=== PATIENT | female | born 1945 | race Caucasian/White ===

== ENCOUNTER 2016-08-03 22:44 | Emergency (ER) | payer MEDICARE, MEDICAID ==
[2016-08-04 00:18] LABS: BASO % 0.6 % (0.0-1.0); EOS # 0.4 K/mm3 (0.0-0.50); LARGE UNSTAINED CELL # 0.2 K/mm3 (0.0-0.4); LARGE UNSTAINED CELL % 3.1 % (0.0-4.0); LYMPH # 2.9 K/mm3 (1.5-4.5); LYMPH % 38.7 % (24.0-44.0); MEAN CORPUSCULAR HEMOGLOBIN 30.7 pg (27.0-33.0); MEAN CORPUSCULAR HGB CONC 33.1 g/dl (32.0-36.5); MEAN CORPUSCULAR VOLUME 92.7 fl (80.0-96.0); MONO # 0.4 K/mm3 (0.0-0.8); MONO % 5.7 % (0.0-5.0); NEUTROPHILS # 3.5 K/mm3 (1.8-7.7); NEUTROPHILS % 46.8 % (36.0-66.0); PLATELET COUNT, AUTOMATED 239 k/mm3 (150-450); RED CELL DISTRIBUTION WIDTH 13.2 % (11.5-14.5); WHITE BLOOD COUNT 7.4 K/mm3 (4.0-10.0)
[2016-08-04] MEDS ORDERED: [UNRECOGNIZED DRUG - OTHER] As Ordered ONE (00:21)
[2016-08-04] MEDS ORDERED: HEPATITIS B IMMUNE GLOBULIN 5ML INJ (J1571) As Ordered ONE (00:21)
[2016-08-04] MEDS ORDERED: ADACEL/BOOSTRIX VACCINE (DIPHTH/PERTUSS/ACELL/TETANUS)0.5ML SYR (90715) As Ordered ONE (00:21)
[2016-08-04 00:45] LABS: ALBUMIN 3.8 GM/DL (3.2-5.2); ALBUMIN/GLOBULIN RATIO 0.88 (1.00-1.93); ALKALINE PHOSPHATASE 78 U/L (45-117); ALT/SGPT 25 U/L (12-78); ANION GAP 9 MEQ/L (8-16); AST/SGOT 14 U/L (15-37); BILIRUBIN,TOTAL 0.2 MG/DL (0.2-1.0); BLOOD UREA NITROGEN 22 MG/DL (7-18); CALCIUM LEVEL 9.5 MG/DL (8.8-10.2); CARBON DIOXIDE LEVEL 29 MEQ/L (21-32); CHLORIDE LEVEL 103 MEQ/L (98-107); CREATININE FOR GFR 0.91 MG/DL (0.55-1.02); GLOMERULAR FILTRATION RATE > 60.0 (>39); GLUCOSE, FASTING 141 MG/DL (83-110); POTASSIUM SERUM 4.4 MEQ/L (3.5-5.1); SODIUM LEVEL 141 MEQ/L (136-145); TOTAL PROTEIN 8.1 GM/DL (6.4-8.2)
[2016-08-04] MEDS ORDERED: EXPOSURE KIT-ADULT 7 DAY SUPPLY As Ordered ONE (01:00)
[2016-08-04 01:01] LABS: CONTROL LINE INT CTR LINE PRESENT
--- NOTE | 2016-08-04 01:16 | EDDOCDS ---
Nurse's Notes [facility] Name: Helen Alexandre Age: 70 yrs Sex: Female : 1945 Arrival Date: 08/03/2016 Time: 22:44 Bed I2 / M2 Private MD: NO PRIMARY PHYSICIAN, . Diagnosis: Puncture wound without foreign body of left thumb without damage to nail;Puncture wound without foreign body of right thumb without damage to nail;Contact with hypodermic needle Presentation: 08/03 22:51 Presenting complaint: Patient states: when taking out grandson's laundry, had needle rs3 stick exposure to bilateral thumb. Grandson and girlfriend uses drugs. Adult Sepsis Screening: The patient does not have new or worsening altered mentation. Patient's respiratory rate is less than 22. Systolic blood pressure is greater than 100. Patient has a qSOFA score of 0- Negative Sepsis Screen. Suicide/Homicide risk assessment- the patient denies having any suicidal and/or homicidal ideations and does not present with any other emotional, behavioral or mental health complaints. Status: Patient is not a career services officer or dependent. Transition of care: patient was not received from another setting of care. 22:51 Acuity: DALLIN Level 4 rs3 22:51 Method Of Arrival: Walkin/Carried/Asstd rs3 Triage Assessment: 23:00 General: Appears in no apparent distress. Pain: Denies pain. rs3 Historical: - Allergies: no known allergies; - Home Meds: 1. Zantac 150 mg Oral cap 1 cap once daily 2. Xanax 1 mg Oral tab 3 times per day 3. Wellbutrin SR 150 mg Oral TbER 2 times per day 4. metformin 500 mg Oral TG24 2 times per day 5. Spiriva with HandiHaler 18 mcg Inhl CpDv 1 cap once daily 6. Levoxyl 100 mcg Oral tab 1 tab once daily 7. Vicodin 5-500 mg Oral tab every 4-6 hours 8. aspirin 325 mg Oral TbEC once daily 9. Calcium + Vitamin D 600 mg calcium- 200 unit Oral tab daily 10. lisinopril 5 mg Oral tab 1 tab once daily 11. Prevacid 30 mg Oral cpDR 1 cap once daily - PMHx: Depression; COPD; Diabetes - NIDDM: controlled; Hypothyroidism; - PSHx: none; - Social history: Smoking status: Patient uses tobacco products, heavy tobacco smoker. No barriers to communication noted, The patient speaks fluent Bulgarian. - Family history: Not pertinent. - : The pt / caregiver states he / she is not on anticoagulants. Home medication list is obtained from the patient. - Exposure Risk Screening:: None identified. Screenin/26 00:13 Screening information is obtained from the patient. Fall risk: No risks identified. jmb Assistance ADL's: requires no assistance with activities of daily living. Abuse/DV Screen: The patient / caregiver reports he/she is: not in a situation that causes fear, pain or injury. Nutritional screening: No deficits noted. home support is adequate. 01:08 Advance Directives: Currently, there is no health care proxy. There is no active DNR jmb order. There is no living will. There is no Power of Emt Driver. Assessment: 00:13 General: Appears in no apparent distress, Behavior is crying. Pain: Denies pain. jmb Neurological: Level of Consciousness is awake, alert, obeys commands, Oriented to person, place, time, Speech is normal, Facial symmetry appears normal, Facial symmetry: tongue is midline. Cardiovascular: Capillary refill < 3 seconds Heart tones present Pulses are all present. Rhythm is regular. Respiratory: Airway is patent Respiratory effort is even, unlabored, Respiratory pattern is regular, symmetrical, Breath sounds are clear bilaterally. GI: Abdomen is non- distended Bowel sounds present X 4 quads. Abd is soft and non tender X 4 quads. Derm: Skin is pink, warm & dry. Musculoskeletal: Range of motion intact in all extremities. 01:08 General: Patient instructed on discharge instructions. Patient asked if there were any b questions regarding discharge, patient stated no. Patient signed discharge instructions. Patient discharged in stable condition. . Injury: 01:10 Injury Description: Needlestick Type of exposure: diabetic needle Site: right hand. b Vital Signs: 08/03 22:49 BP 168 / 83; Pulse 102; Resp 20 S; Temp 97.8(O); Pulse Ox 99% on R/A; Weight 67.13 kg gr2 (R); Height 5 ft. 6 in. (167.64 cm) (R); Pain 3/10; 08/04 01:08 BP 141 / 67; Pulse 83; Resp 18; Temp 98.6; Pulse Ox 98% ; Pain 0/10; ajs 08/03 22:49 Body Mass Index 23.89 (67.13 kg, 167.64 cm) gr2 Vitals: 08/03 22:49 Log In Time: August 03, 2016 at 22:49. gr2 ED Course: 22:48 Patient visited by Benoit Gar. gr2 22:48 NO PRIMARY PHYSICIAN, . is Private Physician. gr2 22:48 Patient moved to Waiting gr2 22:50 Patient visited by Benoit Gar. gr2 22:50 Patient moved to Pre RCE gr2 22:56 Triage Initiated rs3 23:25 Patient moved to Triage 2 dsf 23:34 Mendez Gutierrez PA-C is PHCP. ar2 23:34 Rudolph Leon MD is Attending Physician. ar2 23:34 Patient visited by Mendez Gutierrez PA-C. ar2 23:57 Patient moved to I2 / M2 jmb 08/04 00:12 CBC with Diff Sent. jmb 00:12 Complete Comphrensive Metabolic Sent. jmb 00:12 HIV EXPOSED(ONLY WITH PEP SET) Sent. jmb 00:12 Hepatitis B Surface Antibody Sent. jmb 00:12 Hepatitis B Surface Antigen Sent. jmb 00:13 The patient / caregiver is instructed regarding the plan of care and ED course. jmb 00:13 No IV's were initiated during this patient's visit. No procedures done that require jmb assistance. Labs drawn. (by ED staff). Sent per order to lab. 00:14 Patient visited by Atul Hart RN. jmb 00:35 HEPATITIS C ANTIBODY Sent. jmb 00:38 [facility] Payment Agreement was scanned into [employer] and attached to record. hs2 00:40 Patient name changed from Helen\S\\S\Vanzelf\S\ to Helen\S\ \S\Vanzelf. EDMS 00:58 Gautam Mojica MD is Referral Physician. ar2 00:58 Marcia Warren is Referral Physician. ar2 01:10 Patient visited by Vicki Begum. ajs Administered Medications: 00:35 Drug: Hepatitis B Immune Globulin (0.06ml/kg) 4 ml [hepatitis B immune globulin greatr jmb than 312 unit/mL intramuscular soln (4 mL)] {Food And Beverage Intern: [employer]. Exp: 04/2018. Lot #: [id number]. } Route: IM; Site: right gluteus; 00:36 Drug: Hepatitis B Virus Vaccine (PF) (for 20yo and up) 20 mcg [hepatitis B virus jmb vaccine recomb (PF) 10 mcg/0.5 mL intramuscular susp (1 mL)] {Food And Beverage Intern: [employer]. Exp: 03/18/2018. Lot #: [id number]. } Route: IM; Site: left deltoid; 00:36 Drug: Tetanus- Diptheria-Acellular Pertussis 0.5 ml [diphth,pertussis(acel),tetanus 2.5 jmb Lf unit-8 mcg-5 Lf/0.5mL IM syringe (0.5 mL)] {Food And Beverage Intern: [employer]. Exp: 09/29/2018. Lot #: [id number]. } Route: IM; Site: right deltoid; 01:08 Drug: Exposure Kit (<12y and >40kg or >12y and able to swallow pills) - (Raltegravir jmb Potassium 400 mg, Emtricitabine-Tenofovir 1 tabs) Route: PO; Order Results: Lab Order: CBC with Diff; SPEC'M 08/03/16 23:58 Test: WHITE BLOOD COUNT; Value: 7.4; Range: 4.0-10.0; Units: K/mm3; Status: F Test: RED BLOOD COUNT; Value: 4.22; Range: 4.00-5.40; Units: M/mm3; Status: F Test: HEMOGLOBIN; Value: 12.9; Range: 12.0-16.0; Units: g/dl; Status: F Test: HEMATOCRIT; Value: 39.1; Range: 36.0-47.0; Units: %; Status: F Test: MEAN CORPUSCULAR VOLUME; Value: 92.7; Range: 80.0-96.0; Units: fl; Status: F Test: MEAN CORPUSCULAR HEMOGLOBIN; Value: 30.7; Range: 27.0-33.0; Units: pg; Status: F Test: MEAN CORPUSCULAR HGB CONC; Value: 33.1; Range: 32.0-36.5; Units: g/dl; Status: F Test: RED CELL DISTRIBUTION WIDTH; Value: 13.2; Range: 11.5-14.5; Units: %; Status: F Test: PLATELET COUNT, AUTOMATED; Value: 239; Range: 150-450; Units: k/mm3; Status: F Test: NEUTROPHILS %; Value: 46.8; Range: 36.0-66.0; Units: %; Status: F Test: LYMPH %; Value: 38.7; Range: 24.0-44.0; Units: %; Status: F Test: MONO %; Value: 5.7; Range: 0.0-5.0; Abnormal: Above high normal; Units: %; Status: F Test: EOS %; Value: 5.0; Range: 0.0-3.0; Abnormal: Above high normal; Units: %; Status: F Test: BASO %; Value: 0.6; Range: 0.0-1.0; Units: %; Status: F Test: LARGE UNSTAINED CELL %; Value: 3.1; Range: 0.0-4.0; Units: %; Status: F Test: NEUTROPHILS #; Value: 3.5; Range: 1.8-7.7; Units: K/mm3; Status: F Test: LYMPH #; Value: 2.9; Range: 1.5-4.5; Units: K/mm3; Status: F Test: MONO #; Value: 0.4; Range: 0.0-0.8; Units: K/mm3; Status: F Test: EOS #; Value: 0.4; Range: 0.0-0.50; Units: K/mm3; Status: F Test: BASO #; Value: 0.0; Range: 0.0-0.2; Units: K/mm3; Status: F Test: LARGE UNSTAINED CELL #; Value: 0.2; Range: 0.0-0.4; Units: K/mm3; Status: F Lab Order: Complete Comphrensive Metabolic; SPEC'M 08/03/16 23:58 Test: GLUCOSE, FASTING; Value: 141; Range: 83-110; Abnormal: Above high normal; Units: MG/DL; Status: F Test: BLOOD UREA NITROGEN; Value: 22; Range: 7-18; Abnormal: Above high normal; Units: MG/DL; Status: F Test: CREATININE FOR GFR; Value: 0.91; Range: 0.55-1.02; Units: MG/DL; Status: F Test: GLOMERULAR FILTRATION RATE; Value: > 60.0; Range: >39; Status: F Test: SODIUM LEVEL; Value: 141; Range: 136-145; Units: MEQ/L; Status: F Test: POTASSIUM SERUM; Value: 4.4; Range: 3.5-5.1; Units: MEQ/L; Status: F Test: CHLORIDE LEVEL; Value: 103; Range: 98-107; Units: MEQ/L; Status: F Test: CARBON DIOXIDE LEVEL; Value: 29; Range: 21-32; Units: MEQ/L; Status: F Test: ANION GAP; Value: 9; Range: 8-16; Units: MEQ/L; Status: F Test: CALCIUM LEVEL; Value: 9.5; Range: 8.8-10.2; Units: MG/DL; Status: F Test: AST/SGOT; Value: 14; Range: 15-37; Abnormal: Below low normal; Units: U/L; Status: F Test: ALT/SGPT; Value: 25; Range: 12-78; Units: U/L; Status: F Test: ALKALINE PHOSPHATASE; Value: 78; Range: 45-117; Units: U/L; Status: F Test: BILIRUBIN,TOTAL; Value: 0.2; Range: 0.2-1.0; Units: MG/DL; Status: F Test: TOTAL PROTEIN; Value: 8.1; Range: 6.4-8.2; Units: GM/DL; Status: F Test: ALBUMIN; Value: 3.8; Range: 3.2-5.2; Units: GM/DL; Status: F Test: ALBUMIN/GLOBULIN RATIO; Value: 0.88; Range: 1.00-1.93; Abnormal: Below low normal; Status: F Test Note: ; Units are mL/min/1.73 m2 Chronic Kidney Disease Staging per NKF: Stage I & II GFR >=60 Normal to Mildly Decreased Stage III GFR 30-59 Moderately Decreased Stage IV GFR 15-29 Severely Decreased Stage V GFR <15 Very Little GFR Left ESRD GFR <15 on TYPE PHOTOGRAPHY SUPERVISOR Lab Order: HIV EXPOSED(ONLY WITH PEP SET); SPEC'M 08/03/16 23:58 Test: HIVEXPOSED0; Value: NEGATIVE; Range: NEGATIVE; Status: F Test: HIV EXPOSED PT 1; Value: NEGATIVE; Range: NEGATIVE; Status: F Test Note: ; This test was performed utilizing a immunochromatographic sandwich principle technique. Sensitivity of the assay is 100%. Specificity of the assay is 99.7%. Lab Order: Hepatitis B Surface Antibody; SPEC'M 08/03/16 23:58 Test: HEPATITIS B SURFACE ANTIBODY; Range: POSITIVE; Status: I Lab Order: Hepatitis B Surface Antigen; SPEC'M 08/03/16 23:58 Test: HEPATITIS B SURFACE ANTIGEN; Range: NEGATIVE; Status: I Lab Order: HEPATITIS C ANTIBODY; SPEC'M 08/03/16 23:58 Test: HEPATITIS C VIRUS FRANCIE INDEX; Range: <0.8; Units: INDEX; Status: I Outcome: 00:59 Discharge ordered by Provider. ar2 01:08 Discharge Assessment: Patient awake, alert and oriented x 3. No cognitive and/or jmb functional deficits noted. Patient verbalized understanding of disposition instructions. Patient awake and alert. obeys commands, Oriented to person, place and time. Patient verbalized understanding of disposition instructions. Patient has no functional deficits. patient administered narcotics - no. The following High Risk Discharge criteria are identified: None. Discharged to home ambulatory. Condition: stable. Discharge instructions given to patient, Instructed on discharge instructions, follow up and referral plans. medication usage, Demonstrated understanding of instructions, medications, Pt was receptive of discharge instructions/ teaching. Prescriptions given X 1. No special radiology studies were completed. Property sent home with patient. 01:16 Patient left the ED. patrick Signatures: Dispatcher [employer] EDMS Mendez Gutierrez PA-C PA-C ar2 Marie Awad RN RN rs3 Janina Martell RN RN Vicki Alexander Gainslee gr2 Atul Hart RN RN Nati Graham, Reg Reg hs2 Corrections: (The following items were deleted from the chart) 00:30 00:12 HEPATITIS C ANTIBODY+LAB sent. [facility] EDWA MTDD
--- NOTE | 2016-08-04 01:16 | EDDOCDS ---
Physician Documentation [facility] Name: Helen Alexandre Age: 70 yrs Sex: Female : 1945 Arrival Date: 08/03/2016 Time: 22:44 Bed I2 / M2 Private MD: NO PRIMARY PHYSICIAN, . Disposition: 08/04/16 00:59 Discharged to Home/Self Care. Impression: Puncture wound without foreign body of left thumb without damage to nail, Puncture wound without foreign body of right thumb without damage to nail, Contact with hypodermic needle. - Condition is Stable. - Discharge Instructions: Needle Stick Injury, Puncture Wound. - Prescriptions for Keflex 500 mg Oral Capsule - take 1 capsule by ORAL route every 12 hours for 7 days; 14 capsule. - Medication Reconciliation, Local Pharmacy Hours form. - Follow up: Gautam Mojica MD; When: Tomorrow; Reason: Recheck today's complaints. Follow up: Marcia Warren; When: Call to arrange an appointment; Reason: Recheck today's complaints. Follow up: Emergency Department; When: As needed; Reason: signs of infection. - Problem is new. - Symptoms have improved. - Notes: CALL DR. MOJICA TOMORROW FOR A FOLLOW UP APPOINTMENT. EXPLAIN THAT YOU WERE SEEN AND TREATED IN THE ER FOR A NEEDLE STICK EXPOSURE. TAKE ANTI-VIRAL MEDICATIONS DIRECTED PER PACKAGE INSTRUCTIONS. TAKE ANTIBIOTIC PRESCRIBED. KEEP WOUNDS CLEAN, DRY AND COVERED. FOLLOW UP WITH DR. WARREN WITH INFECTIOUS DISEASE ADVISED. Historical: - Allergies: no known allergies; - Home Meds: 1. Zantac 150 mg Oral cap 1 cap once daily 2. Xanax 1 mg Oral tab 3 times per day 3. Wellbutrin SR 150 mg Oral TbER 2 times per day 4. metformin 500 mg Oral TG24 2 times per day 5. Spiriva with HandiHaler 18 mcg Inhl CpDv 1 cap once daily 6. Levoxyl 100 mcg Oral tab 1 tab once daily 7. Vicodin 5-500 mg Oral tab every 4-6 hours 8. aspirin 325 mg Oral TbEC once daily 9. Calcium + Vitamin D 600 mg calcium- 200 unit Oral tab daily 10. lisinopril 5 mg Oral tab 1 tab once daily 11. Prevacid 30 mg Oral cpDR 1 cap once daily - PMHx: Depression; COPD; Diabetes - NIDDM: controlled; Hypothyroidism; - PSHx: none; - Social history: Smoking status: Patient uses tobacco products, heavy tobacco smoker. No barriers to communication noted, The patient speaks fluent Greenlandic. - Family history: Not pertinent. - : The pt / caregiver states he / she is not on anticoagulants. Home medication list is obtained from the patient. - Exposure Risk Screening:: None identified. Vital Signs: 08/03 22:49 BP 168 / 83; Pulse 102; Resp 20 S; Temp 97.8(O); Pulse Ox 99% on R/A; Weight 67.13 kg / gr2 148 lbs (R); Height 5 ft. 6 in. (167.64 cm) (R); Pain 3/10; 08/04 01:08 BP 141 / 67; Pulse 83; Resp 18; Temp 98.6; Pulse Ox 98% ; Pain 0/10; ajs 08/03 22:49 Body Mass Index 23.89 (67.13 kg, 167.64 cm) gr2 MDM: 08/03 23:52 Place PEP packet on chart ordered. ar2 23:53 CBC with Diff Ordered. EDMS 23:53 Complete Comphrensive Metabolic Ordered. EDMS 23:53 HIV EXPOSED(ONLY WITH PEP SET) Ordered. EDMS 23:53 Hepatitis B Surface Antibody Ordered. EDMS 23:53 Hepatitis B Surface Antigen Ordered. EDMS 08/04 00:18 Exposure Kit (<12y and >40kg or >12y and able to swallow pills) - (Raltegravir ar2 Potassium 400 mg, Emtricitabine-Tenofovir 1 tabs) PO Per package directions; Disp 7d pack.Truvada 1 po daily, Isentress 1 po BID.1st dose in ED ordered. 00:18 Hepatitis B Immune Globulin (0.06ml/kg) 4 ml IM once; *known nonresponders or never ar2 vaccinated only*. Max 5mL ordered. 00:18 Hepatitis B Virus Vaccine (PF) (for 20yo and up) (Engerix-B) 20 mcg IM once ordered. ar2 00:18 Tetanus- Diptheria-Acellular Pertussis 0.5 ml IM once; Routine booster 10-64yrs, >64 ar2 with child [facility] ordered. 00:18 Give 1st dose of PEP meds in ED ordered. ar2 00:26 Financial registration complete. hs2 00:33 HEPATITIS C ANTIBODY Ordered. EDMS 00:38 [facility] Payment Agreement was scanned into [employer] and attached to record. hs2 00:54 CBC with Diff Reviewed. ar2 00:54 Complete Comphrensive Metabolic Reviewed. ar2 Administered Medications: 00:35 Drug: Hepatitis B Immune Globulin (0.06ml/kg) 4 ml [hepatitis B immune globulin greatr jmb than 312 unit/mL intramuscular soln (4 mL)] {Transformation Lead: [employer]. Exp: 04/2018. Lot #: [id number]. } Route: IM; Site: right gluteus; 00:36 Drug: Hepatitis B Virus Vaccine (PF) (for 20yo and up) 20 mcg [hepatitis B virus jmb vaccine recomb (PF) 10 mcg/0.5 mL intramuscular susp (1 mL)] {Transformation Lead: [employer]. Exp: 03/18/2018. Lot #: [id number]. } Route: IM; Site: left deltoid; 00:36 Drug: Tetanus- Diptheria-Acellular Pertussis 0.5 ml [diphth,pertussis(acel),tetanus 2.5 jmb Lf unit-8 mcg-5 Lf/0.5mL IM syringe (0.5 mL)] {Transformation Lead: [employer]. Exp: 09/29/2018. Lot #: [id number]. } Route: IM; Site: right deltoid; 01:08 Drug: Exposure Kit (<12y and >40kg or >12y and able to swallow pills) - (Raltegravir jmb Potassium 400 mg, Emtricitabine-Tenofovir 1 tabs) Route: PO; Signatures: Dispatcher [employer] EDMS Mendez Gutierrez PA-C PA-C ar2 Marie Awad RN RN rs3 Atul Hart RN RN jmb Nati Méndez, Reg Reg hs2 The chart was reviewed and I authenticate all verbal orders and agree with the evaluation and treatment provided.Corrections: (The following items were deleted from the chart) 00:18 08/03 23:52 Consult Employee Health (M-F, 7:30a-4p) or Nursing Sound Art Instructor for source ar2 patient testing ordered. ar2 01/26 00:30 08/03 23:53 HEPATITIS C ANTIBODY+LAB ordered. EDMS EDMS Attachments: 08/04 00:38 [facility] Payment Agreement hs2 MTDD
[2016-08-05 11:42] LABS: HEPATITIS B SURFACE ANTIBODY NEGATIVE (POSITIVE)
--- NOTE | 2016-08-06 02:17 | EDDOCDS ---
Nurse's Notes [facility] Name: Helen Alexandre Age: 70 yrs Sex: Female : 1945 Arrival Date: 08/03/2016 Time: 22:44 Bed I2 / M2 Private MD: NO PRIMARY PHYSICIAN, . Diagnosis: Puncture wound without foreign body of left thumb without damage to nail;Puncture wound without foreign body of right thumb without damage to nail;Contact with hypodermic needle Presentation: 08/03 22:51 Presenting complaint: Patient states: when taking out grandson's laundry, had needle rs3 stick exposure to bilateral thumb. Grandson and girlfriend uses drugs. Adult Sepsis Screening: The patient does not have new or worsening altered mentation. Patient's respiratory rate is less than 22. Systolic blood pressure is greater than 100. Patient has a qSOFA score of 0- Negative Sepsis Screen. Suicide/Homicide risk assessment- the patient denies having any suicidal and/or homicidal ideations and does not present with any other emotional, behavioral or mental health complaints. Status: Patient is not a business services tech or dependent. Transition of care: patient was not received from another setting of care. 22:51 Acuity: DALLIN Level 4 rs3 22:51 Method Of Arrival: Walkin/Carried/Asstd rs3 Triage Assessment: 23:00 General: Appears in no apparent distress. Pain: Denies pain. rs3 Historical: - Allergies: no known allergies; - Home Meds: 1. Zantac 150 mg Oral cap 1 cap once daily 2. Xanax 1 mg Oral tab 3 times per day 3. Wellbutrin SR 150 mg Oral TbER 2 times per day 4. metformin 500 mg Oral TG24 2 times per day 5. Spiriva with HandiHaler 18 mcg Inhl CpDv 1 cap once daily 6. Levoxyl 100 mcg Oral tab 1 tab once daily 7. Vicodin 5-500 mg Oral tab every 4-6 hours 8. aspirin 325 mg Oral TbEC once daily 9. Calcium + Vitamin D 600 mg calcium- 200 unit Oral tab daily 10. lisinopril 5 mg Oral tab 1 tab once daily 11. Prevacid 30 mg Oral cpDR 1 cap once daily - PMHx: Depression; COPD; Diabetes - NIDDM: controlled; Hypothyroidism; - PSHx: none; - Social history: Smoking status: Patient uses tobacco products, heavy tobacco smoker. No barriers to communication noted, The patient speaks fluent Cameroonian. - Family history: Not pertinent. - : The pt / caregiver states he / she is not on anticoagulants. Home medication list is obtained from the patient. - Exposure Risk Screening:: None identified. Screenin/26 00:13 Screening information is obtained from the patient. Fall risk: No risks identified. jmb Assistance ADL's: requires no assistance with activities of daily living. Abuse/DV Screen: The patient / caregiver reports he/she is: not in a situation that causes fear, pain or injury. Nutritional screening: No deficits noted. home support is adequate. 01:08 Advance Directives: Currently, there is no health care proxy. There is no active DNR jmb order. There is no living will. There is no Power of Lard Tub Washer. Assessment: 00:13 General: Appears in no apparent distress, Behavior is crying. Pain: Denies pain. jmb Neurological: Level of Consciousness is awake, alert, obeys commands, Oriented to person, place, time, Speech is normal, Facial symmetry appears normal, Facial symmetry: tongue is midline. Cardiovascular: Capillary refill < 3 seconds Heart tones present Pulses are all present. Rhythm is regular. Respiratory: Airway is patent Respiratory effort is even, unlabored, Respiratory pattern is regular, symmetrical, Breath sounds are clear bilaterally. GI: Abdomen is non- distended Bowel sounds present X 4 quads. Abd is soft and non tender X 4 quads. Derm: Skin is pink, warm & dry. Musculoskeletal: Range of motion intact in all extremities. 01:08 General: Patient instructed on discharge instructions. Patient asked if there were any b questions regarding discharge, patient stated no. Patient signed discharge instructions. Patient discharged in stable condition. . Injury: 01:10 Injury Description: Needlestick Type of exposure: diabetic needle Site: right hand. b Vital Signs: 08/03 22:49 BP 168 / 83; Pulse 102; Resp 20 S; Temp 97.8(O); Pulse Ox 99% on R/A; Weight 67.13 kg gr2 (R); Height 5 ft. 6 in. (167.64 cm) (R); Pain 3/10; 08/04 01:08 BP 141 / 67; Pulse 83; Resp 18; Temp 98.6; Pulse Ox 98% ; Pain 0/10; ajs 08/03 22:49 Body Mass Index 23.89 (67.13 kg, 167.64 cm) gr2 Vitals: 08/03 22:49 Log In Time: August 03, 2016 at 22:49. gr2 ED Course: 22:48 Patient visited by Benoit Gar. gr2 22:48 NO PRIMARY PHYSICIAN, . is Private Physician. gr2 22:48 Patient moved to Waiting gr2 22:50 Patient visited by Benoit Gar. gr2 22:50 Patient moved to Pre RCE gr2 22:56 Triage Initiated rs3 23:25 Patient moved to Triage 2 dsf 23:34 Mendez Gutierrez PA-C is PHCP. ar2 23:34 Rudolph Leon MD is Attending Physician. ar2 23:34 Patient visited by Mendez Gutierrez PA-C. ar2 23:57 Patient moved to I2 / M2 jmb 08/04 00:12 CBC with Diff Sent. jmb 00:12 Complete Comphrensive Metabolic Sent. jmb 00:12 HIV EXPOSED(ONLY WITH PEP SET) Sent. jmb 00:12 Hepatitis B Surface Antibody Sent. jmb 00:12 Hepatitis B Surface Antigen Sent. jmb 00:13 The patient / caregiver is instructed regarding the plan of care and ED course. jmb 00:13 No IV's were initiated during this patient's visit. No procedures done that require jmb assistance. Labs drawn. (by ED staff). Sent per order to lab. 00:14 Patient visited by Atul Hart RN. jmb 00:35 HEPATITIS C ANTIBODY Sent. jmb 00:38 [place] [place] was scanned into [employer] and attached to record. hs2 00:40 Patient name changed from Helen\S\\S\Vanzelf\S\ to Helen\S\ \S\Vanzelf. EDMS 00:58 Gautam Mojica MD is Referral Physician. ar2 00:58 Marcia Warren is Referral Physician. ar2 01:10 Patient visited by Vicki Begum. ajs 12:44 T-Sheet-- Draft Copy was scanned into [employer] and attached to record. gb 12:44 Other: PEP was scanned into [employer] and attached to record. gb Administered Medications: 00:35 Drug: Hepatitis B Immune Globulin (0.06ml/kg) 4 ml [hepatitis B immune globulin greatr jmb than 312 unit/mL intramuscular soln (4 mL)] {Cigarette Filter Inspector: [employer]. Exp: 04/2018. Lot #: [id number]. } Route: IM; Site: right gluteus; 00:36 Drug: Hepatitis B Virus Vaccine (PF) (for 20yo and up) 20 mcg [hepatitis B virus jmb vaccine recomb (PF) 10 mcg/0.5 mL intramuscular susp (1 mL)] {Cigarette Filter Inspector: [employer]. Exp: 03/18/2018. Lot #: [id number]. } Route: IM; Site: left deltoid; 00:36 Drug: Tetanus- Diptheria-Acellular Pertussis 0.5 ml [diphth,pertussis(acel),tetanus 2.5 jmb Lf unit-8 mcg-5 Lf/0.5mL IM syringe (0.5 mL)] {Cigarette Filter Inspector: [employer]. Exp: 09/29/2018. Lot #: [id number]. } Route: IM; Site: right deltoid; 01:08 Drug: Exposure Kit (<12y and >40kg or >12y and able to swallow pills) - (Raltegravir jmb Potassium 400 mg, Emtricitabine-Tenofovir 1 tabs) Route: PO; Order Results: Lab Order: CBC with Diff; SPEC'M 08/03/16 23:58 Test: WHITE BLOOD COUNT; Value: 7.4; Range: 4.0-10.0; Units: K/mm3; Status: F Test: RED BLOOD COUNT; Value: 4.22; Range: 4.00-5.40; Units: M/mm3; Status: F Test: HEMOGLOBIN; Value: 12.9; Range: 12.0-16.0; Units: g/dl; Status: F Test: HEMATOCRIT; Value: 39.1; Range: 36.0-47.0; Units: %; Status: F Test: MEAN CORPUSCULAR VOLUME; Value: 92.7; Range: 80.0-96.0; Units: fl; Status: F Test: MEAN CORPUSCULAR HEMOGLOBIN; Value: 30.7; Range: 27.0-33.0; Units: pg; Status: F Test: MEAN CORPUSCULAR HGB CONC; Value: 33.1; Range: 32.0-36.5; Units: g/dl; Status: F Test: RED CELL DISTRIBUTION WIDTH; Value: 13.2; Range: 11.5-14.5; Units: %; Status: F Test: PLATELET COUNT, AUTOMATED; Value: 239; Range: 150-450; Units: k/mm3; Status: F Test: NEUTROPHILS %; Value: 46.8; Range: 36.0-66.0; Units: %; Status: F Test: LYMPH %; Value: 38.7; Range: 24.0-44.0; Units: %; Status: F Test: MONO %; Value: 5.7; Range: 0.0-5.0; Abnormal: Above high normal; Units: %; Status: F Test: EOS %; Value: 5.0; Range: 0.0-3.0; Abnormal: Above high normal; Units: %; Status: F Test: BASO %; Value: 0.6; Range: 0.0-1.0; Units: %; Status: F Test: LARGE UNSTAINED CELL %; Value: 3.1; Range: 0.0-4.0; Units: %; Status: F Test: NEUTROPHILS #; Value: 3.5; Range: 1.8-7.7; Units: K/mm3; Status: F Test: LYMPH #; Value: 2.9; Range: 1.5-4.5; Units: K/mm3; Status: F Test: MONO #; Value: 0.4; Range: 0.0-0.8; Units: K/mm3; Status: F Test: EOS #; Value: 0.4; Range: 0.0-0.50; Units: K/mm3; Status: F Test: BASO #; Value: 0.0; Range: 0.0-0.2; Units: K/mm3; Status: F Test: LARGE UNSTAINED CELL #; Value: 0.2; Range: 0.0-0.4; Units: K/mm3; Status: F Lab Order: Complete Comphrensive Metabolic; SPEC'M 08/03/16 23:58 Test: GLUCOSE, FASTING; Value: 141; Range: 83-110; Abnormal: Above high normal; Units: MG/DL; Status: F Test: BLOOD UREA NITROGEN; Value: 22; Range: 7-18; Abnormal: Above high normal; Units: MG/DL; Status: F Test: CREATININE FOR GFR; Value: 0.91; Range: 0.55-1.02; Units: MG/DL; Status: F Test: GLOMERULAR FILTRATION RATE; Value: > 60.0; Range: >39; Status: F Test: SODIUM LEVEL; Value: 141; Range: 136-145; Units: MEQ/L; Status: F Test: POTASSIUM SERUM; Value: 4.4; Range: 3.5-5.1; Units: MEQ/L; Status: F Test: CHLORIDE LEVEL; Value: 103; Range: 98-107; Units: MEQ/L; Status: F Test: CARBON DIOXIDE LEVEL; Value: 29; Range: 21-32; Units: MEQ/L; Status: F Test: ANION GAP; Value: 9; Range: 8-16; Units: MEQ/L; Status: F Test: CALCIUM LEVEL; Value: 9.5; Range: 8.8-10.2; Units: MG/DL; Status: F Test: AST/SGOT; Value: 14; Range: 15-37; Abnormal: Below low normal; Units: U/L; Status: F Test: ALT/SGPT; Value: 25; Range: 12-78; Units: U/L; Status: F Test: ALKALINE PHOSPHATASE; Value: 78; Range: 45-117; Units: U/L; Status: F Test: BILIRUBIN,TOTAL; Value: 0.2; Range: 0.2-1.0; Units: MG/DL; Status: F Test: TOTAL PROTEIN; Value: 8.1; Range: 6.4-8.2; Units: GM/DL; Status: F Test: ALBUMIN; Value: 3.8; Range: 3.2-5.2; Units: GM/DL; Status: F Test: ALBUMIN/GLOBULIN RATIO; Value: 0.88; Range: 1.00-1.93; Abnormal: Below low normal; Status: F Test Note: ; Units are mL/min/1.73 m2 Chronic Kidney Disease Staging per NKF: Stage I & II GFR >=60 Normal to Mildly Decreased Stage III GFR 30-59 Moderately Decreased Stage IV GFR 15-29 Severely Decreased Stage V GFR <15 Very Little GFR Left ESRD GFR <15 on INSTRUMENT ENGINEER Lab Order: HIV EXPOSED(ONLY WITH PEP SET); SPEC'M 08/03/16 23:58 Test: HIVEXPOSED0; Value: NEGATIVE; Range: NEGATIVE; Status: F Test: HIV EXPOSED PT 1; Value: NEGATIVE; Range: NEGATIVE; Status: F Test Note: ; This test was performed utilizing a immunochromatographic sandwich principle technique. Sensitivity of the assay is 100%. Specificity of the assay is 99.7%. Lab Order: Hepatitis B Surface Antibody; SPEC'M 08/03/16 23:58 Test: HEPATITIS B SURFACE ANTIBODY; Value: NEGATIVE; Range: POSITIVE; Status: F Lab Order: Hepatitis B Surface Antigen; SPEC'M 08/03/16 23:58 Test: HEPATITIS B SURFACE ANTIGEN; Value: NEGATIVE; Range: NEGATIVE; Status: F Lab Order: HEPATITIS C ANTIBODY; SPEC'M 08/03/16 23:58 Test: HEPATITIS C VIRUS FRANCIE INDEX; Value: 0.8; Range: <0.8; Units: INDEX; Status: F Test Note: ; Negative Not infected with HCV, unless recent infection is suspected or other evidence exists to indicate HCV infection. Outcome: 00:59 Discharge ordered by Provider. ar2 01:08 Discharge Assessment: Patient awake, alert and oriented x 3. No cognitive and/or jmb functional deficits noted. Patient verbalized understanding of disposition instructions. Patient awake and alert. obeys commands, Oriented to person, place and time. Patient verbalized understanding of disposition instructions. Patient has no functional deficits. patient administered narcotics - no. The following High Risk Discharge criteria are identified: None. Discharged to home ambulatory. Condition: stable. Discharge instructions given to patient, Instructed on discharge instructions, follow up and referral plans. medication usage, Demonstrated understanding of instructions, medications, Pt was receptive of discharge instructions/ teaching. Prescriptions given X 1. No special radiology studies were completed. Property sent home with patient. 01:16 Patient left the ED. jmb Signatures: Dispatcher [employer] EDMS Polly Zepeda, Adonis Reg Mendez Lopez, PA-C PAJf ar2 Marie Awad RN RN rs3 Janina Martell RN RN dsf Vicki Begum Gainslee gr2 Atul Hart RN RN giorgib Nati Méndez, Reg Reg hs2 Corrections: (The following items were deleted from the chart) 00:30 00:12 HEPATITIS C ANTIBODY+LAB sent. patrick CELIS Chart Complete MTDD
--- NOTE | 2016-08-06 02:17 | EDDOCDS ---
Physician Documentation [facility] Name: Helen Alexandre Age: 70 yrs Sex: Female : 1945 Arrival Date: 08/03/2016 Time: 22:44 Bed I2 / M2 Private MD: NO PRIMARY PHYSICIAN, . Disposition: 08/04/16 00:59 Discharged to Home/Self Care. Impression: Puncture wound without foreign body of left thumb without damage to nail, Puncture wound without foreign body of right thumb without damage to nail, Contact with hypodermic needle. - Condition is Stable. - Discharge Instructions: Needle Stick Injury, Puncture Wound. - Prescriptions for Keflex 500 mg Oral Capsule - take 1 capsule by ORAL route every 12 hours for 7 days; 14 capsule. - Medication Reconciliation, Local Pharmacy Hours form. - Follow up: Gautam Mojica MD; When: Tomorrow; Reason: Recheck today's complaints. Follow up: Marcia Warren; When: Call to arrange an appointment; Reason: Recheck today's complaints. Follow up: Emergency Department; When: As needed; Reason: signs of infection. - Problem is new. - Symptoms have improved. - Notes: CALL DR. MOJICA TOMORROW FOR A FOLLOW UP APPOINTMENT. EXPLAIN THAT YOU WERE SEEN AND TREATED IN THE ER FOR A NEEDLE STICK EXPOSURE. TAKE ANTI-VIRAL MEDICATIONS DIRECTED PER PACKAGE INSTRUCTIONS. TAKE ANTIBIOTIC PRESCRIBED. KEEP WOUNDS CLEAN, DRY AND COVERED. FOLLOW UP WITH DR. WARREN WITH INFECTIOUS DISEASE ADVISED. Historical: - Allergies: no known allergies; - Home Meds: 1. Zantac 150 mg Oral cap 1 cap once daily 2. Xanax 1 mg Oral tab 3 times per day 3. Wellbutrin SR 150 mg Oral TbER 2 times per day 4. metformin 500 mg Oral TG24 2 times per day 5. Spiriva with HandiHaler 18 mcg Inhl CpDv 1 cap once daily 6. Levoxyl 100 mcg Oral tab 1 tab once daily 7. Vicodin 5-500 mg Oral tab every 4-6 hours 8. aspirin 325 mg Oral TbEC once daily 9. Calcium + Vitamin D 600 mg calcium- 200 unit Oral tab daily 10. lisinopril 5 mg Oral tab 1 tab once daily 11. Prevacid 30 mg Oral cpDR 1 cap once daily - PMHx: Depression; COPD; Diabetes - NIDDM: controlled; Hypothyroidism; - PSHx: none; - Social history: Smoking status: Patient uses tobacco products, heavy tobacco smoker. No barriers to communication noted, The patient speaks fluent Dutch. - Family history: Not pertinent. - : The pt / caregiver states he / she is not on anticoagulants. Home medication list is obtained from the patient. - Exposure Risk Screening:: None identified. Vital Signs: 08/03 22:49 BP 168 / 83; Pulse 102; Resp 20 S; Temp 97.8(O); Pulse Ox 99% on R/A; Weight 67.13 kg / gr2 148 lbs (R); Height 5 ft. 6 in. (167.64 cm) (R); Pain 3/10; 08/04 01:08 BP 141 / 67; Pulse 83; Resp 18; Temp 98.6; Pulse Ox 98% ; Pain 0/10; ajs 08/03 22:49 Body Mass Index 23.89 (67.13 kg, 167.64 cm) gr2 MDM: 08/03 23:52 Place PEP packet on chart ordered. ar2 23:53 CBC with Diff Ordered. EDMS 23:53 Complete Comphrensive Metabolic Ordered. EDMS 23:53 HIV EXPOSED(ONLY WITH PEP SET) Ordered. EDMS 23:53 Hepatitis B Surface Antibody Ordered. EDMS 23:53 Hepatitis B Surface Antigen Ordered. EDMS 08/04 00:18 Exposure Kit (<12y and >40kg or >12y and able to swallow pills) - (Raltegravir ar2 Potassium 400 mg, Emtricitabine-Tenofovir 1 tabs) PO Per package directions; Disp 7d pack.Truvada 1 po daily, Isentress 1 po BID.1st dose in ED ordered. 00:18 Hepatitis B Immune Globulin (0.06ml/kg) 4 ml IM once; *known nonresponders or never ar2 vaccinated only*. Max 5mL ordered. 00:18 Hepatitis B Virus Vaccine (PF) (for 20yo and up) (Engerix-B) 20 mcg IM once ordered. ar2 00:18 Tetanus- Diptheria-Acellular Pertussis 0.5 ml IM once; Routine booster 10-64yrs, >64 ar2 with child contact [facility] ordered. 00:18 Give 1st dose of PEP meds in ED ordered. ar2 00:26 Financial registration complete. hs2 00:33 HEPATITIS C ANTIBODY Ordered. EDMS 00:38 [facility] Payment Agreement was scanned into [employer] and attached to record. hs2 00:54 CBC with Diff Reviewed. ar2 00:54 Complete Comphrensive Metabolic Reviewed. ar2 12:44 T-Sheet-- Draft Copy was scanned into [employer] and attached to record. gb 12:44 Other: PEP was scanned into [employer] and attached to record. gb Administered Medications: 00:35 Drug: Hepatitis B Immune Globulin (0.06ml/kg) 4 ml [hepatitis B immune globulin greatr jmb than 312 unit/mL intramuscular soln (4 mL)] {Clutch Operator: [employer]. Exp: 04/2018. Lot #: [id number]. } Route: IM; Site: right gluteus; 00:36 Drug: Hepatitis B Virus Vaccine (PF) (for 20yo and up) 20 mcg [hepatitis B virus jmb vaccine recomb (PF) 10 mcg/0.5 mL intramuscular susp (1 mL)] {Clutch Operator: [email or web address]. Exp: 03/18/2018. Lot #: [id number]. } Route: IM; Site: left deltoid; 00:36 Drug: Tetanus- Diptheria-Acellular Pertussis 0.5 ml [diphth,pertussis(acel),tetanus 2.5 jmb Lf unit-8 mcg-5 Lf/0.5mL IM syringe (0.5 mL)] {Clutch Operator: [email or web address]. Exp: 09/29/2018. Lot #: [id number]. } Route: IM; Site: right deltoid; 01:08 Drug: Exposure Kit (<12y and >40kg or >12y and able to swallow pills) - (Raltegravir jmb Potassium 400 mg, Emtricitabine-Tenofovir 1 tabs) Route: PO; Signatures: Dispatcher [employer] EDMS Polly Zepeda, Reg Reg gb Mendez Gutierrez, ALIX PAJf ar2 Marie Awad RN RN rs3 Atul Hart RN RN jmb Nati Méndez, Reg Reg hs2 The chart was reviewed and I authenticate all verbal orders and agree with the evaluation and treatment provided.Corrections: (The following items were deleted from the chart) 00:18 08/03 23:52 Consult Employee Health (M-F, 7:30a-4p) or Nursing Heel Nailing Machine Operator for source ar2 patient testing ordered. ar2 08/04 00:30 08/03 23:53 HEPATITIS C ANTIBODY+LAB ordered. EDMS EDMS Attachments: 08/04 00:38 [place] [place] Payment Agreement hs2 12:44 T-Sheet-- Draft Copy gb Chart Complete MTDD
--- NOTE | 2016-08-06 02:17 | EDDOCDS ---
Physician Documentation [facility] Name: Helen Alexandre Age: 70 yrs Sex: Female : 1945 Arrival Date: 08/03/2016 Time: 22:44 Bed I2 / M2 Private MD: NO PRIMARY PHYSICIAN, . Disposition: 08/04/16 00:59 Discharged to Home/Self Care. Impression: Puncture wound without foreign body of left thumb without damage to nail, Puncture wound without foreign body of right thumb without damage to nail, Contact with hypodermic needle. - Condition is Stable. - Discharge Instructions: Needle Stick Injury, Puncture Wound. - Prescriptions for Keflex 500 mg Oral Capsule - take 1 capsule by ORAL route every 12 hours for 7 days; 14 capsule. - Medication Reconciliation, Local Pharmacy Hours form. - Follow up: Gautam Mojica MD; When: Tomorrow; Reason: Recheck today's complaints. Follow up: Marcia Warren; When: Call to arrange an appointment; Reason: Recheck today's complaints. Follow up: Emergency Department; When: As needed; Reason: signs of infection. - Problem is new. - Symptoms have improved. - Notes: CALL DR. MOJICA TOMORROW FOR A FOLLOW UP APPOINTMENT. EXPLAIN THAT YOU WERE SEEN AND TREATED IN THE ER FOR A NEEDLE STICK EXPOSURE. TAKE ANTI-VIRAL MEDICATIONS DIRECTED PER PACKAGE INSTRUCTIONS. TAKE ANTIBIOTIC PRESCRIBED. KEEP WOUNDS CLEAN, DRY AND COVERED. FOLLOW UP WITH DR. WARREN WITH INFECTIOUS DISEASE ADVISED. Historical: - Allergies: no known allergies; - Home Meds: 1. Zantac 150 mg Oral cap 1 cap once daily 2. Xanax 1 mg Oral tab 3 times per day 3. Wellbutrin SR 150 mg Oral TbER 2 times per day 4. metformin 500 mg Oral TG24 2 times per day 5. Spiriva with HandiHaler 18 mcg Inhl CpDv 1 cap once daily 6. Levoxyl 100 mcg Oral tab 1 tab once daily 7. Vicodin 5-500 mg Oral tab every 4-6 hours 8. aspirin 325 mg Oral TbEC once daily 9. Calcium + Vitamin D 600 mg calcium- 200 unit Oral tab daily 10. lisinopril 5 mg Oral tab 1 tab once daily 11. Prevacid 30 mg Oral cpDR 1 cap once daily - PMHx: Depression; COPD; Diabetes - NIDDM: controlled; Hypothyroidism; - PSHx: none; - Social history: Smoking status: Patient uses tobacco products, heavy tobacco smoker. No barriers to communication noted, The patient speaks fluent Dominican. - Family history: Not pertinent. - : The pt / caregiver states he / she is not on anticoagulants. Home medication list is obtained from the patient. - Exposure Risk Screening:: None identified. Vital Signs: 08/03 22:49 BP 168 / 83; Pulse 102; Resp 20 S; Temp 97.8(O); Pulse Ox 99% on R/A; Weight 67.13 kg / gr2 148 lbs (R); Height 5 ft. 6 in. (167.64 cm) (R); Pain 3/10; 08/04 01:08 BP 141 / 67; Pulse 83; Resp 18; Temp 98.6; Pulse Ox 98% ; Pain 0/10; ajs 08/03 22:49 Body Mass Index 23.89 (67.13 kg, 167.64 cm) gr2 MDM: 08/03 23:52 Place PEP packet on chart ordered. ar2 23:53 CBC with Diff Ordered. EDMS 23:53 Complete Comphrensive Metabolic Ordered. EDMS 23:53 HIV EXPOSED(ONLY WITH PEP SET) Ordered. EDMS 23:53 Hepatitis B Surface Antibody Ordered. EDMS 23:53 Hepatitis B Surface Antigen Ordered. EDMS 08/04 00:18 Exposure Kit (<12y and >40kg or >12y and able to swallow pills) - (Raltegravir ar2 Potassium 400 mg, Emtricitabine-Tenofovir 1 tabs) PO Per package directions; Disp 7d pack.Truvada 1 po daily, Isentress 1 po BID.1st dose in ED ordered. 00:18 Hepatitis B Immune Globulin (0.06ml/kg) 4 ml IM once; *known nonresponders or never ar2 vaccinated only*. Max 5mL ordered. 00:18 Hepatitis B Virus Vaccine (PF) (for 20yo and up) (Engerix-B) 20 mcg IM once ordered. ar2 00:18 Tetanus- Diptheria-Acellular Pertussis 0.5 ml IM once; Routine booster 10-64yrs, >64 ar2 with child contact [facility] ordered. 00:18 Give 1st dose of PEP meds in ED ordered. ar2 00:26 Financial registration complete. hs2 00:33 HEPATITIS C ANTIBODY Ordered. EDMS 00:38 [facility] Payment Agreement was scanned into [email or web address] and attached to record. hs2 00:54 CBC with Diff Reviewed. ar2 00:54 Complete Comphrensive Metabolic Reviewed. ar2 12:44 T-Sheet-- Draft Copy was scanned into [email or web address] and attached to record. gb 12:44 Other: PEP was scanned into [email or web address] and attached to record. gb Administered Medications: 00:35 Drug: Hepatitis B Immune Globulin (0.06ml/kg) 4 ml [hepatitis B immune globulin greatr jmb than 312 unit/mL intramuscular soln (4 mL)] {Head Transfer Clerk: [employer]. Exp: 04/2018. Lot #: [id number]. } Route: IM; Site: right gluteus; 00:36 Drug: Hepatitis B Virus Vaccine (PF) (for 20yo and up) 20 mcg [hepatitis B virus jmb vaccine recomb (PF) 10 mcg/0.5 mL intramuscular susp (1 mL)] {Head Transfer Clerk: [employer]. Exp: 03/18/2018. Lot #: [id number]. } Route: IM; Site: left deltoid; 00:36 Drug: Tetanus- Diptheria-Acellular Pertussis 0.5 ml [diphth,pertussis(acel),tetanus 2.5 jmb Lf unit-8 mcg-5 Lf/0.5mL IM syringe (0.5 mL)] {Head Transfer Clerk: [employer]. Exp: 09/29/2018. Lot #: [id number]. } Route: IM; Site: right deltoid; 01:08 Drug: Exposure Kit (<12y and >40kg or >12y and able to swallow pills) - (Raltegravir jmb Potassium 400 mg, Emtricitabine-Tenofovir 1 tabs) Route: PO; Signatures: Dispatcher [employer] EDMS Polly Zepeda, Reg Reg gb Mendez Gutierrez, ALIX PAJf ar2 Marie Awad RN RN rs3 Atul Hart RN RN jmb Nati Méndez, Reg Reg hs2 The chart was reviewed and I authenticate all verbal orders and agree with the evaluation and treatment provided.Corrections: (The following items were deleted from the chart) 00:18 08/03 23:52 Consult Employee Health (M-F, 7:30a-4p) or Nursing Rn Nursery for source ar2 patient testing ordered. ar2 08/04 00:30 08/03 23:53 HEPATITIS C ANTIBODY+LAB ordered. EDMS EDMS Attachments: 08/04 00:38 [place] [place] Payment Agreement hs2 12:44 T-Sheet-- Draft Copy gb Chart Complete MTDD
== END 2016-08-04 01:16 | disposition home or self-care (01) ==
LOC: M ED 22:44
DX: S61.032A Puncture wound without foreign body of left thumb without damage to nail, initial encounter (principal); S61.031A Puncture wound without foreign body of right thumb without damage to nail, initial encounter; W46.0XXA Contact with hypodermic needle, initial encounter; Y92.018 Other place in single-family (private) house as the place of occurrence of the external cause; Y93.E2 Activity, laundry; Y99.8 Other external cause status; E11.9 Type 2 diabetes mellitus without complications; J44.9 Chronic obstructive pulmonary disease, unspecified; E03.9 Hypothyroidism, unspecified; F32.9 Major depressive disorder, single episode, unspecified; Z79.899 Other long term (current) drug therapy; Z79.84 Long term (current) use of oral hypoglycemic drugs; Z79.82 Long term (current) use of aspirin; F17.210 Nicotine dependence, cigarettes, uncomplicated
CPT/HCPCS: 36415; 80053; 85025; 86706; 86803; 87340; 87806; 90471; 90472; 90715; 90744; 96372; 99283; J1571

== ENCOUNTER → 2016-08-17 | Outpatient (REF) | payer MEDICARE, MEDICAID | LOC: M SMT 12:58 | PROVIDERS: ATTEND Internal Medicine Infectious Disease | DX: Z13.9 Encounter for screening, unspecified (principal); W27.3XXA Contact with needle (sewing), initial encounter; Y92.89 Other specified places as the place of occurrence of the external cause; Y93.89 Activity, other specified; Y99.8 Other external cause status; Z20.5 Contact with and (suspected) exposure to viral hepatitis; R30.0 Dysuria ==

== ENCOUNTER → 2016-09-19 | Outpatient (REF) | payer MEDICARE, MEDICAID ==
[2016-09-19 19:10] LABS: FREE T4 1.32 NG/DL (0.76-1.46)
[2016-09-19 19:32] LABS: ALBUMIN 3.5 GM/DL (3.2-5.2); ALBUMIN/GLOBULIN RATIO 0.92 (1.00-1.93); ALKALINE PHOSPHATASE 73 U/L (45-117); ALT/SGPT 22 U/L (12-78); ANION GAP 10 MEQ/L (8-16); AST/SGOT 13 U/L (15-37); BILIRUBIN,TOTAL 0.2 MG/DL (0.2-1.0); BLOOD UREA NITROGEN 20 MG/DL (7-18); CALCIUM LEVEL 9.2 MG/DL (8.8-10.2); CARBON DIOXIDE LEVEL 27 MEQ/L (21-32); CHLORIDE LEVEL 104 MEQ/L (98-107); CREATININE FOR GFR 0.83 MG/DL (0.55-1.02); GLOMERULAR FILTRATION RATE > 60.0 (>39); GLUCOSE, FASTING 104 MG/DL (83-110); POTASSIUM SERUM 4.9 MEQ/L (3.5-5.1); SODIUM LEVEL 141 MEQ/L (136-145); TOTAL PROTEIN 7.3 GM/DL (6.4-8.2)
[2016-09-20 14:13] LABS: HIV SCRN NEGATIVE (NEGATIVE); HIV SCRN1 NEGATIVE (NEGATIVE)
[2016-09-20 14:14] LABS: CONTROL LINE INT CTR LINE PRESENT
[2016-09-23 00:10] LABS: HEPATITIS C QUANTITATION HCV Not Detected IU/mL (.)
== END ==
LOC: M SFHCCLAY 11:38
PROVIDERS: ATTEND Family Medicine
DX: E03.9 Hypothyroidism, unspecified (principal); E11.9 Type 2 diabetes mellitus without complications; Z20.5 Contact with and (suspected) exposure to viral hepatitis; W27.3XXA Contact with needle (sewing), initial encounter; Y92.89 Other specified places as the place of occurrence of the external cause; Y93.89 Activity, other specified; Y99.8 Other external cause status; Z79.899 Other long term (current) drug therapy

== ENCOUNTER → 2018-01-15 | Outpatient (REF) | payer MEDICARE, MEDICAID ==
[2018-01-15 17:24] LABS: ALBUMIN 3.6 GM/DL (3.2-5.2); ALBUMIN/GLOBULIN RATIO 0.97 (1.00-1.93); ALKALINE PHOSPHATASE 80 U/L (45-117); ALT/SGPT 27 U/L (12-78); ANION GAP 5 MEQ/L (8-16); AST/SGOT 17 U/L (7-37); BILIRUBIN,TOTAL 0.2 MG/DL (0.2-1.0); BLOOD UREA NITROGEN 17 MG/DL (7-18); CALCIUM LEVEL 9.4 MG/DL (8.8-10.2); CARBON DIOXIDE LEVEL 30 MEQ/L (21-32); CHLORIDE LEVEL 109 MEQ/L (98-107); CREATININE FOR GFR 0.92 MG/DL (0.55-1.30); FREE T4 1.26 NG/DL (0.76-1.46); GLOMERULAR FILTRATION RATE > 60.0 (>39); GLUCOSE, FASTING 123 MG/DL (70-100); POTASSIUM SERUM 5.1 MEQ/L (3.5-5.1); SODIUM LEVEL 144 MEQ/L (136-145); TOTAL PROTEIN 7.3 GM/DL (6.4-8.2)
[2018-01-15 17:27] LABS: ESTIMATED AVERAGE GLUCOSE 151 MG/DL (60-110); HEMOGLOBIN A1c 6.9 %
== END ==
LOC: M SFHCCLAY 11:57
DX: E11.9 Type 2 diabetes mellitus without complications (principal); E03.9 Hypothyroidism, unspecified
CPT/HCPCS: 84443

== ENCOUNTER → 2018-06-25 | Outpatient (REF) | payer MEDICARE, MEDICAID ==
[2018-06-26 12:01] LABS: ALBUMIN 3.4 GM/DL (3.2-5.2); ALT/SGPT 24 U/L (12-78); BILIRUBIN,TOTAL 0.3 MG/DL (0.2-1.0); BLOOD UREA NITROGEN 15 MG/DL (7-18); CARBON DIOXIDE LEVEL 26 MEQ/L (21-32); CHLORIDE LEVEL 106 MEQ/L (98-107); CHOLESTEROL LEVEL 162 MG/DL (<200); CHOLESTEROL RISK RATIO 2.842 (<5); CREATININE FOR GFR 0.93 MG/DL (0.55-1.30); FREE T4 1.58 NG/DL (0.76-1.46); GLOMERULAR FILTRATION RATE > 60.0 (>39); GLUCOSE, FASTING 137 MG/DL (70-100); HDL CHOLESTEROL 57 MG/DL (>40); LDL CHOLESTEROL 91 MG/DL (<100); NON-HDL-C 105 MG/DL; POTASSIUM SERUM 4.8 MEQ/L (3.5-5.1); SODIUM LEVEL 141 MEQ/L (136-145); TOTAL PROTEIN 7.9 GM/DL (6.4-8.2); TRIGLYCERIDES LEVEL 71 MG/DL (<150)
[2018-06-26 12:33] LABS: BASO # 0.1 10^3/uL (0.0-0.2); BASO % 0.7 % (0.0-1.0); EOS # 0.1 10^3/uL (0.0-0.50); EOS % 1.3 % (0.0-3.0); HEMATOCRIT 37.8 % (36.0-47.0); HEMOGLOBIN 12.1 g/dl (12.0-15.5); LYMPH # 2.4 10^3/uL (1.5-4.5); LYMPH % 33.2 % (24.0-44.0); MEAN CORPUSCULAR HEMOGLOBIN 29.2 pg (27.0-33.0); MEAN CORPUSCULAR VOLUME 91.1 fl (80.0-96.0); MONO # 0.6 10^3/uL (0.0-0.8); MONO % 8.8 % (0.0-5.0); NEUTROPHILS # 3.9 10^3/uL (1.8-7.7); NEUTROPHILS % 54.3 % (36.0-66.0); PLATELET COUNT, AUTOMATED 253 10^3/uL (150-450); RED BLOOD COUNT 4.15 10^6/uL (4.00-5.40); WHITE BLOOD COUNT 7.2 10^3/uL (4.0-10.0)
== END ==
LOC: M SFHCCLAY 13:47
PROVIDERS: ATTEND Family Medicine
DX: R42 Dizziness and giddiness (principal); E03.9 Hypothyroidism, unspecified; E11.9 Type 2 diabetes mellitus without complications
CPT/HCPCS: 36415; 80053; 80061; 82948; 84439; 84443; 85025; G0463

== ENCOUNTER 2018-08-18 21:51 | Inpatient (IN) | payer MEDICARE, MEDICAID ==
[~2018-08-18] VITALS: Ht 165.1 cm; Wt 89.0 kg
[2018-08-18] MEDS ORDERED: NS 1,000 ML IV ONE (22:45)
[2018-08-18] MEDS ORDERED: ACETAMINOPHEN 325 MG TAB PO ONE (22:45)
[2018-08-18] MEDS ORDERED: FISH7.5C PO (22:46)
[2018-08-18] MEDS ORDERED: CALC600T57 PO (22:47)
[2018-08-18] MEDS ORDERED: PREV1CAP PO (22:47)
[2018-08-18] MEDS ORDERED: ASPIRIN (22:48)
[2018-08-18] MEDS ORDERED: METF500T13 PO (22:49)
[2018-08-18] MEDS ORDERED: RANI150C PO (22:50)
[2018-08-18] MEDS ORDERED: DAILTAB51 PO (22:50)
[2018-08-18] MEDS ORDERED: LEVO100T5 PO (22:50)
[2018-08-18] MEDS ORDERED: ALPR2TAB3 PO (22:51)
[2018-08-18] MEDS ORDERED: BUPR150T5 PO (22:51)
[2018-08-18] MEDS ORDERED: GARL400T5 PO (22:51)
[2018-08-18] MEDS ORDERED: LISI-542 PO (22:51)
[2018-08-18 22:55] LABS: BASO % 0.3 % (0.0-1.0); EOS % 0.1 % (0.0-3.0); HEMOGLOBIN 14.2 g/dl (12.0-15.5); LYMPH # 1.6 10^3/uL (1.5-4.5); LYMPH % 10.8 % (24.0-44.0); MEAN CORPUSCULAR HEMOGLOBIN 29.8 pg (27.0-33.0); MEAN CORPUSCULAR HGB CONC 32.3 g/dl (32.0-36.5); MEAN CORPUSCULAR VOLUME 92.4 fl (80.0-96.0); MONO # 1.3 10^3/uL (0.0-0.8); MONO % 8.8 % (0.0-5.0); NEUTROPHILS # 11.6 10^3/uL (1.8-7.7); NEUTROPHILS % 79.6 % (36.0-66.0); PLATELET COUNT, AUTOMATED 212 10^3/uL (150-450); RED BLOOD COUNT 4.76 10^6/uL (4.00-5.40); WHITE BLOOD COUNT 14.6 10^3/uL (4.0-10.0)
[2018-08-18 23:00] LABS: APPEARANCE, URINE HAZY (CLEAR); BACTERIA, URINE AUTO 1+ (NEGATIVE); BILIRUBIN, URINE AUTO NEGATIVE (NEGATIVE); BLOOD, URINE BLOOD 1+ (NEGATIVE); COLOR, URINE YELLOW (YELLOW); GLUCOSE, URINE (UA) AUTO NEGATIVE (NEGATIVE); KETONE, URINE AUTO NEGATIVE (NEGATIVE); LEUKOCYTE ESTERASE, URINE AUTO 1+ (NEGATIVE); NITRITE, URINE AUTO POSITIVE (NEGATIVE); PROTEIN, URINE AUTO 2+ mg/dL (NEGATIVE); RBC, URINE AUTO 16 /HPF (0-3); SPECIFIC GRAVITY URINE AUTO 1.012 (1.002-1.035); SQUAMOUS EPITHELIAL CELL UR AU 0 /HPF (0-6); UROBILINOGEN, URINE AUTO 0.2 mg/dL (0.0-2.0); WBC, URINE AUTO 62 /HPF (0-3)
[2018-08-18] MEDS ORDERED: LIDOCAINE 2% 5ML JELLY UROJET TOP ONE (23:00)
[2018-08-18 23:51] LABS: INFLUENZA A AMPLIFICATION NEGATIVE (NEGATIVE); INFLUENZA B AMPLIFICATION NEGATIVE (NEGATIVE)
[2018-08-19 00:05] LABS: ALBUMIN 3.6 GM/DL (3.2-5.2); ALT/SGPT 24 U/L (12-78); BILIRUBIN,DIRECT 0.2 MG/DL (0.0-0.2); BILIRUBIN,TOTAL 0.6 MG/DL (0.2-1.0); BLOOD UREA NITROGEN 20 MG/DL (7-18); CALCIUM LEVEL 8.6 MG/DL (8.8-10.2); CARBON DIOXIDE LEVEL 24 MEQ/L (21-32); CHLORIDE LEVEL 103 MEQ/L (98-107); CREATININE FOR GFR 0.96 MG/DL (0.55-1.30); FREE THYROXINE INDEX 4.2 % (1.3-4.8); GLOMERULAR FILTRATION RATE > 60.0 (>39); GLUCOSE, FASTING 140 MG/DL (70-100); POTASSIUM SERUM 4.4 MEQ/L (3.5-5.1); SODIUM LEVEL 136 MEQ/L (136-145); T UPTAKE 32 % (30-39); THYROID STIMULATING HORMONE 0.522 uIU/ML (0.358-3.740); THYROXINE (T4) 13.1 UG/DL (4.5-12.0)
[2018-08-19] MEDS ORDERED: cefTRIAXone SOD 2 GM in D5W MINI-BAG PLUS 50 ML IV ONE (00:15)
--- NOTE | 2018-08-19 00:17 | REPVR ---
EXAM: CT Head Without Contrast EXAM DATE/TIME: 08/18/2018 11:27 PM CLINICAL HISTORY: 72 years old, female; Signs and symptoms; Altered mental status/memory loss and fever; Confusion or disorientation; Additional info: Confusion/fever TECHNIQUE: Axial computed tomography images of the head/brain without contrast. All CT scans at this facility use at least one of these dose optimization techniques: automated exposure control; mA and/or kV adjustment per patient size (includes targeted exams where dose is matched to clinical indication); or iterative reconstruction. COMPARISON: No relevant prior studies available. FINDINGS: Brain: There is no evidence of intracranial bleed. The albert-white differentiation and appears preserved. Ventricles: Normal appearing ventricles. Bones/joints: No evidence of fracture. Sinuses: Mild mucosal thickening in the ethmoid sinuses possibly related to changes of sinusitis. There is prominence of the nasal turbinates at the left nasal airway. The midline nasal septum is deviated towards the right. Mastoid air cells: Clear mastoid air cells. Soft tissues: Unremarkable. IMPRESSION: 1. No evidence of bleed. 2. No evidence of mass effect. 3. Mild mucosal thickening of the ethmoid sinuses possibly related to sinusitis. Electronically signed by: Beni Mark On 08/19/2018 00:17:24 AM
--- NOTE | 2018-08-19 01:36 | REPVR ---
EXAM: CT Abdomen and Pelvis Without Contrast EXAM DATE/TIME: 08/19/2018 12:19 AM CLINICAL HISTORY: 72 years old, female; Signs and symptoms; Fever; Additional info: Colic TECHNIQUE: Axial computed tomography images of the abdomen and pelvis without contrast. All CT scans at this facility use at least one of these dose optimization techniques: automated exposure control; mA and/or kV adjustment per patient size (includes targeted exams where dose is matched to clinical indication); or iterative reconstruction. Coronal and sagittal reformatted images were created and reviewed. COMPARISON: No relevant prior studies available. FINDINGS: Lower thorax: Interstitial lung disease at the bilateral lung bases. Fat containing right Bochdalek hernia. Linear atelectasis or scarring in the right middle lobe. ABDOMEN: Liver: Mild hepatomegaly. Gallbladder and bile ducts: Status post cholecystectomy. Pancreas: Normal. No ductal dilation. Spleen: Normal. No splenomegaly. Adrenals: Left adrenal hyperplasia. Kidneys and ureters: Nonspecific bilateral perinephric fat stranding. No hydronephrosis. Stomach and bowel: Extensive diverticulosis of the colon. Focal stranding of the retroperitoneal fat is demonstrated along the proximal descending colon extending into the left perinephric fat. This may represent acute diverticulitis although no obvious inflamed diverticulum is present. Appendix: No evidence of appendicitis. PELVIS: Bladder: Urinary bladder is contracted around Ramirez balloon catheter. Reproductive: Unremarkable as visualized. ABDOMEN and PELVIS: Intraperitoneal space: Status post mesh repair of ventral abdominal wall hernia. 2 discrete hernias along the right lateral margin of the mesh contain omental fat and a segment of greater curvature of the stomach. Bones/joints: Osteopenia. Facet hypertrophy lumbar spine. Severe degenerative disease L5 S1. Vasculature: Atherosclerotic disease. Lymph nodes: Normal. No enlarged lymph nodes. IMPRESSION: Extensive diverticulosis of the colon. Focal stranding of the retroperitoneal fat is demonstrated along the proximal descending colon extending into the left perinephric fat. This may represent acute diverticulitis although no obvious inflamed diverticulum is present. Electronically signed by: Ebenezer Roca On 08/19/2018 01:35:47 AM
[2018-08-19] MEDS ORDERED: BUPR1TAB53 PO ×2 (02:40)
[2018-08-19] MEDS ORDERED: ASPI325T PO (02:40)
[2018-08-19] MEDS ORDERED: SPIR1CAP INH (02:41)
[2018-08-19] MEDS ORDERED: HYDR-3716 PO (02:41)
[2018-08-19] MEDS ORDERED: MECL12.575 PO (02:43)
[2018-08-19] MEDS ORDERED: LORazepam 2 MG/ML VIAL (J2060) IV STA (02:45)
[2018-08-19] MEDS ORDERED: GLUCAGON FOR INJ 1 MG VIAL (J1610) SC PRN (02:45)
[2018-08-19] MEDS ORDERED: DEXTROSE 50% 50 ML SYRINGE IV PRN (02:45)
[2018-08-19] MEDS ORDERED: GLUCOSE 4 GM CHEW TABLET PO PRN (02:45)
[2018-08-19] MEDS: NS 1,000 ML IV SCH ×2 (03:10→16:33)
--- NOTE | 2018-08-19 03:23 | HPEPDOC ---
[facility] Medical History & Physical Date of Admission Aug 19, 2018 Other Provider Dictating/admitting: Yazan Woo M.D. Attending Physician: JUANJOSE HERNÁNDEZ MD History and Physical CHIEF COMPLAINT: Altered mental status HISTORY OF PRESENT ILLNESS: Patient is a 72-year-old woman with diabetes, chronic low back pain, neck pain, GERD, chronic depression, anxiety, history of diverticulitis and diverticulosis, Zenker's diverticulum, hypothyroidism, remote history of numerous tick exposure, tobacco use. The patient was last seen in her usual state of health on Monday morning before her daughter left for work. By evening daughter noticed that her mom was not in her usual state of health. She reports that she was more confused. I reviewed patient's chart and found out she did visit Dr. Pickens on August 15 2018 and she was supposed to have started Macrobid 100 mg twice a day for 7 days. Patient refers dysuria, urinary frequency, subjective fever and chills. No nausea no vomiting. No chest pain, no palpitations, not short of breath. No cough. No recent sick contact. No change in her bowel habits. She was evaluated with labs UA consistent with UTI and a CT abdominopelvic done reveals perinephric fat stranding, which is in keeping with pyelonephritis. Labs also reveals elevated white count. PAST MEDICAL HISTORY: Per HPI PAST SURGICAL HISTORY: 1. Hysterectomy. 2. Appendectomy. 3. . 4. Bladder surgery. 5. Vocal cord surgery. 6. Needlestick injury. 2017. SOCIAL HISTORY: Current smoker, 6-10 sticks of cigarettes per day for the past 14 years. Denies alcohol, denies illicit drug use. FAMILY HISTORY: Father: Father from complications of stomach cancer Mother: diagnosed with [place], CVA Siblings: Alive with cerebral aneurysm, CVA, [place], CAD Children: 3 daughters alive and well. ALLERGIES: Please see below. REVIEW OF SYSTEMS: Patient refers dysuria, urinary frequency, subjective fever and chills. No nausea no vomiting. No chest pain, no palpitations, not short of breath. No cough. No recent sick contact. No change in her bowel habits. Other systems reviewed, negative. 12 point review of system done. HOME MEDICATIONS: Please see below. PHYSICAL EXAMINATION: VITAL SIGNS: Temperature 100.2, pulse 88, respiratory rate 20, blood pressure 109/54, pulse oximetry 94% on room air. GENERAL APPEARANCE: Elderly woman, lying calmly in bed, appears mildly deh ydrated, not in any apparent distress. She is not pale, anicteric and afebrile HEENT: Atraumatic. Neck: Supple. LUNGS: Clear to auscultation bilaterally. CARDIOVASCULAR: S1 and 2 heard, no murmurs, rubs or gallops. ABDOMEN: Obese, soft, CVA tenderness not elicited, not distended. Bowel sounds normoactive. MUSCULOSKELETAL: Apparently within normal limits. EXTREMITIES: No pedal edema, 2+ bilateral pedal pulses noted. NEUROLOGICAL: Now asleep but readily arousable. PSYCHIATRIC: Normal affect LABORATORY DATA: See below. IMAGING: Chest x-ray: No acute process observed. CT brain without contrast: No evidence of bleed, no evidence of mass effect, mild mucosal thickening of the ethmoid sinuses possibly related to sinusitis. CT abdomen and pelvis: Extensive diverticulosis of the colon focal stranding of the retroperitoneal fat is demonstrated along the proximal descending colon extending into the left perinephric fat this very present acute diverticulitis, although no obvious inflamed diverticulum is present. MICROBIOLOGY: Please see below. ASSESSMENT: 72F with altered mental status and fever. UA and Abd-Pelvic imaging consistent with UTI/pyelonephritis. According to review of records, patient should be on Macrobid 100 mg twice a day for recent UTI treatment after recent visit to her primary care provider on 08/15/2018. It is of note that she also uses alprazolam whenever she feels anxious. Altered mental state could have resulted from the use of alprazolam and nitrofurantoin (Confusion is recognized as a side effect, especially in elderly patients) as well as the urinary tract infection itself. I will hold alprazolam and discontinue use of nitrofurantoin. Patient will be treated with IV Rocephin for now. DIAGNOSES: 1. Altered mental status likely drug related, as well as ongoing urinary tract infection. 2. Mild dehydration. 3. Pyelonephritis, after failed outpatient treatment for UTI. . PLAN: 1. I will admit patient to medical floors under care of Dr. Merritt. 2. Would discontinue use of Macrobid and continue with Rocephin 1 g every 24 hours. Follow blood cultures. Follow urine culture. 3. Will continue with IV normal saline to run at 75 mils per hour. Reevaluate volume status and need in the morning. 4. Follow CBC. Follow chemistry 5. Diabetes. Fingerstick blood glucose monitoring with insulin sliding scale and consistent carbohydrate diet. 6. Resume outpatient medications. 7. DVT prophylaxis, TEDs/sequentials. 8. Further management to be per patient's clinical course. Vital Signs Vital Signs Date Time Temp Pulse Resp B/P (MAP) Pulse Ox O2 Delivery O2 Flow Rate FiO2 08/19/18 01:36 100.2 08/19/18 00:46 88 20 94 08/19/18 00:45 109/54 (72) 08/19/18 00:31 Room Air Laboratory Data Labs 24H Laboratory Tests 2 08/18/18 22:24: Immature Granulocyte % (Auto) 0.4, White Blood Count 14.6H, Red Blood Count 4.7 6, Hemoglobin 14.2, Hematocrit 44.0, Mean Corpuscular Volume 92.4, Mean Corpuscular Hemoglobin 29.8, Mean Corpuscular Hemoglobin Concent 32.3, Red Cell Distribution Width 14.3, Platelet Count 212, Neutrophils (%) (Auto) 79.6H, Lymphocytes (%) (Auto) 10.8L, Monocytes (%) (Auto) 8.8H, Eosinophils (%) (Auto) 0.1, Basophils (%) (Auto) 0.3, Neutrophils # (Auto) 11.6H, Lymphocytes # (Auto) 1.6, Monocytes # (Auto) 1.3H, Eosinophils # (Auto) 0.0, Basophils # (Auto) 0.0, Nucleated Red Blood Cells % (auto) 0.0, Urine Appearance HAZY, Urine Color YELLOW, Urine pH 6.0, Urine Specific [place] 1.012, Urine Protein 2+H, Urine Glucose (UA) NEGATIVE, Urine Ketones NEGATIVE, Urine Urobilinogen 0.2, Urine Bilirubin NEGATIVE, Urine Leukocyte Esterase 1+H, Urine Blood 1+H, Urine Nitrite POSITIVE, Urine WBC (Auto) 62H, Urine RBC (Auto) 16H, Urine Hyaline Casts (Auto) 0, Urine Bacteria (Auto) 1+H, Urine Squamous Epithelial Cells 0, Urine Sperm (Auto) , Lactic Acid Level 2.0 08/18/18 23:16: Anion Gap 9, Glomerular Filtration Rate > 60.0, Calcium Level 8.6L, Aspartate Amino Transf (AST/SGOT) 24, Alanine Aminotransferase (ALT/SGPT) 24, Alkaline Phosphatase 76, Total Bilirubin 0.6, Direct Bilirubin 0.2, Total Protein 8.0, Albumin 3.6, Albumin/Globulin Ratio 0.82L, Thyroid Stimulating Hormone (TSH) 0.522, Free Thyroxine Index 4.2, Thyroxine (T4) 13.1H, Triiodothyronine (T3) Uptake 32, Influenza Type A (RT-PCR) NEGATIVE, Influenza Type B (RT-PCR) NEGATIVE CBC/BMP Laboratory Tests 08/18/18 22:24 Red Blood Count 4.76, Mean Corpuscular Volume 92.4, Mean Corpuscular Hemoglobin 29.8, Mean Corpuscular Hemoglobin Concent 32.3, Red Cell Distribution Width 14.3, Neutrophils (%) (Auto) 79.6 H, Lymphocytes (%) (Auto) 10.8 L, Monocytes (%) (Auto) 8.8 H, Eosinophils (%) (Auto) 0.1, Basophils (%) (Auto) 0.3, Neutrophils # (Auto) 11.6 H, Lymphocytes # (Auto) 1.6, Monocytes # (Auto) 1.3 H, Eosinophils # (Auto) 0.0, Basophils # (Auto) 0.0 08/18/18 23:16 Microbiology Microbiology 08/18/18 Blood Culture, Received Pending 08/18/18 Urine Culture, Received Pending Home Medications Scheduled (Calcium + D3 600-200 mg-Unit) 1 Tab Tab, 1 TAB PO BID Aspirin (Aspirin) 325 Mg Tab, 325 MG PO DAILY Bupropion HCl (Bupropion HCl ER) 150 Mg Tab, 150 MG PO QPM Bupropion HCl (Bupropion HCl ER) 150 Mg Tab, 300 MG PO QAM Garlic (Garlique) 400 Mg Tab, 400 MG PO DAILY Lansoprazole (Prevacid) 30 Mg Cap, 30 MG PO DAILY Levothyroxine Sodium (Synthroid) 100 Mcg Tab, 100 MCG PO DAILY Lisinopril (Lisinopril) 5 Mg Tab, 5 MG PO DAILY Metformin Hydrochloride (Metformin HCl) 500 Mg Tab, 500 MG PO BID [place] 3 Polyunsat Fatty Acids (Fish Oil 1000 mg) 1 Cap Cap, 1,000 MG PO BID Ranitidine HCl (Ranitidine HCl) 150 Mg Cap, 1 CAP PO BID Tiotropium [place] Monohydrate (Spiriva Handihaler) 18 Mcg Cap, 1 INHALATION INH DAILY Scheduled PRN Acetaminophen/Hydrocodone (Hydrocodone/Acetaminophen 7.5-325 mg) 1 Tab Tab, 2 TAB PO QID PRN for PAIN Alprazolam (Alprazolam) 2 Mg Tab, 2 MG PO TID PRN for anxiety Meclizine HCl (Meclizine HCl) 12.5 Mg Tab, 12.5 MG PO BID PRN for DIZZINESS Miscellaneous Medications (Daily Chap[place]) 1 Tab Tab, 1 TAB PO Allergies Coded Allergies: Scallop (Unverified Allergy, Unknown, UNKNOWN, 04/07/09) Citalopram (Unverified Adverse Reaction, Unknown, RACING HEART, 10/15/12) YAZAN WOO MD Aug 19, 2018 02:26
[2018-08-19 04:05] VITALS: BP 111/98
[2018-08-19] MEDS: ACETAMINOPHEN TAB 650MG DOSE (2X325MG) PO PRN ×3 (04:31→15:12)
[2018-08-19] MEDS: LEVOTHYROXINE 100MCG TABLET (0.1MG) PO SCH (05:59)
[2018-08-19 07:01] LABS: HEMATOCRIT 35.3 % (36.0-47.0); MEAN CORPUSCULAR HEMOGLOBIN 29.6 pg (27.0-33.0); MEAN CORPUSCULAR HGB CONC 32.3 g/dl (32.0-36.5); MEAN CORPUSCULAR VOLUME 91.7 fl (80.0-96.0); PLATELET COUNT, AUTOMATED 168 10^3/uL (150-450); RED BLOOD COUNT 3.85 10^6/uL (4.00-5.40); WHITE BLOOD COUNT 14.5 10^3/uL (4.0-10.0)
[2018-08-19 07:13] LABS: HEMOGLOBIN 11.4 g/dl (12.0-15.5)
[2018-08-19 07:23] LABS: BLOOD UREA NITROGEN 22 MG/DL (7-18); CALCIUM LEVEL 7.7 MG/DL (8.8-10.2); CARBON DIOXIDE LEVEL 22 MEQ/L (21-32); CHLORIDE LEVEL 107 MEQ/L (98-107); CREATININE FOR GFR 0.85 MG/DL (0.55-1.30); GLOMERULAR FILTRATION RATE > 60.0 (>39); GLUCOSE, FASTING 131 MG/DL (70-100); POTASSIUM SERUM 3.9 MEQ/L (3.5-5.1); SODIUM LEVEL 137 MEQ/L (136-145)
[2018-08-19] MEDS: HumaLOG INSULIN (NovoLOG) PER UNIT SC SCH ×4 (07:30→21:00)
[2018-08-19] MEDS: NICOTINE 21MG/24HR 1 EA TRANSDERMAL TD SCH (09:00)
[2018-08-19] MEDS: buPROPion **XL** TABLET 150MG (WELLBUTRIN XL) PO SCH ×2 (09:01→21:00)
[2018-08-19] MEDS: PANTOPRAZOLE 40MG TAB (PROTONIX) PO SCH (09:01)
[2018-08-19] MEDS: ASPIRIN 325 MG TAB PO SCH (09:01)
[2018-08-19] MEDS: LISINOPRIL 5 MG TAB PO SCH (09:01)
[2018-08-19 14:00] VITALS: BP 144/69
--- NOTE | 2018-08-19 18:57 | IPNPDOC ---
Subjective Date Seen The patient was seen on 08/19/18. Subjective Chief Complaint/HPI remains confused, but not lethargic Constitutional: Reports: Fever Eyes: Denies: Pain Skin: Denies: Rash Pulmonary: Denies: Dyspnea, Cough Cardiovascular: Denies: Chest Pain Gastrointestinal: Denies: Nausea, Vomiting Objective Physical Examination General Exam: Positive: Alert ENT Exam: Positive: Atraumatic Neck Exam: Negative: JVD Chest Exam: Positive: Clear to auscultation Heart Exam: Positive: Tachycardic Abdomen Exam: Positive: Normal bowel sounds Extremity Exam: Negative: Edema Skin Exam: Negative: Rash Assessment /Plan Problems (1) Pyelonephritis Status: Acute Problem Text: D1 ceftriaxone/levo ho recurrent UTI 09/2016 last + UCX: SPEC #: [id number] TAVIA: 09/19/16 STATUS: COMP REQ #: [id number] RECD: 09/19/16 [facility] DR: Marcia Warren MD SOURCE: URINE CC ENTR: [id number]/19/[id number] [facility] DR: Gautam Mojica M.D. SPDESC: COMP: 09/21/16 ORDERED: URINE CULT ----- Procedure Result Site DEPARTMENT OF MICROBIOLOGY ROUTINE CULTURE RESULTS URINE CULTURE Final Organism 1 ESCHERICHIA COLI COLONY COUNT >100,000 CFU/ml FULL REPORT IN LAB NOTES (eCW and Medent). 1. ESCHERICHIA COLI RX Route Dose Cost ----- ----- ------ EXTD BRD SPCTRM BETA LACTAMASE - TRIMETHOPRIM/SULFAMETHOXAZOLE S PO Bactrim DS Bid $0.26 S IV 160mg TMP & 800mg SMXq6h $2.40 AMPICILLIN R PO 500mg q6h fasting $0.60 R IV 500mg q6h $1.40 GENTAMICIN S IV 80mg q8h $0.72 NITROFURANTOIN S PO 100mg BID $2.12 CEFAZOLIN I IV 1gm q8h $2.67 LEVOFLOXACIN S PO 250mg qd $5.75 S PO 500mg qd $6.70 S IV 500mg qd $32.74 TOBRAMYCIN S IV 80mg q8h $6.33 CEFTRIAXONE S IV 1gm q24h $21.28 CEFTAZIDIME S IV 1gm q8h $22.95 AMPICILLIN/SULBACTAM R IV 1.5g q6h $26.96 PIPERACILLIN/TAZOBACTAM S IV 2.25 gm q6h $32.92 AZTREONAM S IV 1gm q8h $38.85 ERTAPENEM S IV 1gm qd MEROPENEM S IV 1 gm q8h $189.6 S IV 500 mg q8h $94.79 TIGECYCLINE S IV 50mg q12h $125.6 * CEFEPIME S IV 1 gm q12h $71.80 S IV 2 gm q12h $124.8 08/19 Tm 08/19 103.1 at 10, WBC 14.5 (14.6), stable BPs 08/18/ BCX P 08/18 UCX P 08/19/18 CT AP: IMPRESSION: Extensive diverticulosis of the colon. Focal stranding of the retroperitoneal fat is demonstrated along the proximal descending colon extending into the left perinephric fat. This may represent acute diverticulitis although no obvious inflamed diverticulum is present. (2) Altered mental state Status: Acute Problem Text: 2 TME, baseline dementia (3) MDD (major depressive disorder) Status: Chronic Response to Treatment: Stable Problem Text: stable on HD buprop (4) Hypertension Status: Chronic Response to Treatment: Stable Problem Text: stable on HD lisin 5 QD (5) Hypothyroid Status: Chronic Response to Treatment: Stable Problem Text: stable on HD LT4 100 (6) DM2 (diabetes mellitus, type 2) Status: Chronic Response to Treatment: Stable Problem Text: baseline good control on met 500 BID, A1C 6.9 stable BG on SSLI (7) COPD (chronic obstructive pulmonary disease) Status: Chronic Problem Text: Stable on HD anitha QD (8) Nicotine use disorder Status: Chronic Problem Text: baseline 2-3 PPD 08/19 + 21 patch to HD bup Plan/VTE VTE Prophylaxis Ordered?: Yes VS, I&O, 24H, Fishbone Vital Signs/I&O Vital Signs Date Time Temp Pulse Resp B/P (MAP) Pulse Ox O2 Delivery O2 Flow Rate FiO2 08/19/18 17:00 99.9 08/19/18 14:00 97 19 144/69 (94) 97 08/19/18 03:16 Room Air I&O- Last 24 Hours up to 6 AM 08/19/18 06:00 Intake Total 1000 ml Output Total 500 ml Balance 500 ml Laboratory Data 24H LABS Laboratory Tests 2 08/18/18 22:24: Immature Granulocyte % (Auto) 0.4, White Blood Count 14.6H, Red Blood Count 4.76, Hemoglobin 14.2, Hematocrit 44.0, Mean Corpuscular Volume 92.4, Mean Corpuscular Hemoglobin 29.8, Mean Corpuscular Hemoglobin Concent 32.3, Red Cell Distribution Width 14.3, Platelet Count 212, Neutrophils (%) (Auto) 79.6H, Lymphocytes (%) (Auto) 10.8L, Monocytes (%) (Auto) 8.8H, Eosinophils (%) (Auto) 0.1, Basophils (%) (Auto) 0.3, Neutrophils # (Auto) 11.6H, Lymphocytes # (Auto) 1.6, Monocytes # (Auto) 1.3H, Eosinophils # (Auto) 0.0, Basophils # (Auto) 0.0, Nucleated Red Blood Cells % (auto) 0.0, Urine Appearance HAZY, Urine Color YELLOW, Urine pH 6.0, Urine Specific [place] 1.012, Urine Protein 2+H, Urine Glucose (UA) NEGATIVE, Urine Ketones NEGATIVE, Urine Urobilinogen 0.2, Urine Bilirubin NEGATIVE, Urine Leukocyte Esterase 1+H, Urine Blood 1+H, Urine Nitrite POSITIVE, Urine WBC (Auto) 62H, Urine RBC (Auto) 16H, Urine Hyaline Casts (Auto) 0, Urine Bacteria (Auto) 1+H, Urine Squamous Epithelial Cells 0, Urine Sperm (Auto) , Lactic Acid Level 2.0 08/18/18 23:16: Anion Gap 9, Glomerular Filtration Rate > 60.0, Calcium Level 8.6L, Aspartate Amino Transf (AST/SGOT) 24, Alanine Aminotransferase (ALT/SGPT) 24, Alkaline Phosphatase 76, Total Bilirubin 0.6, Direct Bilirubin 0.2, Total Protein 8.0, Albumin 3.6, Albumin/Globulin Ratio 0.82L, Thyroid Stimulating Hormone (TSH) 0.522, Free Thyroxine Index 4.2, Thyroxine (T4) 13.1H, Triiodothyronine (T3) Uptake 32, Influenza Type A (RT-PCR) NEGATIVE, Influenza Type B (RT-PCR) NEGATIVE 08/19/18 06:52: Nucleated Red Blood Cells % (auto) 0.0, Anion Gap 8, Glomerular Filtration Rate > 60.0, Calcium Level 7.7L, Blood Urea Nitrogen 22H, Creatinine 0.85, Sodium Level 137, Potassium Level 3.9, Chloride Level 107, Carbon Dioxide Level 22 08/19/18 11:39: Bedside Glucose (Misc Panel) 129H 08/19/18 16:34: Bedside Glucose (Misc Panel) 192H CBC/BMP Laboratory Tests 08/18/18 22:24 Red Blood Count 4.76, Mean Corpuscular Volume 92.4, Mean Corpuscular Hemoglobin 29.8, Mean Corpuscular Hemoglobin Concent 32.3, Red Cell Distribution Width 14.3, Neutrophils (%) (Auto) 79.6 H, Lymphocytes (%) (Auto) 10.8 L, Monocytes (%) (Auto) 8.8 H, Eosinophils (%) (Auto) 0.1, Basophils (%) (Auto) 0.3, Neutrophils # (Auto) 11.6 H, Lymphocytes # (Auto) 1.6, Monocytes # (Auto) 1.3 H, Eosinophils # (Auto) 0.0, Basophils # (Auto) 0.0 08/18/18 23:16 08/19/18 06:52 Red Blood Count 3.85 L, Mean Corpuscular Volume 91.7, Mean Corpuscular Hemoglobin 29.6, Mean Corpuscular Hemoglobin Concent 32.3, Red Cell Distribution Width 14.6 H, Calcium Level 7.7 L Microbiology Microbiology 08/18/18 Blood Culture, Received Pending 08/18/18 Urine Culture, Received Pending Clarence Lal M.D. Aug 19, 2018 18:57
[2018-08-19 20:00] VITALS: BP 194/84
[2018-08-19] MEDS: ACETAMINOPHEN 500 MG TAB PO PRN (20:00)
[2018-08-19] MEDS: LevoFLOXacin IV 750 MG in APPROPRIATE DILUENT 1 EA IV SCH (20:08)
[2018-08-19] MEDS ORDERED: KETOROLAC 30 MG/ML VIAL (J1885) IV PRN (20:30)
[2018-08-19] MEDS: ONDANSETRON 4MG/2ML VIAL (J2405) IV PRN (20:59)
[2018-08-19 21:30] VITALS: BP 172/84
[2018-08-19] MEDS: cefTRIAXone SOD 1 GM in D5W MINI-BAG PLUS 50 ML IV SCH (22:22)
[2018-08-20] MEDS: NS 1,000 ML IV SCH ×2 (01:49→09:49)
[2018-08-20 03:00] VITALS: BP 131/62
[2018-08-20] MEDS: LEVOTHYROXINE 100MCG TABLET (0.1MG) PO SCH (06:27)
[2018-08-20 06:28] VITALS: BP 134/64
[2018-08-20 06:34] LABS: BASO % 0.2 % (0.0-1.0); EOS % 0.1 % (0.0-3.0); HEMATOCRIT 33.2 % (36.0-47.0); HEMOGLOBIN 10.6 g/dl (12.0-15.5); LYMPH # 1.8 10^3/uL (1.5-4.5); LYMPH % 15.5 % (24.0-44.0); MEAN CORPUSCULAR HEMOGLOBIN 30.2 pg (27.0-33.0); MEAN CORPUSCULAR HGB CONC 31.9 g/dl (32.0-36.5); MEAN CORPUSCULAR VOLUME 94.6 fl (80.0-96.0); MONO # 1.3 10^3/uL (0.0-0.8); MONO % 10.6 % (0.0-5.0); NEUTROPHILS # 8.6 10^3/uL (1.8-7.7); PLATELET COUNT, AUTOMATED 130 10^3/uL (150-450); RED BLOOD COUNT 3.51 10^6/uL (4.00-5.40); WHITE BLOOD COUNT 11.8 10^3/uL (4.0-10.0)
[2018-08-20 07:06] LABS: ALBUMIN 2.4 GM/DL (3.2-5.2); ALT/SGPT 26 U/L (12-78); BILIRUBIN,TOTAL 0.3 MG/DL (0.2-1.0); BLOOD UREA NITROGEN 18 MG/DL (7-18); CALCIUM LEVEL 7.3 MG/DL (8.8-10.2); CARBON DIOXIDE LEVEL 24 MEQ/L (21-32); CHLORIDE LEVEL 108 MEQ/L (98-107); CREATININE FOR GFR 0.93 MG/DL (0.55-1.30); GLOMERULAR FILTRATION RATE > 60.0 (>39); GLUCOSE, FASTING 88 MG/DL (70-100); POTASSIUM SERUM 3.7 MEQ/L (3.5-5.1); SODIUM LEVEL 138 MEQ/L (136-145); TOTAL PROTEIN 6.2 GM/DL (6.4-8.2)
[2018-08-20] MEDS: HumaLOG INSULIN (NovoLOG) PER UNIT SC SCH ×4 (07:30→20:28)
[2018-08-20] MEDS: TIOTROPIUM INHALER/CAPSULE (SPIRIVA) INH SCH (08:00)
[2018-08-20 08:35] VITALS: BP 180/78
[2018-08-20] MEDS: NICOTINE 21MG/24HR 1 EA TRANSDERMAL TD SCH (08:45)
[2018-08-20] MEDS: PANTOPRAZOLE 40MG TAB (PROTONIX) PO SCH (08:45)
[2018-08-20] MEDS: buPROPion **XL** TABLET 150MG (WELLBUTRIN XL) PO SCH ×2 (08:45→21:06)
[2018-08-20] MEDS: ASPIRIN 325 MG TAB PO SCH (08:45)
[2018-08-20] MEDS: LISINOPRIL 5 MG TAB PO SCH (08:45)
[2018-08-20] MEDS: ACETAMINOPHEN 500 MG TAB PO PRN ×2 (08:45→17:57)
--- NOTE | 2018-08-20 09:07 | IPNPDOC ---
Subjective Date Seen The patient was seen on 08/20/18. Subjective Chief Complaint/HPI Pt this morning reports that she wasn't able to sleep much overnight. She is coughing, without much sputum production. She reports some SOB since her O2 was discontinued, states that she felt better with the oxygen on. General: Reports: Fatigue Constitutional: Reports: Chills, Fever ENT: Denies: Head Aches Pulmonary: Reports: Dyspnea, Cough Cardiovascular: Denies: Chest Pain, Palpitations Gastrointestinal: Denies: Nausea, Vomiting, Diarrhea Musculoskeletal: Denies: Neck Pain Neurological: Reports: Weakness Psych: Reports: Mood Normal Objective Physical Examination General Exam: Positive: Alert, Mild Distress (shaking chills, not rigors) ENT Exam: Positive: Atraumatic Neck Exam: Negative: JVD Chest Exam: Positive: Clear to auscultation, Diminished; Negative: Rales, Rhonchi, Wheezing Heart Exam: Positive: Tachycardic Abdomen Exam: Positive: Normal bowel sounds, Soft; Negative: Tenderness Extremity Exam: Negative: Edema Skin Exam: Negative: Rash Psych Exam: Positive: Mental status NL, Mood NL Assessment /Plan Problems (1) Pyelonephritis Status: Acute Response to Treatment: Stable, Improving Discussed With: Nurse, Patient Problem Specific Plan: Monitor Clinically Problem Text: 08/20 D1 ceftriaxone/levo, pt remains febrile, Tmax 104.7 overnight, WBC is down today, CRP elevated, will follow trend. Urine culture pending, blood cx x 1 Neg. 08/19 D1 ceftriaxone/levo ho recurrent UTI 09/2016 last + UCX: SPEC #: [id number] TAVIA: 09/19/16 STATUS: COMP REQ #: [id number] RECD: 09/19/16 [facility] DR: Marcia Warren MD SOURCE: URINE CC ENTR: 09/19/16-[address] [facility] [address]: Gautam Mojica M.D. SPDC: COMP: 09/21/1603 ORDERED: URINE CULT Procedure Result Site ------- * DEPARTMENT OF MICROBIOLOGY ROUTINE CULTURE RESULTS URINE CULTURE Final Organism 1 ESCHERICHIA COLI COLONY COUNT >100,000 CFU/ml FULL REPORT IN LAB NOTES (eCW and Medent). 1. ESCHERICHIA COLI RX Route Dose Cost ----- ----- ------ EXTD BRD SPCTRM BETA LACTAMASE - TRIMETHOPRIM/SULFAMETHOXAZOLE S PO Bactrim DS Bid $0.26 S IV 160mg TMP & 800mg SMXq6h $2.40 AMPICILLIN R PO 500mg q6h fasting $0.60 R IV 500mg q6h $1.40 GENTAMICIN S IV 80mg q8h $0.72 NITROFURANTOIN S PO 100mg BID $2.12 CEFAZOLIN I IV 1gm q8h $2.67 LEVOFLOXACIN S PO 250mg qd $5.75 S PO 500mg qd $6.70 S IV 500mg qd $32.74 TOBRAMYCIN S IV 80mg q8h $6.33 CEFTRIAXONE S IV 1gm q24h $21.28 CEFTAZIDIME S IV 1gm q8h $22.95 AMPICILLIN/SULBACTAM R IV 1.5g q6h $26.96 PIPERACILLIN/TAZOBACTAM S IV 2.25 gm q6h $32.92 AZTREONAM S IV 1gm q8h $38.85 ERTAPENEM S IV 1gm qd MEROPENEM S IV 1 gm q8h $189.6 S IV 500 mg q8h $94.79 TIGECYCLINE S IV 50mg q12h $125.6 * CEFEPIME S IV 1 gm q12h $71.80 S IV 2 gm q12h $124.8 ------- 08/19 Tm 08/19 103.1 at 10, WBC 14.5 (14.6), stable BPs 08/18/ BCX P 08/18 UCX P 08/19/18 CT AP: IMPRESSION: Extensive diverticulosis of the colon. Focal stranding of the retroperitoneal fat is demonstrated along the proximal descending colon extending into the left perinephric fat. This may represent acute diverticulitis although no obvious inflamed diverticulum is present. (2) Altered mental state Status: Resolved Response to Treatment: Improving Discussed With: Nurse, Patient Problem Specific Plan: Monitor Clinically Problem Text: 2 TME, baseline dementia (3) MDD (major depressive disorder) Status: Chronic Response to Treatment: Stable Problem Specific Plan: Monitor Clinically Problem Text: stable on HD buprop (4) Hypertension Status: Chronic Response to Treatment: Stable Problem Text: stable on HD lisin 5 QD (5) Hypothyroid Status: Chronic Response to Treatment: Stable Problem Text: stable on HD LT4 100 (6) DM2 (diabetes mellitus, type 2) Status: Chronic Response to Treatment: Stable Problem Text: baseline good control on met 500 BID, A1C 6.9 stable BG on SSLI (7) COPD (chronic obstructive pulmonary disease) Status: Chronic Problem Text: Stable on HD Spiriva QD (8) Nicotine use disorder Status: Chronic Problem Text: baseline 2-3 PPD 08/19 + 21 patch to HD bup Plan/VTE VTE Prophylaxis Ordered?: Yes Plan Family Medicine Attending Note: I saw and examined Ms. Alexandre, discussed with SUDARSHAN Rios. Agree with her note as documented. When I saw the patient later in the day she was communicating fairly well. Her urine has also cleared up and was quite light. Nursing confirmed she was taking oral fluids well, so I stopped her IV fluids. Regarding her anxiety medications I found that her home regimen includes 1 mg of Xanax 4 times a day. I did not want to put her on medication that sedates her, but I'm also cautious of allowing her to withdraw. I started her on 0.5 mg of Xanax every 6 hours when necessary. I anticipate that her urine culture may be back sometime tomorrow at which point we would start her on oral medications. Anticipated discharge in roughly 2 days. (integrated specialist) VS, I&O, 24H, Fishbone Vital Signs/I&O Vital Signs Date Time Temp Pulse Resp B/P (MAP) Pulse Ox O2 Delivery O2 Flow Rate FiO2 08/20/18 08:45 180/78 08/20/18 08:35 102.5 128 22 94 1.0 08/19/18 03:16 Room Air I&O- Last 24 Hours up to 6 AM 08/20/18 06:00 Intake Total 1160 ml Output Total 550 ml Balance 610 ml Laboratory Data 24H LABS Laboratory Tests 2 08/19/18 11:39: Bedside Glucose (Misc Panel) 129H 08/19/18 16:34: Bedside Glucose (Misc Panel) 192H 08/19/18 19:54: Bedside Glucose (Misc Panel) 95 08/20/18 06:14: Immature Granulocyte % (Auto) 0.6, White Blood Count 11.8H, Red Blood Count 3.51L, Hemoglobin 10.6L, Hematocrit 33.2L, Mean Corpuscular Volume 94.6, Mean Corpuscular Hemoglobin 30.2, Mean Corpuscular Hemoglobin Concent 31.9L, Red Cell Distribution Width 14.5, Platelet Count 130L, Neutrophils (%) (Auto) 73.0H, Lymp hocytes (%) (Auto) 15.5L, Monocytes (%) (Auto) 10.6H, Eosinophils (%) (Auto) 0.1, Basophils (%) (Auto) 0.2, Neutrophils # (Auto) 8.6H, Lymphocytes # (Auto) 1.8, Monocytes # (Auto) 1.3H, Eosinophils # (Auto) 0.0, Basophils # (Auto) 0.0, Nucleated Red Blood Cells % (auto) 0.0, Anion Gap 6L, Glomerular Filtration Rate > 60.0, Blood Urea Nitrogen 18, Creatinine 0.93, Sodium Level 138, Potassium Level 3.7, Chloride Level 108H, Carbon Dioxide Level 24, Calcium Level 7.3L, Aspartate Amino Transf (AST/SGOT) 33, Alanine Aminotransferase (ALT/SGPT) 26, Alkaline Phosphatase 60, Total Bilirubin 0.3, Total Protein 6.2#L, Albumin 2.4#L, C-Reactive Protein, Quantitative 23.40H, Albumin/Globulin Ratio 0.63L CBC/BMP Laboratory Tests 08/20/18 06:14 Red Blood Count 3.51 L, Mean Corpuscular Volume 94.6, Mean Corpuscular Hemoglobin 30.2, Mean Corpuscular Hemoglobin Concent 31.9 L, Red Cell Distribution Width 14.5, Neutrophils (%) (Auto) 73.0 H, Lymphocytes (%) (Auto) 15.5 L, Monocytes (%) (Auto) 10.6 H, Eosinophils (%) (Auto) 0.1, Basophils (%) (Auto) 0.2, Neutrophils # (Auto) 8.6 H, Lymphocytes # (Auto) 1.8, Monocytes # (Auto) 1.3 H, Eosinophils # (Auto) 0.0, Basophils # (Auto) 0.0, Calcium Level 7.3 L, Aspartate Amino Transf (AST/SGOT) 33, Alanine Aminotransferase (ALT/SGPT) 26, Alkaline Phosphatase 60, Total Bilirubin 0.3, Total Protein 6.2 #L, Albumin 2.4 #L Microbiology Microbiology 08/18/18 Blood Culture - Preliminary, Resulted No growth after 24 hours . All specim... 08/18/18 Urine Culture, Received Pending ERNIE HOU PA-C Aug 20, 2018 09:07 Gwyn Merritt MD Aug 20, 2018 20:02
--- NOTE | 2018-08-20 11:35 | REP ---
CHEST, SINGLE VIEW: Single view of the chest is performed and compared with prior study of 12/19/2013. There is fibrotic scarring again seen in the apices. No acute infiltrate is seen. Heart is normal in size. There is calcification of the thoracic aorta. Mediastinal silhouette is unchanged. IMPRESSION: No acute infiltrate. Electronically Signed by Andrew Mccall MD 08/20/2018 10:56 P
[2018-08-20 14:00] VITALS: BP 165/74
--- NOTE | 2018-08-20 14:29 | REP ---
CHEST, TWO VIEWS: Two views of the chest are performed and compared to prior studies, most recently, 08/18/2017. There is no evidence of acute infiltrate. There is biapical scarring again noted. The heart is normal in size. There is calcification of the thoracic aorta. The mediastinal silhouette is unchanged. There are degenerative changes of the spine. IMPRESSION: No acute pulmonary disease. Electronically Signed by Andrew Mccall MD 08/20/2018 11:45 P
[2018-08-20] MEDS: LevoFLOXacin IV 750 MG in APPROPRIATE DILUENT 1 EA IV SCH (18:01)
[2018-08-20] MEDS: cefTRIAXone SOD 1 GM in D5W MINI-BAG PLUS 50 ML IV SCH (21:06)
[2018-08-20 22:00] VITALS: BP 161/70
[2018-08-21] MEDS: ONDANSETRON 4MG/2ML VIAL (J2405) IV PRN (01:58)
[2018-08-21 04:05] VITALS: BP 220/96
[2018-08-21] MEDS: ACETAMINOPHEN 500 MG TAB PO PRN ×2 (04:34→21:17)
[2018-08-21] MEDS: ALPRAZolam 0.5 MG TAB PO PRN ×2 (04:34→21:18)
[2018-08-21] MEDS: raNITIdine SYRUP 150 MG/10 ML UDC PO PRN ×2 (05:23→18:50)
[2018-08-21 06:00] VITALS: BP 154/68
[2018-08-21] MEDS: LEVOTHYROXINE 100MCG TABLET (0.1MG) PO SCH (06:04)
[2018-08-21 07:03] LABS: BASO % 0.2 % (0.0-1.0); EOS % 0.2 % (0.0-3.0); HEMATOCRIT 33.7 % (36.0-47.0); HEMOGLOBIN 10.8 g/dl (12.0-15.5); LYMPH # 1.8 10^3/uL (1.5-4.5); LYMPH % 18.9 % (24.0-44.0); MEAN CORPUSCULAR HEMOGLOBIN 29.8 pg (27.0-33.0); MEAN CORPUSCULAR VOLUME 92.8 fl (80.0-96.0); MONO # 1.1 10^3/uL (0.0-0.8); MONO % 11.7 % (0.0-5.0); NEUTROPHILS # 6.5 10^3/uL (1.8-7.7); NEUTROPHILS % 68.5 % (36.0-66.0); PLATELET COUNT, AUTOMATED 160 10^3/uL (150-450); RED BLOOD COUNT 3.63 10^6/uL (4.00-5.40); WHITE BLOOD COUNT 9.5 10^3/uL (4.0-10.0)
[2018-08-21 07:43] LABS: ALBUMIN 2.7 GM/DL (3.2-5.2); ALT/SGPT 35 U/L (12-78); BILIRUBIN,TOTAL 0.3 MG/DL (0.2-1.0); BLOOD UREA NITROGEN 12 MG/DL (7-18); CALCIUM LEVEL 8.3 MG/DL (8.8-10.2); CARBON DIOXIDE LEVEL 23 MEQ/L (21-32); CHLORIDE LEVEL 108 MEQ/L (98-107); CREATININE FOR GFR 0.75 MG/DL (0.55-1.30); GLOMERULAR FILTRATION RATE > 60.0 (>39); GLUCOSE, FASTING 140 MG/DL (70-100); POTASSIUM SERUM 3.6 MEQ/L (3.5-5.1); SODIUM LEVEL 139 MEQ/L (136-145); TOTAL PROTEIN 6.8 GM/DL (6.4-8.2)
[2018-08-21] MEDS: ASPIRIN 325 MG TAB PO SCH (08:22)
[2018-08-21] MEDS: buPROPion **XL** TABLET 150MG (WELLBUTRIN XL) PO SCH ×2 (08:22→21:17)
[2018-08-21] MEDS: PANTOPRAZOLE 40MG TAB (PROTONIX) PO SCH (08:22)
[2018-08-21] MEDS: NICOTINE 21MG/24HR 1 EA TRANSDERMAL TD SCH (08:23)
[2018-08-21] MEDS: LISINOPRIL 5 MG TAB PO SCH (08:23)
[2018-08-21] MEDS: HumaLOG INSULIN (NovoLOG) PER UNIT SC SCH ×4 (08:26→21:00)
--- NOTE | 2018-08-21 11:35 | IPNPDOC ---
Subjective Date Seen The patient was seen on 08/21/18. Subjective Chief Complaint/HPI Pt this morning without new concerns. Denies SOB, still has slight cough. Temp overnight. Nursing at bedside without new concerns. General: Denies: Fatigue Constitutional: Denies: Chills, Fever Pulmonary: Reports: Cough; Denies: Dyspnea Cardiovascular: Denies: Chest Pain, Palpitations Gastrointestinal: Denies: Nausea, Vomiting, Diarrhea Psych: Reports: Mood Normal Objective Physical Examination General Exam: Positive: Alert, No Acute Distress ENT Exam: Positive: Atraumatic Neck Exam: Negative: JVD Chest Exam: Positive: Clear to auscultation, Diminished; Negative: Rales, Rhonchi, Wheezing Heart Exam: Positive: Rate Normal Abdomen Exam: Positive: Normal bowel sounds, Soft; Negative: Tenderness Extremity Exam: Negative: Edema Skin Exam: Negative: Rash Psych Exam: Positive: Mental status NL, Mood NL Assessment /Plan Problems (1) Pyelonephritis Status: Acute Response to Treatment: Stable, Improving Discussed With: Nurse, Patient Problem Specific Plan: Monitor Clinically Problem Text: 08/21 D3 ceftriaxone/levo, Tmax 102.7, WBC cont to trend down, monitor. Cx + E coli, sensitive to both, will d/c Rocephin. 08/20 D2 ceftriaxone/levo, pt remains febrile, Tmax 104.7 overnight, WBC is down today, CRP elevated, will follow trend. Urine culture pending, blood cx x 1 Neg. 08/19 D1 ceftriaxone/levo ho recurrent UTI 09/2016 last + UCX: SPEC #: [id number] TAVIA: 09/19/16120 STATUS: COMP REQ #: [id number] RECD: 09/19/[address] [facility] [address]: Marcia Warren MD SOURCE: URINE CC ENTR: 09/19/16-[address] [facility] [address]: Gautam Mojica M.D. SPDESC: COMP: 09/21/160703 ORDERED: URINE CULT ------ Procedure Result Site DEPARTMENT OF MICROBIOLOGY ROUTINE CULTURE RESULTS URINE CULTURE Final Organism 1 ESCHERICHIA COLI COLONY COUNT >100,000 CFU/ml FULL REPORT IN LAB NOTES (eCW and Medent). 1. ESCHERICHIA COLI RX Route Dose Cost ----- ----- ------ EXTD BRD SPCTRM BETA LACTAMASE - TRIMETHOPRIM/SULFAMETHOXAZOLE S PO Bactrim DS Bid $0.26 S IV 160mg TMP & 800mg SMXq6h $2.40 AMPICILLIN R PO 500mg q6h fasting $0.60 R IV 500mg q6h $1.40 GENTAMICIN S IV 80mg q8h $0.72 NITROFURANTOIN S PO 100mg BID $2.12 CEFAZOLIN I IV 1gm q8h $2.67 LEVOFLOXACIN S PO 250mg qd $5.75 S PO 500mg qd $6.70 S IV 500mg qd $32.74 TOBRAMYCIN S IV 80mg q8h $6.33 CEFTRIAXONE S IV 1gm q24h $21.28 CEFTAZIDIME S IV 1gm q8h $22.95 AMPICILLIN/SULBACTAM R IV 1.5g q6h $26.96 PIPERACILLIN/TAZOBACTAM S IV 2.25 gm q6h $32.92 AZTREONAM S IV 1gm q8h $38.85 ERTAPENEM S IV 1gm qd MEROPENEM S IV 1 gm q8h $189.6 S IV 500 mg q8h $94.79 TIGECYCLINE S IV 50mg q12h $125.6 * CEFEPIME S IV 1 gm q12h $71.80 S IV 2 gm q12h $124.8 08/19 Tm 08/19 103.1 at 10, WBC 14.5 (14.6), stable BPs 08/18/ BCX P 08/18 UCX P 08/19/18 CT AP: IMPRESSION: Extensive diverticulosis of the colon. Focal stranding of the retroperitoneal fat is demonstrated along the proximal descending colon extending into the left perinephric fat. This may represent acute diverticulitis although no obvious inflamed diverticulum is present. (2) Physical debility Discussed With: Nurse, Patient, Family with Pt Consent Problem Text: Per physical therapy the patient will probably require 2 weeks of therapy in order to recover to her previous level of function. (3) Altered mental state Status: Resolved Response to Treatment: Improving Discussed With: Nurse, Patient Problem Specific Plan: Monitor Clinically Problem Text: 2 TME, baseline dementia (4) MDD (major depressive disorder) Status: Chronic Response to Treatment: Stable Problem Specific Plan: Monitor Clinically Problem Text: stable on HD buprop (5) Hypertension Status: Chronic Response to Treatment: Stable Problem Text: stable on HD lisin 5 QD (6) Hypothyroid Status: Chronic Response to Treatment: Stable Problem Text: stable on HD LT4 100 (7) DM2 (diabetes mellitus, type 2) Status: Chronic Response to Treatment: Stable Problem Text: baseline good control on met 500 BID, A1C 6.9 stable BG on SSLI (8) COPD (chronic obstructive pulmonary disease) Status: Chronic Problem Text: Stable on HD Spiriva QD (9) Nicotine use disorder Status: Chronic Problem Text: baseline 2-3 PPD 08/19 + 21 patch to HD bup (10) Metabolic encephalopathy Status: Resolved Response to Treatment: Stable Problem Specific Plan: Monitor Clinically Problem Text: due to acute pyelo Plan/VTE VTE Prophylaxis Ordered?: Yes Plan Family Medicine Attending Note: I saw and examined Ms. Alexandre, discussed with SUDARSHAN Rios. Agree with her note as documented. The patient seems to doing well on her current regimen. She does continue to spike fevers, but I ex plained to her and the family fevers are not dangerous unless they're extremely high, they only to keep that there something we need to look for. In this case we know she has an infection and we also know the antibiotics were giving her treating it. I anticipate change her to oral levofloxacin starting tomorrow. At that point time I think we will be through with medical management. Per therapies note she will likely need to be changed to SNF status so she can regain her previous level of function. 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) VS, I&O, 24H, Fishbone Vital Signs/I&O Vital Signs Date Time Temp Pulse Resp B/P (MAP) Pulse Ox O2 Delivery O2 Flow Rate FiO2 08/21/18 09:00 1.0 08/21/18 08:23 154/68 08/21/18 06:00 98.3 95 20 97 08/19/18 03:16 Room Air I&O- Last 24 Hours up to 6 AM 08/21/18 06:00 Intake Total 3710 ml Output Total 4175 ml Balance -465 ml Laboratory Data 24H LABS Laboratory Tests 2 08/20/18 16:36: Bedside Glucose (Misc Panel) 143H 08/20/18 20:24: Bedside Glucose (Misc Panel) 142H 08/21/18 06:35: Immature Granulocyte % (Auto) 0.5, White Blood Count 9.5, Red Blood Count 3.63L, Hemoglobin 10.8L, Hematocrit 33.7L, Mean Corpuscular Volume 92.8, Mean Corpuscular Hemoglobin 29.8, Mean Corpuscular Hemoglobin Concent 32.0, Red Cell Distribution Width 14.4, Platelet Count 160, Neutrophils (%) (Auto) 68.5H, Lymphocytes (%) (Auto) 18.9L, Monocytes (%) (Auto) 11.7H, Eosinophils (%) (Auto) 0.2, Basophils (%) (Auto) 0.2, Neutrophils # (Auto) 6.5, Lymphocytes # (Auto) 1.8, Monocytes # (Auto) 1.1H, Eosinophils # (Auto) 0.0, Basophils # (Auto) 0.0, Nucleated Red Blood Cells % (auto) 0.0, Anion Gap 8, Glomerular Filtration Rate > 60.0, Blood Urea Nitrogen 12, Creatinine 0.75, Sodium Level 139, Potassium Level 3.6, Chloride Level 108H, Carbon Dioxide Level 23, Calcium Level 8.3L, As partate Amino Transf (AST/SGOT) 36, Alanine Aminotransferase (ALT/SGPT) 35, Alkaline Phosphatase 79, Total Bilirubin 0.3, Total Protein 6.8, Albumin 2.7L, C-Reactive Protein, Quantitative 19.40H, Albumin/Globulin Ratio 0.66L CBC/BMP Laboratory Tests 08/21/18 06:35 Red Blood Count 3.63 L, Mean Corpuscular Volume 92.8, Mean Corpuscular Hemoglobin 29.8, Mean Corpuscular Hemoglobin Concent 32.0, Red Cell Distribution Width 14.4, Neutrophils (%) (Auto) 68.5 H, Lymphocytes (%) (Auto) 18.9 L, Monocytes (%) (Auto) 11.7 H, Eosinophils (%) (Auto) 0.2, Basophils (%) (Auto) 0.2, Neutrophils # (Auto) 6.5, Lymphocytes # (Auto) 1.8, Monocytes # (Auto) 1.1 H, Eosinophils # (Auto) 0.0, Basophils # (Auto) 0.0, Calcium Level 8.3 L, Aspartate Amino Transf (AST/SGOT) 36, Alanine Aminotransferase (ALT/SGPT) 35, Alkaline Phosphatase 79, Total Bilirubin 0.3, Total Protein 6.8, Albumin 2.7 L Microbiology Microbiology 08/18/18 Blood Culture - Preliminary, Resulted No Growth after 48 hours. All Specime... 08/18/18 Urine Culture - Final, Complete Escherichia Coli ERNIE HOU PA-C Aug 21, 2018 11:35 am Gwyn Merritt MD Aug 21, 2018 8:03 pm
[2018-08-21 15:00] VITALS: BP 138/70
[2018-08-21 18:00] VITALS: BP 170/80
[2018-08-21] MEDS: LevoFLOXacin IV 750 MG in APPROPRIATE DILUENT 1 EA IV SCH (18:10)
[2018-08-21 20:00] VITALS: BP_SYST 125; BP_SYST 148; BP_DIAS 52; BP_DIAS 60
[2018-08-21] MEDS: LISINOPRIL 10 MG TAB PO SCH (21:18)
[2018-08-22] MEDS: LEVOTHYROXINE 100MCG TABLET (0.1MG) PO SCH (05:28)
[2018-08-22 06:10] VITALS: BP 168/80
[2018-08-22] MEDS: HumaLOG INSULIN (NovoLOG) PER UNIT SC SCH ×4 (07:30→21:19)
[2018-08-22 07:34] LABS: BASO % 0.4 % (0.0-1.0); EOS # 0.1 10^3/uL (0.0-0.50); EOS % 1.4 % (0.0-3.0); HEMATOCRIT 34.9 % (36.0-47.0); HEMOGLOBIN 11.5 g/dl (12.0-15.5); LYMPH % 26.4 % (24.0-44.0); MEAN CORPUSCULAR HEMOGLOBIN 29.9 pg (27.0-33.0); MEAN CORPUSCULAR VOLUME 90.9 fl (80.0-96.0); MONO # 1.1 10^3/uL (0.0-0.8); NEUTROPHILS # 4.4 10^3/uL (1.8-7.7); NEUTROPHILS % 57.4 % (36.0-66.0); PLATELET COUNT, AUTOMATED 193 10^3/uL (150-450); RED BLOOD COUNT 3.84 10^6/uL (4.00-5.40); WHITE BLOOD COUNT 7.7 10^3/uL (4.0-10.0)
[2018-08-22 07:59] LABS: ALBUMIN 2.8 GM/DL (3.2-5.2); ALT/SGPT 34 U/L (12-78); BILIRUBIN,TOTAL 0.3 MG/DL (0.2-1.0); BLOOD UREA NITROGEN 17 MG/DL (7-18); CALCIUM LEVEL 8.2 MG/DL (8.8-10.2); CARBON DIOXIDE LEVEL 26 MEQ/L (21-32); CHLORIDE LEVEL 108 MEQ/L (98-107); CREATININE FOR GFR 0.73 MG/DL (0.55-1.30); GLOMERULAR FILTRATION RATE > 60.0 (>39); GLUCOSE, FASTING 100 MG/DL (70-100); POTASSIUM SERUM 3.7 MEQ/L (3.5-5.1); SODIUM LEVEL 142 MEQ/L (136-145); TOTAL PROTEIN 6.5 GM/DL (6.4-8.2)
--- NOTE | 2018-08-22 08:00 | IPNPDOC ---
Subjective Date Seen The patient was seen on 08/22/18. Subjective Chief Complaint/HPI Patient was pleasant and lying comfortably in bed as I entered the room Constitutional: Denies: Chills, Fever Pulmonary: Reports: Cough; Denies: Dyspnea, Pleuritic Chest Pain Cardiovascular: Denies: Chest Pain, Palpitations, Orthopnea Gastrointestinal: Denies: Nausea, Vomiting, Abdominal Pain Psych: Reports: Mood Normal Objective Physical Examination General Exam: Positive: Alert, No Acute Distress ENT Exam: Positive: Atraumatic Neck Exam: Negative: JVD Chest Exam: Positive: Clear to auscultation, Diminished; Negative: Rales, Rhonchi, Wheezing Heart Exam: Positive: Rate Normal Abdomen Exam: Positive: Normal bowel sounds, Soft; Negative: Tenderness Extremity Exam: Negative: Edema Skin Exam: Negative: Rash Psych Exam: Positive: Mental status NL, Mood NL Assessment /Plan Problems (1) Pyelonephritis Status: Acute Response to Treatment: Stable, Improving Discussed With: Nurse, Patient Problem Specific Plan: Monitor Clinically Problem Text: 08/22/18: Patient on Levaquin 750 mg po. WBC 7.7. CRP 11.4. 08/21 D3 ceftriaxone/levo, Tmax 102.7, WBC cont to trend down, monitor. Cx + E coli, sensitive to both, will d/c Rocephin. 08/20 D2 ceftriaxone/levo, pt remains febrile, Tmax 104.7 overnight, WBC is down today, CRP elevated, will follow trend. Urine culture pending, blood cx x 1 Neg. 08/19 D1 ceftriaxone/levo ho recurrent UTI 09/2016 last + UCX: SPEC #: [id number] TAVIA: 09/19/16 STATUS: COMP REQ #: [id number] RECD: 09/19/16-1621 [facility] DR: Marcia Warren MD SOURCE: URINE CC ENTR: 09/19/16-1154 [facility] DR: Gautam Mojica M.D. [facility]: COMP: 09/21/160703 ORDERED: URINE CULT Procedure Result Site DEPARTMENT OF MICROBIOLOGY ROUTINE CULTURE RESULTS URINE CULTURE Final Organism 1 ESCHERICHIA COLI COLONY COUNT >100,000 CFU/ml FULL REPORT IN LAB NOTES (eCW and Medent). 1. ESCHERICHIA COLI RX Route Dose Cost ----- ----- ------ EXTD BRD SPCTRM BETA LACTAMASE - TRIMETHOPRIM/SULFAMETHOXAZOLE S PO Bactrim DS Bid $0 .26 S IV 160mg TMP & 800mg SMXq6h $2.40 AMPICILLIN R PO 500mg q6h fasting $0.60 R IV 500mg q6h $1.40 GENTAMICIN S IV 80mg q8h $0.72 NITROFURANTOIN S PO 100mg BID $2.12 CEFAZOLIN I IV 1gm q8h $2.6 7 LEVOFLOXACIN S PO 250mg qd $5.75 S PO 500mg qd $6.70 S IV 500mg qd $32.74 TOBRAMYCIN S IV 80mg q8h $6.33 CEFTRIAXONE S IV 1gm q24h $21.28 CEFTAZIDIME S IV 1gm q8h $22.95 AMPICILLIN/SULBACTAM R IV 1.5g q6h $26.96 PIPERACILLIN/TAZOBACTAM S IV 2.25 gm q6h $32.92 AZTREONAM S IV 1gm q8h $38.85 ERTAPENEM S IV 1gm qd MEROPENEM S IV 1 gm q8h $189.6 S IV 500 mg q8h $94.79 TIGECYCLINE S IV 50mg q12h $125.6 * CEFEPIME S IV 1 gm q12h $71.80 S IV 2 gm q12h $124.8 08/19 Tm 08/19 103.1 at 10, WBC 14.5 (14.6), stable BPs 08/18/ BCX P 08/18 UCX P 08/19/18 CT AP: IMPRESSION: Extensive diverticulosis of the colon. Focal stranding of the retroperitoneal fat is demonstrated along the proximal descending colon extending into the left perinephric fat. This may represent acute diverticulitis although no obvious inflamed diverticulum is present. (2) Physical debility Discussed With: Nurse, Patient, Family with Pt Consent Problem Text: 08/22/18: PT isabella yesterday. They will work with her today Per physical therapy the patient will probably require 2 weeks of therapy in order to recover to her previous level of function. (3) Altered mental state Status: Resolved Response to Treatment: Improving Discussed With: Nurse, Patient Problem Specific Plan: Monitor Clinically Problem Text: 08/22/18: Alert to time and place this morning 2 TME, baseline dementia (4) MDD (major depressive disorder) Status: Chronic Response to Treatment: Stable Problem Specific Plan: Monitor Clinically Problem Text: stable on HD buprop (5) Hypertension Status: Chronic Response to Treatment: Stable Problem Text: stable on HD lisin 5 QD (6) Hypothyroid Status: Chronic Response to Treatment: Stable Problem Text: stable on HD LT4 100 (7) DM2 (diabetes mellitus, type 2) Status: Chronic Response to Treatment: Stable Problem Text: baseline good control on met 500 BID, A1C 6.9 stable BG on SSLI (8) COPD (chronic obstructive pulmonary disease) Status: Chronic Problem Text: 08/22/18: Chest x-ray on 08/20/18: No acute pulmonary disease. Stable on HD Spiriva QD (9) Nicotine use disorder Status: Chronic Problem Text: baseline 2-3 PPD 08/19 + 21 patch to HD bup (10) Metabolic encephalopathy Status: Resolved Response to Treatment: Stable Problem Specific Plan: Monitor Clinically Problem Text: due to acute pyelo Plan/VTE VTE Prophylaxis Ordered?: Yes Plan Family Medicine Attending Note: I saw and examined Ms. Alexandre, discussed with Isabel Teixeira, DNP agree with her note as documented. Ms. Alexandre is doing well clinically and no longer needs acute medical supervision. Unfortunately, she is not strong enough to return home at this time. I will make her ALC for sub-acute rehab today. Per therapy's note yesterday, about 10 days of P/T are needed to get her back to her PLOF. 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) VS, I&O, 24H, Fishbone Vital Signs/I&O Vital Signs Date Time Temp Pulse Resp B/P (MAP) Pulse Ox O2 Delivery O2 Flow Rate FiO2 08/22/18 06:10 97.8 168/80 (109) 08/21/18 20:00 89 18 98 08/21/18 09:00 1.0 08/19/18 03:16 Room Air I&O- Last 24 Hours up to 6 AM 08/22/18 06:00 Intake Total 960 ml Output Total 1300 ml Balance -340 ml Laboratory Data 24H LABS Laboratory Tests 2 08/21/18 12:06: Bedside Glucose (Misc Panel) 98 08/21/18 17:51: Bedside Glucose (Misc Panel) 126H 08/22/18 07:14: Immature Granulocyte % (Auto) 0.4, White Blood Count 7.7, Red Blood Count 3.84L, Hemoglobin 11.5L, Hematocrit 34.9L, Mean Corpuscular Volume 90.9, Mean Corpuscular Hemoglobin 29.9, Mean Corpuscular Hemoglobin Concent 33.0, Red Cell Distribution Width 14.6H, Platelet Count 193, Neutrophils (%) (Auto) 57.4, Lymphocytes (%) (Auto) 26.4, Monocytes (%) (Auto) 14.0H, Eosinophils (%) (Auto) 1.4, Basophils (%) (Auto) 0.4, Neutrophils # (Auto) 4.4, Lymphocytes # (Auto) 2.0, Monocytes # (Auto) 1.1H, Eosinophils # (Auto) 0.1, Basophils # (Auto) 0.0, Nucleated Red Blood Cells % (auto) 0.0 CBC/BMP Laboratory Tests 08/22/18 07:14 Red Blood Count 3.84 L, Mean Corpuscular Volume 90.9, Mean Corpuscular Hemoglobin 29.9, Mean Corpuscular Hemoglobin Concent 33.0, Red Cell Distribution Width 14.6 H, Neutrophils (%) (Auto) 57.4, Lymphocytes (%) (Auto) 26.4, Monocytes (%) (Auto) 14.0 H, Eosinophils (%) (Auto) 1.4, Basophils (%) (Auto) 0.4, Neutrophils # (Auto) 4.4, Lymphocytes # (Auto) 2.0, Monocytes # (Auto) 1.1 H, Eosinophils # (Auto) 0.1, Basophils # (Auto) 0.0 Microbiology Microbiology 08/18/18 Blood Culture - Preliminary, Resulted No Growth after 72 hours. All specime... 08/18/18 Urine Culture - Final, Complete Escherichia Coli ISABEL TEIXEIRA Aug 22, 2018 8:00 am Gwyn Merritt MD Aug 22, 2018 7:44 pm
[2018-08-22] MEDS: buPROPion **XL** TABLET 150MG (WELLBUTRIN XL) PO SCH ×2 (09:13→21:18)
[2018-08-22] MEDS: ASPIRIN 325 MG TAB PO SCH (09:13)
[2018-08-22] MEDS: NICOTINE 21MG/24HR 1 EA TRANSDERMAL TD SCH (09:14)
[2018-08-22] MEDS: PANTOPRAZOLE 40MG TAB (PROTONIX) PO SCH (09:14)
[2018-08-22] MEDS: ACETAMINOPHEN 500 MG TAB PO PRN (09:15)
[2018-08-22] MEDS: LISINOPRIL 10 MG TAB PO SCH ×2 (09:15→21:19)
[2018-08-22] MEDS: TIOTROPIUM INHALER/CAPSULE (SPIRIVA) INH SCH ×2 (10:05→10:07)
[2018-08-22] MEDS: MECLIZINE 12.5 MG TAB PO PRN (17:43)
[2018-08-22] MEDS: metFORMIN (GLUCOPHAGE) 500 MG TAB PO SCH (17:43)
[2018-08-22] MEDS ORDERED: LevoFLOXacin 750 MG TABLET PO SCH (18:00)
[2018-08-22 20:00] VITALS: BP 167/113
[2018-08-22] MEDS: ALPRAZolam 0.5 MG TAB PO PRN (21:18)
[2018-08-22] MEDS: NORCO, ANEXSIA 5/325MG TABLET (HYDROcodone/ACETAMINOPHEN) PO PRN (21:52)
[2018-08-22 22:00] VITALS: BP_SYST 114; BP_SYST 6; BP_DIAS 66
[2018-08-23] MEDS: ALPRAZolam 0.5 MG TAB PO PRN ×2 (05:29→12:42)
[2018-08-23] MEDS: LEVOTHYROXINE 100MCG TABLET (0.1MG) PO SCH (05:29)
[2018-08-23] MEDS: MECLIZINE 12.5 MG TAB PO PRN (05:29)
[2018-08-23 06:00] VITALS: BP 174/74
[2018-08-23 06:56] LABS: BASO % 0.4 % (0.0-1.0); EOS # 0.1 10^3/uL (0.0-0.50); EOS % 1.9 % (0.0-3.0); HEMATOCRIT 33.7 % (36.0-47.0); HEMOGLOBIN 11.1 g/dl (12.0-15.5); LYMPH # 2.1 10^3/uL (1.5-4.5); LYMPH % 28.9 % (24.0-44.0); MEAN CORPUSCULAR HEMOGLOBIN 29.4 pg (27.0-33.0); MEAN CORPUSCULAR HGB CONC 32.9 g/dl (32.0-36.5); MEAN CORPUSCULAR VOLUME 89.4 fl (80.0-96.0); MONO # 0.9 10^3/uL (0.0-0.8); MONO % 11.9 % (0.0-5.0); NEUTROPHILS # 4.1 10^3/uL (1.8-7.7); NEUTROPHILS % 56.5 % (36.0-66.0); PLATELET COUNT, AUTOMATED 201 10^3/uL (150-450); RED BLOOD COUNT 3.77 10^6/uL (4.00-5.40); WHITE BLOOD COUNT 7.3 10^3/uL (4.0-10.0)
[2018-08-23] MEDS: HumaLOG INSULIN (NovoLOG) PER UNIT SC SCH ×2 (07:30→12:00)
[2018-08-23] MEDS: TIOTROPIUM INHALER/CAPSULE (SPIRIVA) INH SCH (07:44)
[2018-08-23] MEDS: NICOTINE 21MG/24HR 1 EA TRANSDERMAL TD SCH (09:07)
[2018-08-23] MEDS: ASPIRIN 325 MG TAB PO SCH (09:07)
[2018-08-23] MEDS: metFORMIN (GLUCOPHAGE) 500 MG TAB PO SCH (09:07)
[2018-08-23] MEDS: buPROPion **XL** TABLET 150MG (WELLBUTRIN XL) PO SCH (09:07)
[2018-08-23 09:08] VITALS: BP 156/87
[2018-08-23] MEDS: LISINOPRIL 10 MG TAB PO SCH (09:08)
[2018-08-23] MEDS: PANTOPRAZOLE 40MG TAB (PROTONIX) PO SCH (09:08)
[2018-08-23] MEDS: NORCO, ANEXSIA 5/325MG TABLET (HYDROcodone/ACETAMINOPHEN) PO PRN (09:09)
[2018-08-23] MEDS ORDERED: LEVA750T7 PO (09:47)
[2018-08-23] MEDS ORDERED: LISI10TA4 PO (09:47)
[2018-08-23] MEDS ORDERED: MAGNESIUM CITRATE 300 ML BTL PO ONE (12:30)
--- NOTE | 2018-08-25 00:55 | DSES ---
DATE OF ADMISSION: 08/19/2018 DATE OF DISCHARGE: 08/23/2018 PRIMARY CARE PHYSICIAN: Gautam Ayala MD HISTORY: This is a 72-year-old female patient who resides in the community with care from her family, who has a history of diabetes, chronic low back pain, neck pain, anxiety, who had a change in her mental status and therefore was brought to the emergency room by her daughter. She was evaluated with a urinalysis consistent with urinary tract infection (UTI). CT abdomen and pelvis with perinephric stranding suggesting pyelonephritis. She was admitted to the hospital and started on IV Rocephin. Blood cultures and urine cultures were obtained. She was started on IV antibiotics. Physical therapy (PT), occupational therapy (OT) were ordered during hospitalization. She has remained medically stable. Her leukocytosis has resolved. She has now been afebrile for more than 24 hours. Her blood culture was negative. Her urine culture grew Escherichia coli ko sensitive. She was on IV Levaquin and changed to oral. She seems to be tolerating this well. She has not been safe to return home with physical therapy; although upon evaluation today, physical therapy feels as though if she has 24 hour care, she will be safe to return home. Her family is eager to coordinate this and are in fact prepared to take her home. They agree to in-home home health referral for continued physical therapy. Her discharge diagnosis include: 1. Acute pyelonephritis secondary to Escherichia coli 2. Physical debility 3. Altered mental status. 4. Major depressive disorder 5. Hypertension 6. hypothyroidism 7. Diabetes mellitus type 2. 8. Metabolic encephalopathy due to acute pyelonephritis. HER DISCHARGE MEDICATIONS INCLUDE: - levofloxacin 750 mg by mouth daily times 6 additional days - lisinopril 10 mg by mouth twice a day - hydrocodone/acetaminophen 7.25/325 mg four times daily as needed for pain - aspirin 325 mg daily - bupropion 150 mg tablets, two in the morning, one in the evening - calcium with D 600/200 one tablet twice daily - daily multivitamins - Garlique 400 mg daily - Prevacid 30 mg daily - Synthroid 100 mcg daily - meclizine 12.5 mg by mouth twice a day for dizziness - metformin 500 mg by mouth twice a day - fish oil 1000 mg by mouth twice a day - ranitidine 150 mg by mouth twice a day - Spiriva 18 mcg one inhalation daily - xanax 1 mg as needed for anxiety. DISCHARGE PLAN: Will be to followup with Dr. Mojica in 5 to 7 days. Home health referral. She is being discharged with a rolling walker and a shower chair. Scripts have been sent to [facility] for this. Her activity should be as tolerated. Her diet should be consistent carbohydrate.
[2019-08-20] MEDS ORDERED: raNITIdine SYRUP 150 MG/10 ML UDC PO PRN (21:00)
[2019-08-20] MEDS ORDERED: raNITIdine SYRUP 150 MG/10 ML UDC PO SCH (21:00)
== END 2018-08-23 17:57 | disposition home health service (06) | DRG 689 ==
LOC: M ED 21:51 → M ED INP 08-19 02:41 → M MS4PR 08-19 04:05
PROVIDERS: ADMIT Hospitalist; ATTEND Family Medicine
DX: N10 Acute pyelonephritis (principal); G93.41 Metabolic encephalopathy; I10 Essential (primary) hypertension; B96.29 Other Escherichia coli [E. coli] as the cause of diseases classified elsewhere; E11.9 Type 2 diabetes mellitus without complications; E03.9 Hypothyroidism, unspecified; F32.9 Major depressive disorder, single episode, unspecified; Z79.899 Other long term (current) drug therapy; Z79.82 Long term (current) use of aspirin; M54.5 Low back pain; K21.9 Gastro-esophageal reflux disease without esophagitis; F41.9 Anxiety disorder, unspecified; K57.90 Diverticulosis of intestine, part unspecified, without perforation or abscess without bleeding; F17.210 Nicotine dependence, cigarettes, uncomplicated; Z91.013 Allergy to seafood; Z88.8 Allergy status to other drugs, medicaments and biological substances; E86.0 Dehydration

== ENCOUNTER → 2018-09-12 | Outpatient (REF) | payer MEDICARE, MEDICAID ==
[~2018-09-12] MED LIST: ALPR2TAB3 PO; ASPI325T PO; ASPIRIN; BUPR150T5 PO; BUPR1TAB53 PO; CALC600T57 PO; DAILTAB51 PO; FISH7.5C PO; GARL400T5 PO; HYDR-3716 PO; LEVA750T7 PO; LEVO100T5 PO; LISI-542 PO; LISI10TA4 PO; MECL12.575 PO; METF500T13 PO; PREV1CAP PO; RANI150C PO; SPIR1CAP INH
[2018-09-12 18:33] LABS: ALBUMIN 3.1 GM/DL (3.2-5.2); BILIRUBIN,TOTAL 0.3 MG/DL (0.2-1.0); CALCIUM LEVEL 8.5 MG/DL (8.8-10.2); CREATININE FOR GFR 1.26 MG/DL (0.55-1.30); FREE T4 1.31 NG/DL (0.76-1.46); GLOMERULAR FILTRATION RATE 44.4 (>39); POTASSIUM SERUM 5.1 MEQ/L (3.5-5.1); THYROID STIMULATING HORMONE 4.38 uIU/ML (0.358-3.740); TOTAL PROTEIN 7.3 GM/DL (6.4-8.2)
[2018-09-12 18:46] LABS: HEMATOCRIT 34.9 % (36.0-47.0); HEMOGLOBIN 10.9 g/dl (12.0-15.5); MEAN CORPUSCULAR HEMOGLOBIN 29.4 pg (27.0-33.0); MEAN CORPUSCULAR HGB CONC 31.2 g/dl (32.0-36.5); MEAN CORPUSCULAR VOLUME 94.1 fl (80.0-96.0); PLATELET COUNT, AUTOMATED 264 10^3/uL (150-450); RED BLOOD COUNT 3.71 10^6/uL (4.00-5.40); WHITE BLOOD COUNT 7.6 10^3/uL (4.0-10.0)
== END ==
LOC: M SFHCCLAY 12:38
PROVIDERS: ATTEND Family Medicine
DX: E11.9 Type 2 diabetes mellitus without complications (principal); N10 Acute pyelonephritis
CPT/HCPCS: 80053; 82948; 84439; 84443; 85027; G0463

== ENCOUNTER → 2018-10-15 | Outpatient (REF) | payer MEDICARE, MEDICAID ==
[~2018-10-15] MED LIST changes: +ASPI-1 PO; -ASPI325T PO
[2018-10-15 13:33] LABS: APPEARANCE, URINE CLOUDY (CLEAR); BACTERIA, URINE AUTO 1+ (NEGATIVE); BILIRUBIN, URINE AUTO NEGATIVE (NEGATIVE); BLOOD, URINE BLOOD NEGATIVE (NEGATIVE); COLOR, URINE YELLOW (YELLOW); GLUCOSE, URINE (UA) AUTO NEGATIVE (NEGATIVE); KETONE, URINE AUTO NEGATIVE (NEGATIVE); LEUKOCYTE ESTERASE, URINE AUTO 3+ (NEGATIVE); MUCUS, URINE SMALL (NEGATIVE); NITRITE, URINE AUTO NEGATIVE (NEGATIVE); PROTEIN, URINE AUTO NEGATIVE (NEGATIVE); RBC, URINE AUTO 3 /HPF (0-3); SQUAMOUS EPITHELIAL CELL UR AU 1 /HPF (0-6); UROBILINOGEN, URINE AUTO 0.2 mg/dL (0.0-2.0); WBC, URINE AUTO TNTC /HPF (0-3)
== END ==
LOC: M LAB REF 13:04
PROVIDERS: ATTEND Family Medicine
DX: N39.0 Urinary tract infection, site not specified (principal)

== ENCOUNTER 2019-01-06 21:55 | Inpatient (IN) | payer MEDICARE, MEDICAID ==
[~2019-01-06] VITALS: Ht 165.1 cm; Wt 65.5 kg
[2019-01-06] MEDS ORDERED: NS 1,000 ML IV ONE (22:30)
[2019-01-06] MEDS ORDERED: ACETAMINOPHEN 500 MG TAB PO ONE (22:30)
[2019-01-06 22:56] LABS: BASO % 0.3 % (0.0-1.0); EOS % 0.2 % (0.0-3.0); HEMATOCRIT 40.3 % (36.0-47.0); HEMOGLOBIN 13.1 g/dl (12.0-15.5); LYMPH # 1.2 10^3/uL (1.5-4.5); LYMPH % 9.1 % (24.0-44.0); MEAN CORPUSCULAR HEMOGLOBIN 30.3 pg (27.0-33.0); MEAN CORPUSCULAR HGB CONC 32.5 g/dl (32.0-36.5); MEAN CORPUSCULAR VOLUME 93.1 fl (80.0-96.0); MONO # 0.7 10^3/uL (0.0-0.8); MONO % 5.8 % (0.0-5.0); NEUTROPHILS # 10.8 10^3/uL (1.8-7.7); NEUTROPHILS % 84.2 % (36.0-66.0); PLATELET COUNT, AUTOMATED 272 10^3/uL (150-450); RED BLOOD COUNT 4.33 10^6/uL (4.00-5.40); WHITE BLOOD COUNT 12.8 10^3/uL (4.0-10.0)
[2019-01-06] MEDS ORDERED: FLON1SPR NARES (23:08)
[2019-01-06] MEDS ORDERED: LISI-542 PO (23:08)
[2019-01-06] MEDS ORDERED: GNP400TA10 PO (23:08)
[2019-01-06] MEDS ORDERED: BUPR150T5 PO ×2 (23:08)
[2019-01-06] MEDS ORDERED: HYDR-4517 PO (23:08)
[2019-01-06] MEDS ORDERED: ALPR1TAB3 PO (23:15)
[2019-01-06] MEDS ORDERED: PATIENT COMMENTS (23:19)
[2019-01-06 23:24] LABS: APPEARANCE, URINE HAZY (CLEAR); BACTERIA, URINE AUTO 2+ (NEGATIVE); BILIRUBIN, URINE AUTO NEGATIVE (NEGATIVE); BLOOD, URINE BLOOD 1+ (NEGATIVE); COLOR, URINE YELLOW (YELLOW); GLUCOSE, URINE (UA) AUTO NEGATIVE (NEGATIVE); KETONE, URINE AUTO NEGATIVE (NEGATIVE); LEUKOCYTE ESTERASE, URINE AUTO TRACE (NEGATIVE); NITRITE, URINE AUTO NEGATIVE (NEGATIVE); PROTEIN, URINE AUTO 1+ mg/dL (NEGATIVE); RBC, URINE AUTO 10 /HPF (0-3); SPECIFIC GRAVITY URINE AUTO 1.008 (1.002-1.035); SQUAMOUS EPITHELIAL CELL UR AU 0 /HPF (0-6); UROBILINOGEN, URINE AUTO 0.2 mg/dL (0.0-2.0); WBC, URINE AUTO 10 /HPF (0-3)
[2019-01-06 23:24] LABS: ALBUMIN 3.8 GM/DL (3.2-5.2); BILIRUBIN,DIRECT 0.1 MG/DL (0.0-0.2); BILIRUBIN,TOTAL 0.3 MG/DL (0.2-1.0); CALCIUM LEVEL 9.1 MG/DL (8.8-10.2); CREATININE FOR GFR 1.09 MG/DL (0.55-1.30); FREE THYROXINE INDEX 3.9 % (1.3-4.8); GLOMERULAR FILTRATION RATE 52.4 (>39); POTASSIUM SERUM 4.8 MEQ/L (3.5-5.1); THYROID STIMULATING HORMONE 1.25 uIU/ML (0.358-3.740); THYROXINE (T4) 11.7 UG/DL (4.5-12.0); TOTAL PROTEIN 8.2 GM/DL (6.4-8.2)
[2019-01-07] MEDS ORDERED: ISOVUE-370 76% 100ML VIAL (Q9967) As Ordered ONE (00:05)
--- NOTE | 2019-01-07 00:36 | REPVR ---
EXAM: CT Head Without Contrast EXAM DATE/TIME: 01/06/2019 12:15 AM CLINICAL HISTORY: 73 years old, female; Altered mental status/memory loss; Confusion or disorientation; Additional info: Ams/fever TECHNIQUE: Imaging protocol: Axial computed tomography images of the head without contrast. Radiation optimization: All CT scans at this facility use at least one of these dose optimization techniques: automated exposure control; mA and/or kV adjustment per patient size (includes targeted exams where dose is matched to clinical indication); or iterative reconstruction. COMPARISON: CT Head without contrast 08/18/2018 11:16 PM FINDINGS: Brain: There is minimal patchy low attenuation of deep white matter. Ventricles: Upper normal ventricular system. Bones/joints: Unremarkable. No acute fracture. Sinuses: Visualized sinuses are unremarkable. No fluid levels. Mastoid air cells: Visualized mastoid air cells are well aerated. No mastoid effusion. Soft tissues: Unremarkable. IMPRESSION: 1. There has been little change from 08/18/2018. No acute interval intracranial process is identified. 2. Minimal chronic ischemic white matter change. 3. Decreased ethmoid sinus disease. Electronically signed by: Harry Carr On 01/07/2019 00:35:59 AM
[2019-01-07] MEDS ORDERED: NS 500 ML IV ONE (00:45)
[2019-01-07] MEDS ORDERED: IBUPROFEN 100 MG/5 ML SUSP UDC DYE FREE PO ONE (00:45)
--- NOTE | 2019-01-07 00:48 | REPVR ---
EXAM: CT Abdomen and Pelvis With Contrast EXAM DATE/TIME: 01/06/2019 12:15 AM CLINICAL HISTORY: 73 years old, female; Fever; Additional info: Ams/fever TECHNIQUE: Imaging protocol: Axial computed tomography images of the abdomen and pelvis with intravenous contrast. Coronal and sagittal reformatted images were created and reviewed. Radiation optimization: All CT scans at this facility use at least one of these dose optimization techniques: automated exposure control; mA and/or kV adjustment per patient size (includes targeted exams where dose is matched to clinical indication); or iterative reconstruction. Contrast material: ISOVUE 370; Contrast volume: 100 ml; Contrast route: IV; COMPARISON: CT ABD PELVIS W/O CONTRAST 08/19/2018 12:11 AM FINDINGS: Lungs: Slight bibasilar subpleural interstitial prominence. Liver: Calcific density anterior to the hepatic tip of uncertain etiology and may reflect old fat infarct. Gallbladder and bile ducts: Status post cholecystectomy. Pancreas: Normal. No ductal dilation. Spleen: Normal. No splenomegaly. Adrenals: Normal. No mass. Kidneys and ureters: Lobular configuration of the kidneys bilaterally some probable areas of parenchymal loss. There is a patchy decreased enhancement of the right kidney posteriorly with slight right perinephric induration posteriorly. Stomach and bowel: There is colonic diverticulosis without evidence of diverticulitis. The stomach protrudes into a small ventral wall defect to the right of the mesh superiorly. Appendix: There are no changes of appendicitis. A normal appendix is not seen. Intraperitoneal space: Normal. No free air. No significant fluid collection. Vasculature: There is mild calcification of the abdominal aorta with extension into the iliac arteries. Lymph nodes: Normal. No enlarged lymph nodes. Bladder: There is a Ramirez catheter in the bladder. Reproductive: Unremarkable as visualized. Bones/joints: The calcified disc L5-S1 with erosive changes of the endplates that is similar to the prior study. Soft tissues: Residua of previous ventral wall hernia repair with mesh. There is a small recurrent fat filled ventral wall hernia to the right of the mesh. IMPRESSION: 1. Lobular kidneys bilaterally with areas of parenchymal loss and evidence of right pyelonephritis. 2. There is a Ramirez catheter in the bladder. 3. Colonic diverticulosis without diverticulitis. 4. Status post cholecystectomy. 5. Status post ventral wall hernia repair with mesh with small recurrent fat filled ventral wall hernia along the right margin of the mesh. Electronically signed by: Harry Carr On 01/07/2019 00:47:25 AM
[2019-01-07] MEDS ORDERED: cefTRIAXone SOD 1 GM in D5W MINI-BAG PLUS 50 ML IV ONE (01:00)
[2019-01-07] MEDS ORDERED: MECLIZINE 12.5 MG TAB PO PRN (02:15)
--- NOTE | 2019-01-07 02:26 | HPEPDOC ---
[facility] Medical History & Physical Date of Admission Jan 07, 2019 Date of Service: Jan 07, 2019 History and Physical PCP: Gautam Mojica CHIEF COMPLAINT: Confusion HISTORY OF PRESENT ILLNESS: Patient is a 73-year-old female whom herself cannot recall why she was brought to the emergency room, exam she tells me that she feels completely fine and would like to go home she is awake alert and oriented 3 presently. Her grandniece is bedside and provides much of the history as does reviewing the chart and discussions with the ED provider. The patient herself is minimally able to fill in blanks. Over the last 24 hours she reportedly became more confused and speaking to people who were not in the room and speaks less comprehensible, she reportedly had the same presentation in August of this year and was admitted to the hospital for 6 days. For pyelonephritis at that time. Patient herself denies fevers or chills changes in her bladder habits. Otherwise patient denies weight loss, hair loss, headache, visual changes, chest pain, shortness of breath, cough, nausea, vomiting, diarrhea, abdominal pain, muscle aches, worsening arthritis, change in mood PAST MEDICAL HISTORY: 1. Diabetes mellitus. 2. Gastroesophageal reflux disease. 3. Depression 4. Active tobacco use 5. Hypothyroidism 6. Chronic pain 7. Anxiety 8. Obstructive lung disease. HOME MEDICATIONS: Please see below. ALLERGIES: Please see below PAST SURGICAL HISTORY: 1. Hysterectomy. 2. . 3. Appendectomy 4. Vocal cord surgery 5. Bladder surgery. SOCIAL HISTORY: Lives with: Daughter, Employment: Retired. She worked in a [employer], Tobacco use: Active smoker 54 pack years. ETOH: Denies, Illicit drug use: Tinnitus, Tattoos done unprofessionally: Denies, CODE STATUS: Full code FAMILY HISTORY:Reviewed and noncontributory REVIEW OF SYSTEMS: 10 systems reviewed and negative other than HPI PHYSICAL EXAMINATION: VITAL SIGNS: Temperature 101.8, pulse 92, respiratory rate 20, blood pressure 142/63, pulse oximetry 93 % on room air. GENERAL: Pleasant elderly female speaking with an [place] accent lying in a stretcher at a 30 angle sitting up in bed awake alert oriented speaking in complete sentences no acute distress. She is accompanied by her grandniece HEENT: Very dry mucous membranes no elevation and CVP CARDIOVASCULAR: S1 S2 regular no additional heart sounds appreciated. Mildly tachycardic at the time of my exam RESPIRATORY: Clear to auscultation bilaterally. ABDOMINAL: Bowel sounds present abdomen soft and nontender, positive CVA tenderness on the right. No suprapubic tenderness, she has a Ramirez catheter in place draining clear yellow urine placed in a EXTREMITIES: No clubbing cyanosis or edema NEUROLOGICAL: Spontaneously moves all 4 extremities cranial 2 through 12 grossly intact no gross focal deficits appreciated PSYCHOLOGICAL: Appropriate LABORATORY DATA: See below. MICROBIOLOGY: Please see below. IMAGING: Chest x-ray: Report pending Head CT:1. There has been little change from 08/18/2018. No acute interval intracranial process is identified. 2. Minimal chronic ischemic white matter change. 3. Decreased ethmoid sinus disease. CT abdomen pelvis:1. Lobular kidneys bilaterally with areas of parenchymal loss and evidence of right pyelonephritis. 2. There is a Ramirez catheter in the bladder. 3. Colonic diverticulosis without diverticulitis. 4. Status post cholecystectomy. 5. Status post ventral wall hernia repair with mesh with small recurrent fat filled ventral wall hernia along the right margin of the mesh. ASSESSMENT & PLAN: This is a 73-year-old female with acute metabolic encephalopa thy secondary to pyelonephritis. PROBLEMS: 1. Acute metabolic encephalopathy secondary to urinary tract infection and pyelonephritis: She is afebrile her UA suggestive of this as his imaging. Since this is very similar to her presentation back in August. Previously she has grown out pansensitive Escherichia coli and assess for the time being I will treat her empirically with ceftriaxone and Tylenol gentle IV fluids. Her mental status already appears to be improving with defervescence of her fever. Patient has a why she keeps getting recurrent urinary tract infections could consider an outpatient urology referral after her acute illness has resolved. Given her fragility and the degree of metabolic encephalopathy associated with her urinary tract infection I suspect she may have some underlying dementia on her work with physical therapy occupational therapy in place. This consultation see if additional services may be needed at home. She should likely complete a 14 day course of antibiotics and antibiotics adjusted based on culture data 2. Diabetes: Insulin sliding scale hold her home metformin 3.Gastroesophageal reflux disease: We'll replace lansoprazole with omeprazole, continue with ranitidine 4. Obstructive lung disease: Likely an element of COPD given her extensive tobacco history she is at her baseline respiratory status 5. Allergic rhinitis: Continue with Flonase 6. Hypothyroidism: Continue with levothyroxine 7. Hypertension: Continue with lisinopril 8. Vertigo: Continue with meclizine when necessary no episodes time of this presentation 9. Anxiety: Continue with alprazolam and bupropion 10. Chronic pain: We'll place hydrocodone with Percocets while hospitalized 11. Active tobacco abuse: Cessation counseling provided DVT PROPHYLAXIS: Lovenox DISPOSITION: Admitted to [facility] Vital Signs Vital Signs Date Time Temp Pulse Resp B/P (MAP) Pulse Ox O2 Delivery O2 Flow Rate FiO2 01/07/19 00:00 100.8 92 20 142/65 (90) 93 Laboratory Data Labs 24H Laboratory Tests 2 01/06/19 22:33: Immature Granulocyte % (Auto) 0.4, White Blood Count 12.8H, Red Blood Count 4.33, Hemoglobin 13.1, Hematocrit 40.3, Mean Corpuscular Volume 93.1, Mean Corpuscular Hemoglobin 30.3, Mean Corpuscular Hemoglobin Concent 32.5, Red Cell Distribution Width 14.5, Platelet Count 272, Neutrophils (%) (Auto) 84.2H, Lymphocytes (%) (Auto) 9.1L, Monocytes (%) (Auto) 5.8H, Eosinophils (%) (Auto) 0.2, Basophils (%) (Auto) 0.3, Neutrophils # (Auto) 10.8H, Lymphocytes # (Auto) 1.2L, Monocytes # (Auto) 0.7, Eosinophils # (Auto) 0.0, Basophils # (Auto) 0.0, Nucleated Red Blood Cells % (auto) 0.0, Anion Gap 10, Glomerular Filtration Rate 52.4, Lactic Acid Level 1.0, Calcium Level 9.1, Aspartate Amino Transf (AST/SGOT) 21, Alanine Aminotransferase (ALT/SGPT) 23, Alkaline Phosphatase 76, Total Bilirubin 0.3, Direct Bilirubin 0.1, Total Creatine Kinase 188, Total Protein 8.2, Albumin 3.8, Albumin/Globulin Ratio 0.86L, Thyroid Stimulating Hormone (TSH) 1.250, Free Thyroxine Index 3.9, Thyroxine (T4) 11.7, Triiodothyronine (T3) Uptake 33 01/06/19 23:04: Urine Appearance HAZY, Urine Color YELLOW, Urine pH 7.0, Urine Specific [place] 1.008, Urine Protein 1+H, Urine Glucose (UA) NEGATIVE, Urine Ketones NEGATIVE, Urine Urobilinogen 0.2, Urine Bilirubin NEGATIVE, Urine Leukocyte Esterase TRACEH, Urine Blood 1+H, Urine Nitrite NEGATIVE, Urine WBC (Auto) 10H, Urine RBC (Auto) 10H, Urine Hyaline Casts (Auto) 0, Urine Bacteria (Auto) 2+H, Urine Squamous Epithelial Cells 0, Urine Sperm (Auto) CBC/BMP Laboratory Tests 01/06/19 22:33 Red Blood Count 4.33, Mean Corpuscular Volume 93.1, Mean Corpuscular Hemoglobin 30.3, Mean Corpuscular Hemoglobin Concent 32.5, Red Cell Distribution Width 14.5, Neutrophils (%) (Auto) 84.2 H, Lymphocytes (%) (Auto) 9.1 L, Monocytes (%) (Auto) 5.8 H, Eosinophils (%) (Auto) 0.2, Basophils (%) (Auto) 0.3, Neutrophils # (Auto) 10.8 H, Lymphocytes # (Auto) 1.2 L, Monocytes # (Auto) 0.7, Eosinophils # (Auto) 0.0, Basophils # (Auto) 0.0 Microbiology Microbiology 01/06/19 Blood Culture, Received Pending 01/06/19 Urine Culture, Received Pending Home Medications Scheduled Aspirin (Aspirin) 325 Mg Tab, 325 MG PO DAILY Bupropion Hcl (Bupropion HCl Sr) 150 Mg Tab.sr.12h, 300 MG PO QAM Bupropion Hcl (Bupropion HCl Sr) 150 Mg Tab.sr.12h, 150 MG PO QPM Calcium Carbonate/Vitamin D3 (Calcium 600-Vit D3 200 Tablet) 1 Tab Tab, 1 TAB PO BID Fluticasone Propionate (Flonase Allergy Relief) 9.9 Ml Odonnell.susp, 2 SPRAY NARES DAILY Garlic (Garlic) 400 Mg Tablet, 400 MG PO DAILY Lansoprazole (Prevacid) 30 Mg Cap, 30 MG PO DAILY Levothyroxine Sodium (Levothyroxine Sodium) 100 Mcg Tab, 100 MCG PO DAILY Lisinopril (Lisinopril) 5 Mg Tablet, 5 MG PO DAILY Metformin HCl (Metformin HCl) 500 Mg Tab, 500 MG PO BID [place]ue-3/Dha/Epa/Fish Oil (Fish Oil EC 1,000 mg Softgel) 1 Cap Cap, 1,000 MG PO BID Ranitidine HCl (Ranitidine HCl) 150 Mg Cap, 1 CAP PO BID Tiotropium [place] (Spiriva) 18 Mcg Cap, 1 INHALATION INH DAILY Scheduled PRN Alprazolam (Alprazolam) 1 Mg Tablet, 1 MG PO QID PRN for ANXIETY Hydrocodone/Acetaminophen (Hydrocodone-Acetamin 10-325 mg) 1 Each Tablet, 1 TAB PO Q6H PRN for PAIN Meclizine HCl (Meclizine HCl) 12.5 Mg Tab, 12.5 MG PO BID PRN for DIZZINESS Miscellaneous Medications Multivitamin (Daily Chapo) 1 Tab Tab, 1 TAB PO [Patient Comments] 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 SHE DOES NOT KNOW HER MEDICATIONS AND THERE IS NO ONE WITH HER AT THIS TIME WHO CAN VERIFY ANY MEDICATIONS. WILL TRY TO TALK TO A KNOWLEDGEABLE FAMILY MEMBER LATER OR WILL CALL THE PHARMACY IN THE MORNING TO VERIFY THE MEDICAIONS. Allergies Coded Allergies: Scallop (Unverified Allergy, Unknown, UNKNOWN, 04/07/09) citalopram (Verified Adverse Reaction, Intermediate, racing heart, 01/06/19) A-FIB/CHADSVASC A-FIB History Current/History of A-Fib/PAF?: No MACKENZIE CALVILLO MD Jan 07, 2019 02:26
[2019-01-07] MEDS ORDERED: GLUCOSE 4 GM CHEW TABLET PO PRN (02:30)
[2019-01-07] MEDS ORDERED: DEXTROSE 50% 50 ML SYRINGE IV PRN (02:30)
[2019-01-07] MEDS ORDERED: GLUCAGON FOR INJ 1 MG VIAL (J1610) SC PRN (02:30)
[2019-01-07 03:05] VITALS: BP 131/60
[2019-01-07] MEDS: NS 1,000 ML IV SCH ×2 (03:46→17:34)
[2019-01-07] MEDS: LEVOTHYROXINE 100MCG TABLET (0.1MG) PO SCH (05:54)
[2019-01-07 06:00] VITALS: BP 139/65
[2019-01-07 06:21] LABS: HEMATOCRIT 36.3 % (36.0-47.0); HEMOGLOBIN 11.6 g/dl (12.0-15.5); MEAN CORPUSCULAR HEMOGLOBIN 29.7 pg (27.0-33.0); MEAN CORPUSCULAR VOLUME 92.8 fl (80.0-96.0); PLATELET COUNT, AUTOMATED 232 10^3/uL (150-450); RED BLOOD COUNT 3.91 10^6/uL (4.00-5.40)
[2019-01-07 06:39] LABS: CALCIUM LEVEL 8.9 MG/DL (8.8-10.2); CREATININE FOR GFR 1.15 MG/DL (0.55-1.30); GLOMERULAR FILTRATION RATE 49.2 (>39)
--- NOTE | 2019-01-07 07:21 | REP ---
Clinical: Fever . Comparison: 08/20/2018 . Findings: The mediastinum and cardiac silhouette are stable and within normal limits for portable technique. The lung busby are clear without acute consolidation, effusion, or pneumothorax. Skeletal structures are intact. Impression: No acute cardiopulmonary process appreciated. Electronically Signed by Eric Ko MD 01/07/2019 07:13 A
[2019-01-07] MEDS: HumaLOG INSULIN (NovoLOG) PER UNIT SC SCH ×4 (07:30→21:00)
[2019-01-07] MEDS: TIOTROPIUM INHALER/CAPSULE (SPIRIVA) INH SCH (08:30)
[2019-01-07] MEDS ORDERED: buPROPion **SR TABLET** (ZYBAN) 150MG PO SCH ×2 (09:00→21:00)
--- NOTE | 2019-01-07 09:07 | IPNPDOC ---
Subjective Date Seen The patient was seen on 01/07/19. Subjective Chief Complaint/HPI RIGHT pyelonephritis Events since last encounter c/o cold chills and poor appetite this am. General: Denies: Normal Appetite Constitutional: Reports: Chills, Fever (Tmax 101.2), Lethargy Pulmonary: Denies: Dyspnea, Cough Cardiovascular: Denies: Chest Pain, Palpitations, Orthopnea, Paroxysmal Noc. Dyspnea, Lt Headedness Gastrointestinal: Denies: Nausea, Vomiting, Abdominal Pain, Diarrhea, Constipation Psych: Reports: Mood Normal; Denies: Depression, Memory Issues Objective Physical Examination General Exam: Positive: Alert, Mild Distress (bundled in blankets, c/o cold chills, shivering) Neck Exam: Positive: Supple; Negative: JVD, thyromegaly Chest Exam: Positive: Clear to auscultation, Normal air movement Heart Exam: Positive: Rate Normal, Regular Rhythm, Normal S1, Normal S2; Negative: Murmurs, Rubs Extremity Exam: Positive: Normal pulses; Negative: Clubbing, Cyanosis, Edema Skin Exam: Positive: Nl turgor and temperature; Negative: Rash, Breakdown Psych Exam: Positive: Mental status NL, Mood NL, Oriented x 3 Assessment /Plan Assessment Patient seen, agree with note below. Patient appeared a bit confused when I saw her this afternoon. Persuaded to work with PT. Continue current abx, cultures pending. -- CDT Problems (1) Pyelonephritis Status: Acute Problem Text: DAy #2 Ceftriaxone. Urine cx pending. Blood cultures pending. (2) Fever Status: Acute Problem Text: Anti-pyretics ordered prn. (3) Metabolic encephalopathy Status: Acute Response to Treatment: Improving Problem Text: granddaughter states behavior near baseline. (4) Hypertension Status: Chronic (5) Hypothyroid Status: Chronic (6) MDD (major depressive disorder) Status: Chronic (7) DM2 (diabetes mellitus, type 2) Status: Chronic (8) COPD (chronic obstructive pulmonary disease) Status: Chronic (9) Nicotine use disorder Status: Chronic Problem Text: declines patch Plan/VTE VTE Prophylaxis Ordered?: Yes (Lovenox) VS, I&O, 24H, Fishbone Vital Signs/I&O Vital Signs Date Time Temp Pulse Resp B/P (MAP) Pulse Ox O2 Delivery O2 Flow Rate FiO2 01/07/19 06:00 97.3 72 18 139/65 (65) 93 I&O- Last 24 Hours up to 6 AM 01/07/19 06:00 Intake Total 1550 ml Output Total 800 ml Balance 750 ml Laboratory Data 24H LABS Laboratory Tests 2 01/06/19 22:33: Immature Granulocyte % (Auto) 0.4, White Blood Count 12.8H, Red Blood Count 4.33, Hemoglobin 13.1, Hematocrit 40.3, Mean Corpuscular Volume 93.1, Mean Corpuscular Hemoglobin 30.3, Mean Corpuscular Hemoglobin Concent 32.5, Red Cell Distribution Width 14.5, Platelet Count 272, Neutrophils (%) (Auto) 84.2H, Lymphocytes (%) (Auto) 9.1L, Monocytes (%) (Auto) 5.8H, Eosinophils (%) (Auto) 0.2, Basophils (%) (Auto) 0.3, Neutrophils # (Auto) 10.8H, Lymphocytes # (Auto) 1.2L, Monocytes # (Auto) 0.7, Eosinophils # (Auto) 0.0, Basophils # (Auto) 0.0, Nucleated Red Blood Cells % (auto) 0.0, Anion Gap 10, Glomerular Filtration Rate 52.4, Lactic Acid Level 1.0, Calcium Level 9.1, Aspartate Amino Transf (AST/SGOT) 21, Alanine Aminotransferase (ALT/SGPT) 23, Alkaline Phosphatase 76, Total Bilirubin 0.3, Direct Bilirubin 0.1, Total Creatine Kinase 188, Total Protein 8.2, Albumin 3.8, Albumin/Globulin Ratio 0.86L, Thyroid Stimulating Hormone (TSH) 1.250, Free Thyroxine Index 3.9, Thyroxine (T4) 11.7, Triiodothyronine (T3) Uptake 33 01/06/19 23:04: Urine Appearance HAZY, Urine Color YELLOW, Urine pH 7.0, Urine Specific [place] 1.008, Urine Protein 1+H, Urine Glucose (UA) NEGATIVE, Urine Ketones NEGATIVE, Urine Urobilinogen 0.2, Urine Bilirubin NEGATIVE, Urine Leukocyte Esterase TRACEH, Urine Blood 1+H, Urine Nitrite NEGATIVE, Urine WBC (Auto) 10H, Urine RBC (Auto) 10H, Urine Hyaline Casts (Auto) 0, Urine Bacteria (Auto) 2+H, Urine Squamous Epithelial Cells 0, Urine Sperm (Auto) 01/07/19 06:04: Nucleated Red Blood Cells % (auto) 0.0, Anion Gap 6L, Glomerular Filtration Rate 49.2, Calcium Level 8.9, Blood Urea Nitrogen 26H, Creatinine 1.15, Sodium Level 139, Potassium Level 4.0, Chloride Level 109H, Carbon Dioxide Level 24 CBC/BMP Laboratory Tests 01/06/19 22:33 Red Blood Count 4.33, Mean Corpuscular Volume 93.1, Mean Corpuscular Hemoglobin 30.3, Mean Corpuscular Hemoglobin Concent 32.5, Red Cell Distribution Width 14.5, Neutrophils (%) (Auto) 84.2 H, Lymphocytes (%) (Auto) 9.1 L, Monocytes (%) (Auto) 5.8 H, Eosinophils (%) (Auto) 0.2, Basophils (%) (Auto) 0.3, Neutrophils # (Auto) 10.8 H, Lymphocytes # (Auto) 1.2 L, Monocytes # (Auto) 0.7, Eosinophils # (Auto) 0.0, Basophils # (Auto) 0.0 01/07/19 06:04 Red Blood Count 3.91 L, Mean Corpuscular Volume 92.8, Mean Corpuscular Hemoglobin 29.7, Mean Corpuscular Hemoglobin Concent 32.0, Red Cell Distribution Width 14.6 H, Calcium Level 8.9 Microbiology Microbiology 01/07/19 Blood Culture, Received Pending 01/06/19 Blood Culture, Received Pending 01/06/19 Urine Culture, Received Pending Marianne ChuP Jan 07, 2019 09:07 PEGGY ALDANA DO Jan 08, 2019 23:09
[2019-01-07] MEDS: ENOXAPARIN 40 MG/0.4 ML SYRINGE (J1650) SC SCH (09:10)
[2019-01-07] MEDS: OMEPRAZOLE 20 MG CAP PO SCH (09:10)
[2019-01-07] MEDS: FLUTICASONE PROP 0.05% NASAL SPRAY 16 GM (FLONASE) NARES SCH (09:10)
[2019-01-07] MEDS: FAMOTIDINE 20 MG TAB PO SCH ×2 (09:11→20:55)
[2019-01-07] MEDS: ACETAMINOPHEN TAB 650MG DOSE (2X325MG) PO PRN ×2 (09:11→19:42)
[2019-01-07] MEDS: ASPIRIN 325 MG TAB PO SCH (09:11)
[2019-01-07] MEDS: LISINOPRIL 5 MG TAB PO SCH (09:18)
[2019-01-07 14:00] VITALS: BP 160/80
[2019-01-07] MEDS: PERCOCET 5MG/325MG TAB PO PRN ×2 (14:49→20:56)
[2019-01-07] MEDS: cefTRIAXone SOD 1 GM in D5W MINI-BAG PLUS 50 ML IV SCH (20:55)
[2019-01-07 22:00] VITALS: BP 124/57
[2019-01-08] MEDS: ACETAMINOPHEN TAB 650MG DOSE (2X325MG) PO PRN ×2 (03:33→09:48)
[2019-01-08 03:37] VITALS: BP 130/60
[2019-01-08] MEDS: NS 1,000 ML IV SCH ×2 (05:35→19:52)
[2019-01-08] MEDS: LEVOTHYROXINE 100MCG TABLET (0.1MG) PO SCH (05:35)
[2019-01-08 06:00] VITALS: BP 128/60
[2019-01-08 06:17] LABS: HEMATOCRIT 34.2 % (36.0-47.0); HEMOGLOBIN 10.8 g/dl (12.0-15.5); MEAN CORPUSCULAR HEMOGLOBIN 28.7 pg (27.0-33.0); MEAN CORPUSCULAR HGB CONC 31.6 g/dl (32.0-36.5); PLATELET COUNT, AUTOMATED 189 10^3/uL (150-450); RED BLOOD COUNT 3.76 10^6/uL (4.00-5.40); WHITE BLOOD COUNT 12.1 10^3/uL (4.0-10.0)
[2019-01-08 06:34] LABS: BLOOD UREA NITROGEN 16 MG/DL (7-18); CALCIUM LEVEL 7.8 MG/DL (8.8-10.2); CARBON DIOXIDE LEVEL 21 MEQ/L (21-32); CHLORIDE LEVEL 107 MEQ/L (98-107); CREATININE FOR GFR 0.82 MG/DL (0.55-1.30); GLOMERULAR FILTRATION RATE > 60.0 (>39); GLUCOSE, FASTING 89 MG/DL (70-100); POTASSIUM SERUM 3.6 MEQ/L (3.5-5.1); SODIUM LEVEL 137 MEQ/L (136-145)
[2019-01-08] MEDS: HumaLOG INSULIN (NovoLOG) PER UNIT SC SCH ×4 (07:30→20:58)
[2019-01-08] MEDS: ASPIRIN 325 MG TAB PO SCH (09:29)
[2019-01-08] MEDS: ENOXAPARIN 40 MG/0.4 ML SYRINGE (J1650) SC SCH (09:30)
[2019-01-08] MEDS: FLUTICASONE PROP 0.05% NASAL SPRAY 16 GM (FLONASE) NARES SCH (09:30)
[2019-01-08] MEDS: LISINOPRIL 5 MG TAB PO SCH (09:30)
[2019-01-08] MEDS: FAMOTIDINE 20 MG TAB PO SCH ×2 (09:30→20:58)
[2019-01-08] MEDS: OMEPRAZOLE 20 MG CAP PO SCH (09:30)
--- NOTE | 2019-01-08 12:26 | IPNPDOC ---
Subjective Date Seen The patient was seen on 01/08/19. Subjective Chief Complaint/HPI Feels tired,but no other complaints Constitutional: Denies: Chills, Fever Pulmonary: Denies: Dyspnea, Cough Cardiovascular: Denies: Chest Pain, Palpitations Gastrointestinal: Denies: Nausea, Vomiting, Abdominal Pain, Diarrhea, Constipation Objective Physical Examination General Exam: Positive: Alert, No Acute Distress Neck Exam: Negative: JVD Chest Exam: Positive: Clear to auscultation, Normal air movement Heart Exam: Positive: Rate Normal, Regular Rhythm, Normal S1, Normal S2; Negative: Murmurs, Rubs Extremity Exam: Negative: Edema Skin Exam: Positive: Nl turgor and temperature Psych Exam: Positive: Mental status NL (Talked to me, bright and alert - oriented), Mood NL, Oriented x 3 Assessment /Plan Assessment Patient seen, agree with note below. Less confused today. Urine culture still pending; persistent leukocytosis suggests that we may need to adjust abx. -- CDT Problems (1) Pyelonephritis Status: Acute Problem Text: 01/08 - DAy #3 Ceftriaxone. Still with right CVA tenderness, fever improving Urine cx pending. Blood cultures negative Cont IVF Encourage OOB (2) Fever Status: Acute Problem Text: Anti-pyretics ordered prn. (3) Metabolic encephalopathy Status: Acute Response to Treatment: Improving Problem Text: granddaughter states behavior near baseline. (4) Hypertension Status: Chronic (5) Hypothyroid Status: Chronic (6) MDD (major depressive disorder) Status: Chronic (7) DM2 (diabetes mellitus, type 2) Status: Chronic (8) COPD (chronic obstructive pulmonary disease) Status: Chronic (9) Nicotine use disorder Status: Chronic Problem Text: declines patch Plan/VTE VTE Prophylaxis Ordered?: Yes (Lovenox) Plan Therapy: PT VS, I&O, 24H, Fishbone Vital Signs/I&O Vital Signs Date Time Temp Pulse Resp B/P (MAP) Pulse Ox O2 Delivery O2 Flow Rate FiO2 01/08/19 09:30 135/72 01/08/19 06:00 99.3 85 18 93 I&O- Last 24 Hours up to 6 AM 01/08/19 06:00 Intake Total 2200 ml Output Total 2650 ml Balance -450 ml Laboratory Data 24H LABS Laboratory Tests 2 01/07/19 17:18: Bedside Glucose (Misc Panel) 87 7/1/19 20:29: Bedside Glucose (Misc Panel) 121H 01/08/19 05:25: Nucleated Red Blood Cells % (auto) 0.0, Anion Gap 9, Glomerular Filtration Rate > 60.0, Blood Urea Nitrogen 16, Creatinine 0.82, Sodium Level 137, Potassium Level 3.6, Chloride Level 107, Carbon Dioxide Level 21, Calcium Level 7.8L 01/08/19 11:20: Bedside Glucose (Misc Panel) 94 CBC/BMP Laboratory Tests 01/08/19 05:25 Red Blood Count 3.76 L, Mean Corpuscular Volume 91.0, Mean Corpuscular Hemoglobin 28.7, Mean Corpuscular Hemoglobin Concent 31.6 L, Red Cell Distribu tion Width 14.8 H, Calcium Level 7.8 L Microbiology Microbiology 01/07/19 Blood Culture - Preliminary, Resulted No growth after 24 hours . All specim... 01/06/19 Blood Culture - Preliminary, Resulted No growth after 24 hours . All specim... 01/06/19 Urine Culture, Received Pending CAMERON TEJEDA PA-C Jan 08, 2019 12:26 PEGGY ALDANA DO Jan 09, 2019 00:00
[2019-01-08] MEDS: ALPRAZolam 0.5 MG TAB PO PRN ×2 (13:16→19:51)
[2019-01-08] MEDS: TIOTROPIUM INHALER/CAPSULE (SPIRIVA) INH SCH (13:30)
[2019-01-08 14:00] VITALS: BP 116/78
[2019-01-08] MEDS: PERCOCET 5MG/325MG TAB PO PRN ×2 (17:49→19:55)
[2019-01-08] MEDS: cefTRIAXone SOD 1 GM in D5W MINI-BAG PLUS 50 ML IV SCH (20:58)
[2019-01-08 22:00] VITALS: BP 142/64
[2019-01-09] MEDS: LEVOTHYROXINE 100MCG TABLET (0.1MG) PO SCH (05:39)
[2019-01-09] MEDS: ACETAMINOPHEN TAB 650MG DOSE (2X325MG) PO PRN (05:40)
[2019-01-09] MEDS: ALPRAZolam 0.5 MG TAB PO PRN ×2 (05:47→20:43)
[2019-01-09] MEDS: PERCOCET 5MG/325MG TAB PO PRN ×3 (05:48→20:45)
[2019-01-09 06:00] VITALS: BP 184/74
[2019-01-09 06:09] LABS: HEMATOCRIT 33.5 % (36.0-47.0); HEMOGLOBIN 10.7 g/dl (12.0-15.5); MEAN CORPUSCULAR HGB CONC 31.9 g/dl (32.0-36.5); MEAN CORPUSCULAR VOLUME 93.8 fl (80.0-96.0); PLATELET COUNT, AUTOMATED 193 10^3/uL (150-450); RED BLOOD COUNT 3.57 10^6/uL (4.00-5.40); WHITE BLOOD COUNT 8.6 10^3/uL (4.0-10.0)
[2019-01-09] MEDS: NS 1,000 ML IV SCH (06:38)
[2019-01-09 06:42] LABS: BLOOD UREA NITROGEN 13 MG/DL (7-18); CALCIUM LEVEL 7.7 MG/DL (8.8-10.2); CARBON DIOXIDE LEVEL 21 MEQ/L (21-32); CHLORIDE LEVEL 108 MEQ/L (98-107); CREATININE FOR GFR 0.76 MG/DL (0.55-1.30); GLOMERULAR FILTRATION RATE > 60.0 (>39); GLUCOSE, FASTING 88 MG/DL (70-100); POTASSIUM SERUM 3.9 MEQ/L (3.5-5.1); SODIUM LEVEL 138 MEQ/L (136-145)
[2019-01-09 06:54] VITALS: BP 128/62
[2019-01-09] MEDS: HumaLOG INSULIN (NovoLOG) PER UNIT SC SCH ×4 (07:22→20:45)
[2019-01-09] MEDS: TIOTROPIUM INHALER/CAPSULE (SPIRIVA) INH SCH (07:47)
[2019-01-09] MEDS: LISINOPRIL 5 MG TAB PO SCH (09:07)
[2019-01-09] MEDS: ASPIRIN 325 MG TAB PO SCH (09:07)
[2019-01-09] MEDS: ENOXAPARIN 40 MG/0.4 ML SYRINGE (J1650) SC SCH (09:07)
[2019-01-09] MEDS: OMEPRAZOLE 20 MG CAP PO SCH (09:07)
[2019-01-09] MEDS: FAMOTIDINE 20 MG TAB PO SCH ×2 (09:07→20:43)
[2019-01-09] MEDS: FLUTICASONE PROP 0.05% NASAL SPRAY 16 GM (FLONASE) NARES SCH (09:08)
--- NOTE | 2019-01-09 11:43 | IPNPDOC ---
Subjective Date Seen The patient was seen on 01/09/19. Subjective Chief Complaint/HPI Patient sitting comfortably at bedside when I entered the room. She reports to be feeling well. Constitutional: Denies: Chills, Fever Pulmonary: Denies: Dyspnea, Cough Cardiovascular: Denies: Chest Pain, Palpitations, Orthopnea, Edema Gastrointestinal: Denies: Nausea, Vomiting, Abdominal Pain Psych: Reports: Mood Normal Objective Physical Examination General Exam: Positive: Alert, No Acute Distress Neck Exam: Negative: JVD Chest Exam: Positive: Clear to auscultation, Normal air movement Heart Exam: Positive: Rate Normal, Regular Rhythm, Normal S1, Normal S2; Negative: Murmurs, Rubs Extremity Exam: Negative: Edema Skin Exam: Positive: Nl turgor and temperature Psych Exam: Positive: Mental status NL (Talked to me, bright and alert - oriented), Mood NL, Oriented x 3 Assessment /Plan Assessment Patient seen, agree with note. Mental status improved. Leukocytosis resolved, and urine cultures returned. Likely DC home tomorrow. -- CDT Problems (1) Pyelonephritis Status: Acute Problem Text: 01/09/19: Day #4 of Ceftriaxone. No CVA tenderness today. Afebrile. WBC down to 8.6. BC negative after 48 hours. Urine cx E-coli 01/08 - DAy #3 Ceftriaxone. Still with right CVA tenderness, fever improving Urine cx pending. Blood cultures negative Cont IVF Encourage OOB (2) Fever Status: Acute Problem Text: 01/09/19: T-Max 99.6 Anti-pyretics ordered prn. (3) Metabolic encephalopathy Status: Acute Response to Treatment: Stable Problem Text: granddaughter states behavior near baseline. (4) Hypertension Status: Chronic (5) Hypothyroid Status: Chronic (6) MDD (major depressive disorder) Status: Chronic (7) DM2 (diabetes mellitus, type 2) Status: Chronic (8) COPD (chronic obstructive pulmonary disease) Status: Chronic (9) Nicotine use disorder Status: Chronic Problem Text: declines patch Plan/VTE VTE Prophylaxis Ordered?: Yes (Lovenox) Plan Therapy: PT VS, I&O, 24H, Fishbone Vital Signs/I&O Vital Signs Date Time Temp Pulse Resp B/P (MAP) Pulse Ox O2 Delivery O2 Flow Rate FiO2 01/09/19 09:07 135/72 01/09/19 06:54 99.3 01/09/19 06:23 16 01/09/19 06:00 86 92 I&O- Last 24 Hours up to 6 AM 01/09/19 06:00 Intake Total 3345 ml Output Total 2550 ml Balance 795 ml Laboratory Data 24H LABS Laboratory Tests 2 01/08/19 16:36: Bedside Glucose (Misc Panel) 121H 01/08/19 19:58: Bedside Glucose (Misc Panel) 154H 01/09/19 05:54: Nucleated Red Blood Cells % (auto) 0.0, Anion Gap 9, Glomerular Filtration Rate > 60.0, Blood Urea Nitrogen 13, Creatinine 0.76, Sodium Level 138, Potassium Level 3.9, Chloride Level 108H, Carbon Dioxide Level 21, Calcium Level 7.7L 01/09/19 11:24: CBC/BMP Laboratory Tests 01/09/19 05:54 Red Blood Count 3.57 L, Mean Corpuscular Volume 93.8, Mean Corpuscular Hemoglobin 30.0, Mean Corpuscular Hemoglobin Concent 31.9 L, Red Cell Distribution Width 14.6 H, Calcium Level 7.7 L Microbiology Microbiology 01/07/19 Blood Culture - Preliminary, Resulted No Growth after 48 hours. All Specime... 01/06/19 Blood Culture - Preliminary, Resulted No Growth after 48 hours. All Specime... 01/06/19 Urine Culture - Final, Complete Escherichia Coli ISABEL TEIXEIRAP Jan 09, 2019 11:43 PEGGY ALDANA DO Jan 10, 2019 00:34
[2019-01-09 14:00] VITALS: BP 145/80
[2019-01-09] MEDS: cefTRIAXone SOD 1 GM in D5W MINI-BAG PLUS 50 ML IV SCH (20:46)
[2019-01-09 22:00] VITALS: BP 142/64
[2019-01-10] MEDS: PERCOCET 5MG/325MG TAB PO PRN (03:24)
[2019-01-10 06:00] VITALS: BP 162/66
[2019-01-10] MEDS: LEVOTHYROXINE 100MCG TABLET (0.1MG) PO SCH (06:22)
[2019-01-10] MEDS: ALPRAZolam 0.5 MG TAB PO PRN (06:22)
[2019-01-10 06:51] LABS: HEMATOCRIT 31.2 % (36.0-47.0); HEMOGLOBIN 9.8 g/dl (12.0-15.5); MEAN CORPUSCULAR HGB CONC 31.4 g/dl (32.0-36.5); MEAN CORPUSCULAR VOLUME 92.3 fl (80.0-96.0); PLATELET COUNT, AUTOMATED 204 10^3/uL (150-450); RED BLOOD COUNT 3.38 10^6/uL (4.00-5.40); WHITE BLOOD COUNT 6.7 10^3/uL (4.0-10.0)
[2019-01-10 07:11] LABS: BLOOD UREA NITROGEN 17 MG/DL (7-18); CALCIUM LEVEL 8.2 MG/DL (8.8-10.2); CARBON DIOXIDE LEVEL 25 MEQ/L (21-32); CHLORIDE LEVEL 112 MEQ/L (98-107); CREATININE FOR GFR 0.81 MG/DL (0.55-1.30); GLOMERULAR FILTRATION RATE > 60.0 (>39); GLUCOSE, FASTING 87 MG/DL (70-100); POTASSIUM SERUM 3.8 MEQ/L (3.5-5.1); SODIUM LEVEL 144 MEQ/L (136-145)
[2019-01-10] MEDS: HumaLOG INSULIN (NovoLOG) PER UNIT SC SCH ×2 (07:30→12:00)
[2019-01-10] MEDS: TIOTROPIUM INHALER/CAPSULE (SPIRIVA) INH SCH (08:49)
[2019-01-10] MEDS: OMEPRAZOLE 20 MG CAP PO SCH (09:24)
[2019-01-10] MEDS: FLUTICASONE PROP 0.05% NASAL SPRAY 16 GM (FLONASE) NARES SCH (09:24)
[2019-01-10] MEDS: FAMOTIDINE 20 MG TAB PO SCH (09:24)
[2019-01-10] MEDS: ASPIRIN 325 MG TAB PO SCH (09:24)
[2019-01-10] MEDS: ENOXAPARIN 40 MG/0.4 ML SYRINGE (J1650) SC SCH (09:24)
[2019-01-10 09:29] VITALS: BP 148/70
[2019-01-10] MEDS: LISINOPRIL 5 MG TAB PO SCH (09:29)
[2019-01-10] MEDS ORDERED: CEFD300CAP PO (11:56)
--- NOTE | 2019-01-10 17:15 | DSES ---
DATE OF ADMISSION: 01/07/2019 DATE OF DISCHARGE: 01/10/2019 PRIMARY CARE PHYSICIAN (PCP): Dr. Gautam Mojica. ATTENDING PHYSICIAN: Dr. Clarence Lal. HISTORY: This is a 73-year-old female patient who presented to [facility] emergency room with confusion. The patient was not able, at the time of presentation, to tell why she was there. Her grandniece is at bedside and provided much of the history. Patient had reportedly, 24 hours prior to her presentation, become more confused, speaking to people who were not in the room with less comprehensible speech. Patient had a history of a similar occurrence in August and was admitted to the hospital for pyelonephritis. Patient denied any fevers or chills or recent changes in her bladder habits at time of admission. She was admitted to the hospital for acute metabolic encephalopathy secondary to urinary tract infection and pyelonephritis after CT of the abdomen was obtained revealing evidence of right pyelonephritis. She was started on intravenous Rocephin. During her hospitalization, she has remained medically stable. Her leukocytosis has resolved. Her renal function has remained stable. She has now been afebrile since 01/08/2019 at 3:00 a.m. She has been on intravenous Rocephin since admission, receiving a total of four doses. DISCHARGE DIAGNOSES: 1. Acute pyelonephritis. 2. Metabolic encephalopathy. 3. Hypertension. 4. Hypothyroidism. 5. Major depressive disorder. 6. Diabetes mellitus type 2. 7. Nicotine user. DISCHARGE MEDICATIONS: - Spiriva one inhalation daily - ranitidine 150 mg by mouth twice a day - fish oil one capsule twice a day - multivitamin one tablet daily - metformin 500 mg twice a day - meclizine 12.5 mg by mouth twice a day as needed for dizziness - lisinopril 5 mg daily - levothyroxine 100 mcg daily - Prevacid 30 mg by mouth daily - Vicodin 10/325 one table by mouth every 6 hours as needed for pain - garlic 400 mg by mouth daily - Flonase two sprays intranasally daily - calcium with D 600/200 one tablet by mouth twice a day - bupropion 300 mg in the morning, 150 mg in the evening - aspirin 325 mg by mouth daily - Xanax 1 mg by mouth four times a day as needed for anxiety - cefdinir 300 mg twice a day times seven days DISCHARGE PLAN: 1. Follow up with Dr. Mojica. 2. Activity should be as tolerated. 3. Diet should be consistent carbohydrate.
== END 2019-01-10 14:00 | disposition home or self-care (01) | DRG 689 ==
LOC: M ED 21:55 → M ED INP 01-07 01:55 → M MSPAV 01-07 03:02
PROVIDERS: ADMIT Internal Medicine; ATTEND Family Medicine
DX: N10 Acute pyelonephritis (principal); G93.41 Metabolic encephalopathy; F32.9 Major depressive disorder, single episode, unspecified; J44.9 Chronic obstructive pulmonary disease, unspecified; I10 Essential (primary) hypertension; F17.200 Nicotine dependence, unspecified, uncomplicated; E11.9 Type 2 diabetes mellitus without complications; E03.9 Hypothyroidism, unspecified; Z79.899 Other long term (current) drug therapy; Z79.82 Long term (current) use of aspirin; K21.9 Gastro-esophageal reflux disease without esophagitis; F41.9 Anxiety disorder, unspecified; K57.30 Diverticulosis of large intestine without perforation or abscess without bleeding; G89.29 Other chronic pain

== ENCOUNTER 2019-01-11 01:34 | Emergency (ER) | payer MEDICARE, MEDICAID ==
[~2019-01-11] VITALS: Ht 162.6 cm; Wt 68.2 kg
[~2019-01-11 01:34] MED LIST changes: +ALPR1TAB3 PO; +CEFD300CAP PO; +FLON1SPR NARES; +GNP400TA10 PO; +HYDR-4517 PO; +PATIENT COMMENTS
[2019-01-11] MEDS ORDERED: MORPHINE 4 MG/ML 1ML VIAL/SYRINGE (J2270) IV PRN (02:30)
[2019-01-11] MEDS ORDERED: ONDANSETRON 4MG/2ML VIAL (J2405) IV ONE (02:30)
[2019-01-11 02:45] LABS: BASO % 0.2 % (0.0-1.0); EOS # 0.1 10^3/uL (0.0-0.50); EOS % 1.7 % (0.0-3.0); HEMATOCRIT 31.6 % (36.0-47.0); HEMOGLOBIN 10.2 g/dl (12.0-15.5); LYMPH % 36.5 % (24.0-44.0); MEAN CORPUSCULAR HGB CONC 32.3 g/dl (32.0-36.5); MEAN CORPUSCULAR VOLUME 92.9 fl (80.0-96.0); MONO # 1.2 10^3/uL (0.0-0.8); MONO % 13.9 % (0.0-5.0); NEUTROPHILS # 3.9 10^3/uL (1.8-7.7); NEUTROPHILS % 47.5 % (36.0-66.0); PLATELET COUNT, AUTOMATED 220 10^3/uL (150-450); WHITE BLOOD COUNT 8.3 10^3/uL (4.0-10.0)
[2019-01-11 02:57] LABS: ALT/SGPT 34 U/L (12-78); BILIRUBIN,DIRECT < 0.1 MG/DL (0.0-0.2); BILIRUBIN,TOTAL 0.2 MG/DL (0.2-1.0); BLOOD UREA NITROGEN 16 MG/DL (7-18); CALCIUM LEVEL 8.3 MG/DL (8.8-10.2); CARBON DIOXIDE LEVEL 25 MEQ/L (21-32); CHLORIDE LEVEL 107 MEQ/L (98-107); CREATININE FOR GFR 0.79 MG/DL (0.55-1.30); GLOMERULAR FILTRATION RATE > 60.0 (>39); GLUCOSE, FASTING 85 MG/DL (70-100); LIPASE 68 U/L (73-393); POTASSIUM SERUM 3.9 MEQ/L (3.5-5.1); SODIUM LEVEL 142 MEQ/L (136-145); TOTAL PROTEIN 6.9 GM/DL (6.4-8.2)
[2019-01-11] MEDS ORDERED: cefTRIAXone SOD 1 GM in D5W MINI-BAG PLUS 50 ML IV ONE (04:45)
[2019-01-11] MEDS ORDERED: NORCO 5/325MG TABLET (BULK FOR ED) PO ONE (06:00)
[2019-01-11 07:17] VITALS: BP 162/72
== END 2019-01-11 07:21 | disposition home or self-care (01) ==
LOC: M ED 01:34
DX: M54.5 Low back pain (principal); I10 Essential (primary) hypertension; E03.9 Hypothyroidism, unspecified; Z87.440 Personal history of urinary (tract) infections; Z87.442 Personal history of urinary calculi; F17.210 Nicotine dependence, cigarettes, uncomplicated; Z88.8 Allergy status to other drugs, medicaments and biological substances; Z91.013 Allergy to seafood; Z79.899 Other long term (current) drug therapy; Z79.02 Long term (current) use of antithrombotics/antiplatelets; Z79.84 Long term (current) use of oral hypoglycemic drugs; Z79.82 Long term (current) use of aspirin
CPT/HCPCS: 80048; 80076; 81001; 83690; 85025; 96374; 96375; 99285; J0696; J2270; J2405

== ENCOUNTER 2019-02-01 14:26 | Emergency (ER) | payer MEDICARE, MEDICAID ==
[~2019-02-01] VITALS: Ht 167.6 cm; Wt 61.8 kg
[2019-02-01 15:42] LABS: BASO % 0.4 % (0.0-1.0); EOS % 0.3 % (0.0-3.0); HEMATOCRIT 40.9 % (36.0-47.0); HEMOGLOBIN 13.1 g/dl (12.0-15.5); LYMPH # 1.5 10^3/uL (1.5-4.5); LYMPH % 13.8 % (24.0-44.0); MEAN CORPUSCULAR HEMOGLOBIN 28.9 pg (27.0-33.0); MEAN CORPUSCULAR VOLUME 90.3 fl (80.0-96.0); MONO % 9.7 % (0.0-5.0); NEUTROPHILS % 75.5 % (36.0-66.0); PLATELET COUNT, AUTOMATED 230 10^3/uL (150-450); RED BLOOD COUNT 4.53 10^6/uL (4.00-5.40); WHITE BLOOD COUNT 10.6 10^3/uL (4.0-10.0)
[2019-02-01] MEDS ORDERED: LIDOCAINE 2% 5ML JELLY UROJET TOP ONE (16:00)
[2019-02-01] MEDS ORDERED: IBUPROFEN 100 MG/5 ML SUSP UDC DYE FREE PO ONE (16:00)
[2019-02-01 16:14] LABS: ALBUMIN 3.7 GM/DL (3.2-5.2); ALT/SGPT 19 U/L (12-78); BILIRUBIN,DIRECT 0.2 MG/DL (0.0-0.2); BILIRUBIN,TOTAL 0.6 MG/DL (0.2-1.0); BLOOD UREA NITROGEN 16 MG/DL (7-18); CALCIUM LEVEL 9.6 MG/DL (8.8-10.2); CARBON DIOXIDE LEVEL 29 MEQ/L (21-32); CHLORIDE LEVEL 103 MEQ/L (98-107); CK-MB VALUE MASS 2.7 NG/ML (<3.6); CPK CREATINE PHOSPHOKINASE 138 U/L (26-192); CREATININE FOR GFR 1.05 MG/DL (0.55-1.30); GLOMERULAR FILTRATION RATE 54.7 (>39); GLUCOSE, FASTING 111 MG/DL (70-100); MB/CK RELATIVE INDEX 1.96 (< OR =4); POTASSIUM SERUM 4.2 MEQ/L (3.5-5.1); SODIUM LEVEL 138 MEQ/L (136-145); THYROID STIMULATING HORMONE 0.243 uIU/ML (0.358-3.740); TOTAL PROTEIN 8.3 GM/DL (6.4-8.2); TROPONIN I < 0.02 NG/ML (< 0.10)
[2019-02-01] MEDS ORDERED: CIPR-249 PO (17:29)
[2019-02-01 17:30] VITALS: BP 158/70
[2019-02-01] MEDS ORDERED: CIPROFLOXACIN 500 MG TAB PO ONE (17:30)
--- NOTE | 2019-02-02 09:35 | ECGEPIP ---
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
== END 2019-02-01 18:17 | disposition home or self-care (01) ==
LOC: M ED 14:26
DX: N39.0 Urinary tract infection, site not specified (principal); E11.9 Type 2 diabetes mellitus without complications; I10 Essential (primary) hypertension; K21.9 Gastro-esophageal reflux disease without esophagitis; E07.9 Disorder of thyroid, unspecified; Z79.899 Other long term (current) drug therapy; Z79.84 Long term (current) use of oral hypoglycemic drugs; Z79.82 Long term (current) use of aspirin; Z88.8 Allergy status to other drugs, medicaments and biological substances; Z91.018 Allergy to other foods; F17.210 Nicotine dependence, cigarettes, uncomplicated

== ENCOUNTER 2019-04-27 23:09 | Inpatient (IN) | payer MEDICARE, MEDICAID ==
[~2019-04-27] VITALS: Ht 160 cm; Wt 28.3 kg
[~2019-04-27 23:09] MED LIST changes: +CIPR-249 PO
[2019-04-27 23:40] LABS: BASO % 0.5 % (0.0-1.0); EOS # 0.3 10^3/uL (0.0-0.5); EOS % 3.2 % (0.0-3.0); HEMATOCRIT 31.9 % (36.0-47.0); HEMOGLOBIN 10.1 g/dl (12.0-15.5); LYMPH # 1.8 10^3/uL (1.5-5.0); LYMPH % 21.3 % (24.0-44.0); MEAN CORPUSCULAR HEMOGLOBIN 28.5 pg (27.0-33.0); MEAN CORPUSCULAR HGB CONC 31.7 g/dl (32.0-36.5); MEAN CORPUSCULAR VOLUME 89.9 fl (80.0-96.0); MONO # 0.7 10^3/uL (0.0-0.8); NEUTROPHILS # 5.5 10^3/uL (1.5-8.5); NEUTROPHILS % 66.8 % (36.0-66.0); PLATELET COUNT, AUTOMATED 275 10^3/uL (150-450); RED BLOOD COUNT 3.55 10^6/uL (4.00-5.40); WHITE BLOOD COUNT 8.2 10^3/uL (4.0-10.0)
[2019-04-28 00:14] LABS: ALBUMIN 3.1 GM/DL (3.2-5.2); ALT/SGPT 15 U/L (12-78); BILIRUBIN,DIRECT 0.1 MG/DL (0.0-0.2); BILIRUBIN,TOTAL 0.2 MG/DL (0.2-1.0); BLOOD UREA NITROGEN 27 MG/DL (7-18); CALCIUM LEVEL 9.3 MG/DL (8.8-10.2); CARBON DIOXIDE LEVEL 25 MEQ/L (21-32); CHLORIDE LEVEL 101 MEQ/L (98-107); CK-MB VALUE MASS 1.7 NG/ML (<3.6); CPK CREATINE PHOSPHOKINASE 150 U/L (26-192); CREATININE FOR GFR 1.29 MG/DL (0.55-1.30); GLOMERULAR FILTRATION RATE 43.1 (>39); GLUCOSE, FASTING 109 MG/DL (70-100); MB/CK RELATIVE INDEX 1.13 (< OR =4); POTASSIUM SERUM 4.7 MEQ/L (3.5-5.1); SODIUM LEVEL 134 MEQ/L (136-145); THYROID STIMULATING HORMONE 0.508 uIU/ML (0.358-3.740); TOTAL PROTEIN 7.7 GM/DL (6.4-8.2); TROPONIN I < 0.02 NG/ML (< 0.10)
[2019-04-28] MEDS ORDERED: ACETAMINOPHEN TAB 650MG DOSE (2X325MG) PO ONE (01:45)
[2019-04-28] MEDS ORDERED: NS 1,000 ML IV ONE (01:45)
[2019-04-28] MEDS ORDERED: CIPROFLOXACIN 400 MG in IV 1 EA IV ONE (01:45)
--- NOTE | 2019-04-28 01:53 | REPVR ---
PROCEDURE INFORMATION: Exam: CT Head Without Contrast Exam date and time: 04/28/2019 1:29 AM Clinical history: 73 years old, female; Altered mental status/memory loss; Confusion or disorientation; Additional info: AMS TECHNIQUE: Imaging protocol: Computed tomography of the head without contrast. Radiation optimization: All CT scans at this facility use at least one of these dose optimization techniques: automated exposure control; mA and/or kV adjustment per patient size (includes targeted exams where dose is matched to clinical indication); or iterative reconstruction. COMPARISON: CT Head without contrast 01/07/2019 12:14 AM FINDINGS: Brain: Diffuse mild cerebral age related volume loss. Mild patchy low attenuation in the white matter compatible with mild chronic small vessel ischemic disease. No midline shift, mass, fluid collection, or evidence of hemorrhage. Ventricles: Ventricular enlargement proportional to volume loss. Bones/joints: Unremarkable. No acute fracture. Sinuses: Visualized sinuses are unremarkable. No fluid levels. Mastoid air cells: Visualized mastoid air cells are well aerated. Soft tissues: Unremarkable. IMPRESSION: Mild involutional changes, no acute intracranial abnormality. Electronically signed by: Seth Soria On 04/28/2019 01:53:07 AM
--- NOTE | 2019-04-28 01:56 | REPVR ---
PROCEDURE INFORMATION: Exam: CT Abdomen And Pelvis Without Contrast Exam date and time: 04/28/2019 1:46 AM Clinical history: 73 years old, female; Condition or disease; Kidney or ureter condition; Other: UTI; Additional info: AMS, UTI TECHNIQUE: Imaging protocol: Computed tomography of the abdomen and pelvis without contrast. Radiation optimization: All CT scans at this facility use at least one of these dose optimization techniques: automated exposure control; mA and/or kV adjustment per patient size (includes targeted exams where dose is matched to clinical indication); or iterative reconstruction. COMPARISON: CT ABD PELVIS W/O CONTRAST 08/19/2018 12:11 AM FINDINGS: Limitations: Study is limited by the absence of contrast. Artifact related to patient's arm position limits evaluation. Lungs: Dependent subsegmental pulmonary atelectasis. Liver: Normal. No mass. Gallbladder and bile ducts: Cholecystectomy. Pancreas: Normal. No ductal dilation. Spleen: Normal. No splenomegaly. Adrenals: Normal. No mass. Kidneys and ureters: Lobulated kidneys. Mild perinephric stranding. Stomach and bowel: Moderate diverticulosis coli. Moderate diverticulosis coli. Appendix: No evidence of appendicitis. Intraperitoneal space: Unremarkable. No free air. No significant fluid collection. Vasculature: Mild to moderate aortic and iliac artery atherosclerotic calcification. Lymph nodes: Unremarkable. No enlarged lymph nodes. Bladder: Bladder distention. Reproductive: Hysterectomy. Calcification in the right upper abdomen, likely previous fat necrosis and sequela. Bones/joints: Ossification across L5-S1. Bones are demineralized. Soft tissues: Ventral hernia repair. IMPRESSION: No urolithiasis or hydronephrosis. Lobulated mildly scarred kidneys, with mild perinephric stranding suggesting possible previous bouts of pyelonephritis, correlate with urinalysis. Electronically signed by: Seth Soria On 04/28/2019 01:55:42 AM
[2019-04-28] MEDS ORDERED: PATIENT COMMENTS (02:00)
[2019-04-28] MEDS ORDERED: ACETAMINOPHEN TAB 650MG DOSE (2X325MG) PO PRN (05:00)
[2019-04-28] MEDS ORDERED: MECLIZINE 12.5 MG TAB PO PRN (05:15)
[2019-04-28] MEDS ORDERED: GLUCAGON FOR INJ 1 MG VIAL (J1610) SC PRN (05:15)
[2019-04-28] MEDS ORDERED: DEXTROSE 50% 50 ML SYRINGE IV PRN (05:15)
[2019-04-28] MEDS ORDERED: GLUCOSE 4 GM CHEW TABLET PO PRN (05:15)
--- NOTE | 2019-04-28 05:54 | HPEPDOC ---
General Date of Admission Apr 28, 2019 at 04:55 Date of Service: Apr 28, 2019 Attending Physician: NÉSTOR TOUSSAINT MD Chief Complaint The patient is a 73-year-old female admitted with a reason for visit of Altered Mental State,Uti. Source: Patient Exam Limitations: Dementia Timing/Duration: 24 hours Severity: Moderate Associated Symptoms: Increased agitation History of Present Illness 73-year-old woman with a history of DM, hypothyroidism, dementia, GERD, tobacco use disorder and anxiety who was brought into the emergency room by family after she was noted to be behaving erratically and trying to jump off the porch and also urinating all over the house while visiting her granddaughter. She lives with her daughter and was visiting her granddaughter when her erratic behavior was noted. She has a history of presenting with altered mental status inthe setting of UTIs and pyelonephritis. On questioning, she was irritable and not sure why she was even brought to the hospital, denying any current ongoing illness, pain, dysuria, hematuria, recent fever, chills, nausea, emesis, diarrhea, constipation. On exam she reports that she feels completely fine, reports living in [place] and asking where she is currently. In the ED, she was hemodynamically stable and workup revealed +UA 3+ leuks, 103 WBCs, 6 RBCs, 1+ bacteria with pending culture, WBC 8.2, stable anemia 10.1/31.9, an ABDOUL with Cr elevated to 1.29, with EKG with NSR, troponin and TSH within normal limits. She had a noncontrast CT head with no acute pathology and CT A/P revealed mild fat stranding presumed from prior episodes of pyelonephritis, with no calculi or hydronephrosis. She was empirically given ciprofloxacin and 1L NS. Home Medications Scheduled Aspirin (Aspirin) 325 Mg Tab, 325 MG PO DAILY, (Reported) Bupropion Hcl (Bupropion HCl Sr) 150 Mg Tab.sr.12h, 300 MG PO QAM, (Reported) Bupropion Hcl (Bupropion HCl Sr) 150 Mg Tab.sr.12h, 150 MG PO QPM, (Reported) Calcium Carbonate/Vitamin D3 (Calcium 600-Vit D3 200 Tablet) 1 Tab Tab, 1 TAB PO BID, (Reported) Fluticasone Propionate (Flonase Allergy Relief) 9.9 Ml [place].susp, 2 SPRAY NARES DAILY, (Reported) Garlic (Garlic) 400 Mg Tablet, 400 MG PO DAILY, (Reported) Lansoprazole (Prevacid) 30 Mg Cap, 30 MG PO DAILY, (Reported) Levothyroxine Sodium (Levothyroxine Sodium) 100 Mcg Tab, 100 MCG PO DAILY, (Reported) Lisinopril (Lisinopril) 5 Mg Tablet, 5 MG PO DAILY, (Reported) Metformin HCl (Metformin HCl) 500 Mg Tab, 500 MG PO BID, (Reported) Multivitamin (Daily Chapo) 1 Tab Tab, 1 TAB PO DAILY, (Reported) [place]-3/Dha/Epa/Fish Oil (Fish Oil EC 1,000 mg Softgel) 1 Cap Cap, 1,000 MG PO BID, (Reported) Ranitidine HCl (Ranitidine HCl) 150 Mg Cap, 1 CAP PO BID, (Reported) Tiotropium [place] (Spiriva) 18 Mcg Cap, 1 INHALATION INH DAILY, (Reported) Scheduled PRN Alprazolam (Alprazolam) 1 Mg Tablet, 1 MG PO QID PRN for ANXIETY, (Reported) Hydrocodone/Acetaminophen (Hydrocodone-Acetamin 10-325 mg) 1 Each Tablet, 1 TAB PO Q6H PRN for PAIN, (Reported) Meclizine HCl (Meclizine HCl) 12.5 Mg Tab, 12.5 MG PO BID PRN for DIZZINESS, (Reported) Miscellaneous Medications [Patient Comments] , (Reported) PATIENT UNABLE TO ASSIST WITH MEDICATION RECONCILIATION. UNABLE TO LOCATE RELATIVES. MEDICATIONS LISTS ARE ACTIVE PRESCRIPTIONS AVAILABLE AT HER PHARMACY. Allergies Coded Allergies: [place] (Verified Allergy, Unknown, UNKNOWN, 04/28/19) citalopram (Verified Adverse Reaction, Intermediate, racing heart, 04/28/19) Past Medical History Medical History 1. Diabetes mellitus. 2. Gastroesophageal reflux disease. 3. Depression 4. Active tobacco use 5. Hypothyroidism 6. Chronic pain 7. Anxiety 8. Obstructive lung disease. Surgical History 1. Hysterectomy. 2. . 3. Appendectomy 4. Vocal cord surgery 5. Bladder surgery. Family History Significant Family History: No pertinent family hx Social History * Smoker: current smoker Alcohol: Denies Drugs: denies Recent Travel/Sick Contacts: Denies: Recent travel, Recent sick contacts Psychosocial History: Dementia Lives with: Daughter, Employment: Retired. She worked in a [email or web address], Tobacco use: Active smoker 54 pack years. ETOH: Denies, Illicit drug use: denies. A-FIB/CHADSVASC A-FIB History Current/History of A-Fib/PAF?: No Current PO Anticoag Therapy: No Age/Risk Factor Scoring CHADSVASC: CHADSVASC Response (Comments) Value Age Risk Factor Age >/= 75 years old 2 Gender Risk Factor Female 1 Hx of CHF No 0 Hx of HTN Yes 1 Hx of Stroke/TIA/or VTE No 0 Hx of Diabetes Yes 1 Hx of Vascular Disease Yes 1 Total 6 Treatment Treatment ordered: NONE Reason Anticoagulant not given: Not indicated/[id number] Review of Systems Constitutional: Denies: Chills, Fever, Malaise, Night Sweats, Weakness, Fatigue, Weight Loss, Lethargy Eyes: Denies: Pain, Vision change ENT: Denies: Head Aches, Ear Pain, Dysphagia Skin: Denies: Rash, Lesions, Breakdown Pulmonary: Denies: Dyspnea, Cough Cardiovascular: Denies: Chest Pain, Palpitations, Orthopnea, Paroxysmal Noc. Dyspnea, Lt Headedness Gastrointestinal: Denies: Nausea, Vomiting, Abdominal Pain, Diarrhea Genitourinary: Denies: Dysuria, Frequency, Incontinence, Hematuria, Retention Hematologic: Denies: Bruising, Bleeding Excessively Endocrine: Denies: Polydipsia, Polyphagia, Polyuria, Heat Intolerance, Cold Intolerance, Other Endocrine Sx Musculoskeletal: Denies: Neck Pain, Back Pain, Joint Pain, Muscle Pain, Spasms Neurological: Reports: Confusion; Denies: Weakness, Numbness, Change in speech, Seizures Psych: Reports: Anxiety, Memory Issues Physical Examination General Exam: Positive: Alert, No Acute Distress Eye Exam: Positive: PERRLA, Conjunctiva & lids normal, EOMI; Negative: Sclera icteric ENT Exam: Positive: Atraumatic, Mucous membr. moist/pink, Pharynx Normal Neck Exam: Positive: Supple; Negative: JVD, thyromegaly Chest Exam: Positive: Clear to auscultation, Normal air movement Heart Exam: Positive: Rate Normal, Regular Rhythm, Normal S1, Normal S2; Negative: Murmurs, Rubs Abdomen Exam: Positive: Normal bowel sounds, Soft; Negative: Tenderness, Hepatospenomegaly Extremity Exam: Positive: Normal pulses; Negative: Clubbing, Cyanosis, Edema Skin Exam: Positive: Nl turgor and temperature; Negative: Breakdown, Lesion Neuro Exam: Positive: Normal Speech, Strength at 5/5 X4 ext, Normal Tone, Sensation Intact, Cranial Nerves 3-12 NL, Reflexes 2+ Psych Exam: Positive: Other (confused about why she is here. Can corroborate living in [place]. Otherwise awake on voice and alert ) Vital Signs Vital Signs Date Time Temp Pulse Resp B/P (MAP) Pulse Ox O2 Delivery O2 Flow Rate FiO2 04/28/19 04:30 68 16 116/57 (76) 94 Room Air 04/28/19 02:42 98.1 Laboratory Data Labs 24H Laboratory Tests 2 04/27/19 23:32: Immature Granulocyte % (Auto) 0.2, Neutrophils (%) (Auto) 66.8H, Lymphocytes (%) (Auto) 21.3L, Monocytes (%) (Auto) 8.0H, Eosinophils (%) (Auto) 3.2H, Basophils (%) (Auto) 0.5, Neutrophils # (Auto) 5.5, Lymphocytes # (Auto) 1.8, Monocytes # (Auto) 0.7, Eosinophils # (Auto) 0.3, Basophils # (Auto) 0.0, Nucleated Red Blood Cells % (auto) 0.0, Anion Gap 8, Glomerular Filtration Rate 43.1, Lactic Acid Level 1.3, Calcium Level 9.3, Total Bilirubin 0.2, Direct Bilirubin 0.1, Aspartate Amino Transf (AST/SGOT) 14, Alanine Aminotransferase (ALT/SGPT) 15, Alkaline Phosphatase 69, Total Creatine Kinase 150, Creatine Kinase MB 1.7, Creatine Kinase MB Relative Index 1.13, Troponin I < 0.02, Total Protein 7.7, Albumin 3.1L, Albumin/Globulin Ratio 0.67L, Thyroid Stimulating Hormone (TSH) 0.508 04/28/19 00:36: Urine Color YELLOW, Urine Appearance CLOUDYH, Urine pH 5.0, Urine Specific G ravity 1.008, Urine Protein NEGATIVE, Urine Glucose (UA) NEGATIVE, Urine Ketones NEGATIVE, Urine Blood 1+H, Urine Nitrite NEGATIVE, Urine Bilirubin NEGATIVE, Urine Urobilinogen 0.2, Urine Leukocyte Esterase 3+H, Urine WBC (Auto) 103H, Urine RBC (Auto) 5H, Urine Hyaline Casts (Auto) 0, Urine Bacteria (Auto) 1+H, Urine Squamous Epithelial Cells 0, Urine Transitional Epithelial Cells 1, Urine Mucus (Auto) SMALL, Urine Sperm (Auto) CBC/BMP Laboratory Tests 04/27/19 23:32 Microbiology Microbiology 04/28/19 Urine Culture, Received Pending 04/28/19 Blood Culture, Received Pending 04/27/19 Blood Culture, Received Pending Assessment/Plan 73-year-old woman with DM and dementia who is admitted with acute metabolic encephalopathy secondary to cystitis. Plan: 1. Acute metabolic encephalopathy secondary to urinary tract infection: +UA, mild perinephric stranding presumed from prior episodes of pyelonephritis, and with presentation quite similar to her last two presentations. -Previously grew pansensitive E. coli and will treat her empirically with ceftriaxone and Tylenol gentle IV fluids. s/p cipro x1 dose in the ED -Her mental status already appears to be improving when compared to the report given by the ED on initial presentation. -Appears fragile and with the degree of dementia and ongoing encephalopathy will consult PT/OT to assess if additional services may be needed at home. -Follow up urine culture and adjust antibiotics as indicated 2. ABDOUL: Likely prerenal. s/p 1L NS inthe ED, recheck BMP this morning and if worsening to check urine lytes. 3. Diabetes: Insulin sliding scale hold her home metformin. FSBG ACHS, hypoglycemia protocol 4.Gastroesophageal reflux disease: Replace home lansoprazole with omeprazole, continue ranitidine 5. Allergic rhinitis: Continue home Flonase 6. Hypothyroidism: Continue home levothyroxine 7. Hypertension: Continue home lisinopril 8. Vertigo: Continue with meclizine PRN. No current report of vertigo 9. Anxiety: Continue home alprazolam and bupropion 10. Chronic pain: hydrocodone/APAP per home regimen 11. Active tobacco abuse: Cessation counseling provided DVT PROPHYLAXIS: Lovenox, dose adjusted for ongoing ABDOUL. [facility] / VTE VTE Prophylaxis Ordered?: Yes NÉSTOR TOUSSAINT MD Apr 28, 2019 05:54
[2019-04-28] MEDS: LEVOTHYROXINE 100MCG TABLET (0.1MG) PO SCH (06:17)
[2019-04-28] MEDS: cefTRIAXone SOD 1 GM in D5W MINI-BAG PLUS 50 ML IV SCH (06:17)
--- NOTE | 2019-04-28 07:56 | ECGEPIP ---
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
[2019-04-28] MEDS: TIOTROPIUM INHALER/CAPSULE (SPIRIVA) INH SCH (08:30)
[2019-04-28 08:34] LABS: HEMATOCRIT 29.6 % (36.0-47.0); HEMOGLOBIN 9.2 g/dl (12.0-15.5); MEAN CORPUSCULAR HEMOGLOBIN 28.4 pg (27.0-33.0); MEAN CORPUSCULAR HGB CONC 31.1 g/dl (32.0-36.5); MEAN CORPUSCULAR VOLUME 91.4 fl (80.0-96.0); PLATELET COUNT, AUTOMATED 235 10^3/uL (150-450); RED BLOOD COUNT 3.24 10^6/uL (4.00-5.40); WHITE BLOOD COUNT 6.7 10^3/uL (4.0-10.0)
[2019-04-28] MEDS: HumaLOG INSULIN (NovoLOG) PER UNIT SC SCH ×4 (08:51→20:57)
[2019-04-28] MEDS: ASPIRIN 325 MG TAB PO SCH (08:54)
[2019-04-28] MEDS: buPROPion **SR TABLET** (ZYBAN) 150MG PO SCH ×2 (08:55→20:55)
[2019-04-28] MEDS: FAMOTIDINE 20 MG TAB PO SCH ×2 (08:56→20:55)
[2019-04-28] MEDS: LISINOPRIL 5 MG TAB PO SCH (08:57)
[2019-04-28] MEDS: ENOXAPARIN 30 MG/0.3 ML SYR (J1650) SC SCH (09:01)
[2019-04-28 09:03] LABS: CREATININE FOR GFR 1.24 MG/DL (0.55-1.30); GLOMERULAR FILTRATION RATE 45.1 (>39)
--- NOTE | 2019-04-28 09:10 | REP ---
Portable chest x-ray: Sitting AP view. History: Altered mental status. Comparison study: January 06, 2019. Findings: There is a granulomatous calcification in the left base as before. Right and left apical pleuroparenchymal fibrosis is seen mild in degree. Lungs are otherwise clear. Pleural angles are sharp. Heart size is normal. There are is no significant bony abnormality. Impression: No acute disease. Electronically Signed by Landen Dahl MD 04/28/2019 09:02 A
[2019-04-28] MEDS: ALPRAZolam 0.5 MG TAB PO PRN ×2 (13:44→19:44)
[2019-04-28] MEDS: ANEXSIA, NORCO 7.5MG/325MG TABLET(HYDROCODONE/APAP) PO PRN ×2 (13:45→19:45)
[2019-04-28] MEDS: FLUTICASONE PROP 0.05% NASAL SPRAY 16 GM (FLONASE) NARES SCH (14:49)
[2019-04-28] MEDS: OMEGA-3 1000MG CAPSULE PO SCH ×2 (14:51→20:55)
[2019-04-28 22:00] VITALS: BP 137/72
[2019-04-29 06:00] VITALS: BP 136/70
[2019-04-29] MEDS: LEVOTHYROXINE 100MCG TABLET (0.1MG) PO SCH (06:14)
[2019-04-29] MEDS: cefTRIAXone SOD 1 GM in D5W MINI-BAG PLUS 50 ML IV SCH (06:14)
[2019-04-29 06:34] LABS: CALCIUM LEVEL 9.3 MG/DL (8.8-10.2); CREATININE FOR GFR 1.22 MG/DL (0.55-1.30); MAGNESIUM LEVEL 1.6 MG/DL (1.8-2.4); POTASSIUM SERUM 4.9 MEQ/L (3.5-5.1)
[2019-04-29] MEDS: ANEXSIA, NORCO 7.5MG/325MG TABLET(HYDROCODONE/APAP) PO PRN ×3 (06:59→18:10)
[2019-04-29] MEDS: ALPRAZolam 0.5 MG TAB PO PRN ×3 (07:00→18:10)
[2019-04-29] MEDS: TIOTROPIUM INHALER/CAPSULE (SPIRIVA) INH SCH (07:23)
[2019-04-29] MEDS: HumaLOG INSULIN (NovoLOG) PER UNIT SC SCH ×4 (07:30→21:00)
[2019-04-29 08:04] LABS: BASO % 0.5 % (0.0-1.0); EOS # 0.4 10^3/uL (0.0-0.5); EOS % 7.5 % (0.0-3.0); HEMATOCRIT 28.7 % (36.0-47.0); HEMOGLOBIN 9.1 g/dl (12.0-15.5); LYMPH # 1.8 10^3/uL (1.5-5.0); LYMPH % 31.9 % (24.0-44.0); MEAN CORPUSCULAR HEMOGLOBIN 29.1 pg (27.0-33.0); MEAN CORPUSCULAR HGB CONC 31.7 g/dl (32.0-36.5); MEAN CORPUSCULAR VOLUME 91.7 fl (80.0-96.0); MONO # 0.8 10^3/uL (0.0-0.8); MONO % 13.6 % (0.0-5.0); NEUTROPHILS # 2.6 10^3/uL (1.5-8.5); NEUTROPHILS % 46.2 % (36.0-66.0); PLATELET COUNT, AUTOMATED 258 10^3/uL (150-450); RED BLOOD COUNT 3.13 10^6/uL (4.00-5.40); WHITE BLOOD COUNT 5.7 10^3/uL (4.0-10.0)
[2019-04-29] MEDS: MAG SULF 1GM/100ML (MAG RUN) 1 GM in IV 1 EA IV SCH ×2 (08:52→08:57)
[2019-04-29] MEDS: ASPIRIN 325 MG TAB PO SCH (08:53)
[2019-04-29] MEDS: FAMOTIDINE 20 MG TAB PO SCH ×2 (08:53→21:44)
[2019-04-29] MEDS: OMEGA-3 1000MG CAPSULE PO SCH ×2 (08:53→21:44)
[2019-04-29] MEDS: buPROPion **SR TABLET** (ZYBAN) 150MG PO SCH ×2 (08:53→21:44)
[2019-04-29] MEDS: LISINOPRIL 5 MG TAB PO SCH (08:54)
[2019-04-29] MEDS: ENOXAPARIN 30 MG/0.3 ML SYR (J1650) SC SCH (08:55)
[2019-04-29] MEDS: FLUTICASONE PROP 0.05% NASAL SPRAY 16 GM (FLONASE) NARES SCH (08:56)
--- NOTE | 2019-04-29 13:00 | IPNPDOC ---
Text Note Date of Service The patient was seen on 04/29/19. NOTE Subjective: Patient is a 73-year-old female with a PMHx of Dementia, COPD, Tobacco abuse, DM2, Hypothyroidism, Anxiety, GERD who presented to the ER with confusion. Patient was found to have an abnormal UA, CT abdomen revealed small amount of fat stranding around kidney. She was admitted to the hospitalist service for suspected UTI. Patient was seen and examined at the bedside. Currently patient reports that she is doing well. She denies nausea, vomiting, abdominal pain, constipation, diarrhea. Patient is anxious to get home. Objective: Vitals (See below) General: Lying in bed, no acute distress, comfortable, Awake / Alert HEENT: NC, AT CVS: RRR, +S1S2 Lungs: Fair air entry b/l, -w/r/r Abdomen: Soft, ND, NT Extremities: - Edema, - Calf tenderness Assessment and plan: Acute metabolic encephalopathy - likely 2/2 UTI - Presented to the ER after having confusion at home - A she remained hemodynamically stable and afebrile - Urinalysis is consistent with infection; urine culture remains pending - Physical without any significant findings - c/w Ceftriaxone ABDOUL - s/p Normal saline IDDM - c/w ISS, [place] 3 fatty acids Allergic rhinitis - c/we Flonase Hypothyroidism: - c/w Levothyroxine Hypertension - c/w Lisinopril Vertigo - c/w Meclizine Anxiety / Depression - c/w Escitalopram, Ativan Chronic pain - c/w Hydrocodone and AP per home regimen Active tobacco abuse - Advised smoking cessation DVT prophylaxis - c/w full anticoagulation Xarelto Disposition: - Awaiting culture results VS,Sukumar, I+O VS, Sukumar, I+O Laboratory Tests 04/29/19 05:55 Vital Signs Date Time Temp Pulse Resp B/P (MAP) Pulse Ox O2 Delivery O2 Flow Rate FiO2 04/29/19 08:54 136/70 04/29/19 07:29 18 Room Air 04/29/19 06:00 98.4 77 94 I&O- Last 24 Hours up to 6 AM 04/29/19 06:00 Intake Total 410 ml Output Total 200 ml Balance 210 ml GABI STYLES MD Apr 29, 2019 13:00
[2019-04-29 14:00] VITALS: BP 131/64
[2019-04-29] MEDS ORDERED: QUEtiapine FUMARATE 25 MG TAB PO ONE (21:00)
--- NOTE | 2019-04-29 22:08 | IPNPDOC ---
Text Note Date of Service The patient was seen on 04/29/19. NOTE Had code 25 at 8PM with agitation and demanding discharge. Called by nursing to bedside, patient recently visited with daughter and after she left patient reported that her daughter uses illicit drugs and she care for grandchildren and needs to be discharged now. Tried redirecting but she became teary and verbally frustrated. Asked her about her specific discharge plan that was not coherent reporting that she would take a cab to a hotel for the night and return tomorrow. Told her that this would be best done during the day time and that she is being treated for UTI with IV antibiotics but reports that she feels "fine." Ordered Seroquel 25mg and was sometimes redirectable but at this time making suicidal comments saying she will go home and will stab herself when she gets there and that she wants to kill herself. Now placed on suicide precautions. VS,Fishbone, I+O VS, Fishbone, I+O Laboratory Tests 04/29/19 05:55 Vital Signs Date Time Temp Pulse Resp B/P (MAP) Pulse Ox O2 Delivery O2 Flow Rate FiO2 04/29/19 18:40 18 Room Air 04/29/19 14:00 97.8 70 131/64 (86) 97 I&O- Last 24 Hours up to 6 AM 04/29/19 06:00 Intake Total 410 ml Output Total 200 ml Balance 210 ml NÉSTOR TOUSSAINT MD Apr 29, 2019 22:07
[2019-04-30] MEDS: LEVOTHYROXINE 100MCG TABLET (0.1MG) PO SCH (06:23)
[2019-04-30] MEDS: cefTRIAXone SOD 1 GM in D5W MINI-BAG PLUS 50 ML IV SCH (06:24)
[2019-04-30] MEDS: HumaLOG INSULIN (NovoLOG) PER UNIT SC SCH ×2 (07:30→12:00)
[2019-04-30] MEDS: TIOTROPIUM INHALER/CAPSULE (SPIRIVA) INH SCH (08:00)
[2019-04-30 09:00] VITALS: BP 136/70
[2019-04-30] MEDS: FAMOTIDINE 20 MG TAB PO SCH (09:00)
[2019-04-30] MEDS: FLUTICASONE PROP 0.05% NASAL SPRAY 16 GM (FLONASE) NARES SCH (09:00)
[2019-04-30] MEDS: buPROPion **SR TABLET** (ZYBAN) 150MG PO SCH (09:00)
[2019-04-30] MEDS: ASPIRIN 325 MG TAB PO SCH (09:00)
[2019-04-30] MEDS: LISINOPRIL 5 MG TAB PO SCH (09:00)
[2019-04-30] MEDS: OMEGA-3 1000MG CAPSULE PO SCH (09:00)
[2019-04-30] MEDS: ENOXAPARIN 30 MG/0.3 ML SYR (J1650) SC SCH (09:00)
[2019-04-30] MEDS ORDERED: ALPRAZolam 0.5 MG TAB PO PRN (12:00)
[2019-04-30] MEDS ORDERED: CEFD1CAP8 PO (12:39)
--- NOTE | 2019-05-02 05:54 | DS.PDOC ---
Discharge Summary General Date of Admission Apr 28, 2019 at 04:55 Date of Discharge 04/30/19 Discharge Summary PROCEDURES PERFORMED DURING STAY: [None]. DISCHARGE DIAGNOSES: Acute metabolic Encephalopathy due to UTi UTI due to klebsiella ABDOUL Dementia Diabetes Hypertension Hypothyroid GERD Tobacco use / COPD COMPLICATIONS/CHIEF COMPLAINT: Altered Mental State,Uti. HISTORY OF PRESENT ILLNESS: See History and physical HOSPITAL COURSE: 73-year-old woman with a history of DM, hypothyroidism, hypertension, dementia, GERD, tobacco use disorder ? COPD and anxiety who was brought into the emergency room by family after she was noted to be behaving erratically and trying to jump off the porch and also urinating all over the house while visiting her granddaughter. She lives with her daughter and was visiting her granddaughter when her erratic behavior was noted. She has a history of presenting with altered mental status in the setting of UTIs and pyelonephritis. On questioning, she was irritable and not sure why she was even brought to the hospital. In the ED, she was hemodynamically stable and workup revealed +UA 3+ leuks, 103 WBCs, 6 RBCs, 1+ bacteria with pending culture, WBC 8.2, stable anemia 10.1/31.9, an ABDOUL with Cr elevated to 1.29, with EKG with NSR, troponin and TSH within normal limits. She had a noncontrast CT head with no acute pathology and CT A/P revealed mild fat stranding presumed from prior episodes of pyelo nephritis. She was admitted with acute metabolic encephalopathy on the background of dementia due to urinary tract infection. Acute metabolic encephalopathy on the back ground of Dementia- 2/2 UTI Presented to the ER after having confusion at home In hospital she was easily agitated, more during the night demanding to go home commentated that she was going to stab herself after she goes home so she was on one to one watch . However this morning she was calmer though still demanding to go home. Says this is not her home and that we are keeping her imprisoned here. She remains confused regarding place and time and day. On repeated redirection also she cannot remember where she is. she however denied any suicidal ideas . Says she just wants to go home . After her granddaughter arrived she calmed down much more and was really eager to go home. Patient was going to stay with grand daughter who is at home 24x 7. She has few hours of home health aid. However patient needs 24x7 supervision and would benefit for increased hours of home health aid Urinalysis is consistent with infection Physical without any significant findings UTI Klebsiella pneumoniae treated with ceftriaxone in hospital will finish cefdinir course. ABDOUL improving Dementia with sun downing. Very confused and agitated at night. In the day also not oriented to place or time or day. However it varies from time to time. Difficult to redirect her from her set ideas. Family eager to take her home says she fairs much better in known surroundings. Patient needs 24x7 supervision. She will currently stay with granddaughter who stays at home. However She would benefit from increased hours of home health aid. continue with buproprion, ativan, escitalopram IDDM restarted metformin Allergic rhinitis c/we Flonase Hypothyroidism: c/w Levothyroxine Hypertension c/w Lisinopril Vertigo c/w Meclizine Anxiety / Depression c/w Escitalopram, Ativan Chronic pain c/w Hydrocodone and AP per home regimen Active tobacco abuse/ COPD Advised smoking cessation continue spiriva GERD lansoprazole DISCHARGE MEDICATIONS: Please see below. ALLERGIES: Please see below. PHYSICAL EXAMINATION ON DISCHARGE: VITAL SIGNS: Please see below. General: Lying in bed, no acute distress, comfortable, Awake / Alert however ea sily gets agitated HEENT: NC, AT, moist mucus membranes. CVS: RRR, +S1S2 Lungs: Fair air entry b/l, -w/r/r Abdomen: Soft, ND, NT Extremities: - Edema, No Calf tenderness LABORATORY DATA: Please see below. ACTIVITY: [As tolerated]. DIET: Carb consistent DISCHARGE PLAN: Home DISPOSITION: 01 Home, Self-Care. DISCHARGE INSTRUCTIONS: Follow up PMD in 1 week DISCHARGE CONDITION: [Stable]. TIME SPENT ON DISCHARGE: 35 minutes. Vital Signs/I&Os Vital Signs Date Time Temp Pulse Resp B/P (MAP) Pulse Ox O2 Delivery O2 Flow Rate FiO2 04/30/19 09:00 136/70 04/29/19 18:40 18 Room Air 04/29/19 14:00 97.8 70 97 Laboratory Data CBC/BMP Item Value Date Time White Blood Count 5.7 10^3/uL 04/29/19 0555 Red Blood Count 3.13 10^6/uL L 04/29/19 0555 Hemoglobin 9.1 g/dl L 04/29/19 05 Hematocrit 28.7 % L 04/29/19 05 Mean Corpuscular Volume 91.7 fl 04/29/19 05 Mean Corpuscular Hemoglobin 29.1 pg 04/29/19 05 Mean Corpuscular Hemoglobin Concent 31.7 g/dl L 04/29/19 05 Red Cell Distribution Width 14.0 % 04/29/19 05 Platelet Count 258 10^3/uL 04/29/19 0555 Immature Granulocyte % (Auto) 0.3 % 04/29/19 05 Neutrophils (%) (Auto) 46.2 % 04/29/19 05 Lymphocytes (%) (Auto) 31.9 % 04/29/19 05 Monocytes (%) (Auto) 13.6 % H 04/29/19 05 Eosinophils (%) (Auto) 7.5 % H 04/29/19 05 Basophils (%) (Auto) 0.5 % 04/29/19 05 Neutrophils # (Auto) 2.6 10^3/uL 04/29/19 0555 Lymphocytes # (Auto) 1.8 10^3/uL 04/29/19 0555 Monocytes # (Auto) 0.8 10^3/uL 04/29/19 0555 Eosinophils # (Auto) 0.4 10^3/uL 04/29/19 0555 Basophils # (Auto) 0.0 10^3/uL 04/29/19 0555 Nucleated Red Blood Cells % (auto) 0.0 % 04/29/19 05 Sodium Level 141 MEQ/L 04/29/19 0555 Potassium Level 4.9 MEQ/L 04/29/19 0555 Chloride Level 111 MEQ/L H 04/29/19 0555 Carbon Dioxide Level 27 MEQ/L 04/29/19 0555 Anion Gap 3 MEQ/L L 04/29/19 05 Blood Urea Nitrogen 25 MG/DL H 04/29/19 05 Creatinine 1.22 MG/DL 04/29/19 05 Glomerular Filtration Rate 46.0 04/29/19 05 Fasting Glucose 95 MG/DL 04/29/19 05 Calcium Level 9.3 MG/DL 04/29/19 05 Magnesium Level 1.6 MG/DL L 04/29/19 05 Microbiology Microbiology 04/28/19 Urine Culture - Final, Complete Klebsiella Pneumoniae 04/28/19 Blood Culture - Preliminary, Resulted No Growth after 72 hours. All specime... 04/27/19 Blood Culture - Preliminary, Resulted No Growth after 72 hours. All specime... Discharge Medications Scheduled Aspirin (Aspirin) 325 Mg Tab, 325 MG PO DAILY, (Reported) Bupropion Hcl (Bupropion HCl Sr) 150 Mg Tab.sr.12h, 300 MG PO QAM, (Reported) Bupropion Hcl (Bupropion HCl Sr) 150 Mg Tab.sr.12h, 150 MG PO QPM, (Reported) Calcium Carbonate/Vitamin D3 (Calcium 600-Vit D3 200 Tablet) 1 Tab Tab, 1 TAB PO BID, (Reported) Cefdinir (Cefdinir) 300 Mg Capsule, 300 MG PO BID Fluticasone Propionate (Flonase Allergy Relief) 9.9 Ml Fine.susp, 2 SPRAY NARES DAILY, (Reported) Garlic (Garlic) 400 Mg Tablet, 400 MG PO DAILY, (Reported) Lansoprazole (Prevacid) 30 Mg Cap, 30 MG PO DAILY, (Reported) Levothyroxine Sodium (Levothyroxine Sodium) 100 Mcg Tab, 100 MCG PO DAILY, (Reported) Lisinopril (Lisinopril) 5 Mg Tablet, 5 MG PO DAILY, (Reported) Metformin HCl (Metformin HCl) 500 Mg Tab, 500 MG PO BID, (Reported) Multivitamin (Daily Chapo) 1 Tab Tab, 1 TAB PO DAILY, (Reported) Sandy-3/Dha/Epa/Fish Oil (Fish Oil EC 1,000 mg Softgel) 1 Cap Cap, 1,000 MG PO BID, (Reported) Ranitidine HCl (Ranitidine HCl) 150 Mg Cap, 1 CAP PO BID, (Reported) Tiotropium [place] (Spiriva) 18 Mcg Cap, 1 INHALATION INH DAILY, (Reported) Scheduled PRN Alprazolam (Alprazolam) 1 Mg Tablet, 1 MG PO QID PRN for ANXIETY, (Reported) Hydrocodone/Acetaminophen (Hydrocodone-Acetamin 10-325 mg) 1 Each Tablet, 1 TAB PO Q6H PRN for PAIN, (Reported) Meclizine HCl (Meclizine HCl) 12.5 Mg Tab, 12.5 MG PO BID PRN for DIZZINESS, (Reported) Miscellaneous Medications [Patient Comments] , (Reported) PATIENT UNABLE TO ASSIST WITH MEDICATION RECONCILIATION. UNABLE TO LOCATE RELATIVES. MEDICATIONS LISTS ARE ACTIVE PRESCRIPTIONS AVAILABLE AT HER [facility] [employer]. Allergies Coded Allergies: Scallop (Verified Allergy, Unknown, UNKNOWN, 04/28/19) citalopram (Verified Adverse Reaction, Intermediate, racing heart, 04/28/19) JUANJOSE HERNÁNDEZ MD May 02, 2019 05:54
== END 2019-04-30 15:03 | disposition home or self-care (01) | DRG 689 ==
LOC: M ED 23:09 → M ED INP 04-28 04:55 → M MS5PR 04-28 12:29
PROVIDERS: ADMIT Internal Medicine; ATTEND Internal Medicine Nephrology
DX: N39.0 Urinary tract infection, site not specified (principal); G93.41 Metabolic encephalopathy; N17.9 Acute kidney failure, unspecified; F03.90 Unspecified dementia, unspecified severity, without behavioral disturbance, psychotic disturbance, mood disturbance, and anxiety; F17.200 Nicotine dependence, unspecified, uncomplicated; J44.9 Chronic obstructive pulmonary disease, unspecified; E11.9 Type 2 diabetes mellitus without complications; I10 Essential (primary) hypertension; B96.1 Klebsiella pneumoniae [K. pneumoniae] as the cause of diseases classified elsewhere; E03.9 Hypothyroidism, unspecified; K21.9 Gastro-esophageal reflux disease without esophagitis; F41.9 Anxiety disorder, unspecified; F32.9 Major depressive disorder, single episode, unspecified; G89.29 Other chronic pain; R42 Dizziness and giddiness; Z79.82 Long term (current) use of aspirin; Z79.899 Other long term (current) drug therapy; Z88.8 Allergy status to other drugs, medicaments and biological substances; Z91.013 Allergy to seafood

== ENCOUNTER → 2019-09-30 | Outpatient (REF) | payer MEDICARE, MEDICAID ==
[~2019-09-30] MED LIST changes: +CEFD1CAP8 PO; -MECL12.575 PO; +MECL12.589 PO
== END ==
LOC: M SFHCCLAY 13:40
PROVIDERS: ATTEND Family Medicine
DX: N30.90 Cystitis, unspecified without hematuria (principal)
CPT/HCPCS: 81002; 87088; 87186; G0463

== ENCOUNTER → 2019-10-23 | Outpatient (CLI) | payer MEDICARE, MEDICAID ==
--- NOTE | 2019-10-24 03:15 | REP ---
Clinical: Right hip pain. Technique: Neutral and frog lateral views of the right hip. Findings: Age-related changes are noted including increased sclerosis along the acetabular roof with joint space narrowing and subtle acetabular spurring. No acute or healed injury appreciated. No significant periarticular loose bodies identified. Impression: Presumed age-related arthritic changes. Electronically Signed by Eric Ko MD 10/24/2019 03:06 A
== END ==
LOC: M CLY 13:00
PROVIDERS: ATTEND Family Medicine
DX: M16.11 Unilateral primary osteoarthritis, right hip (principal); M25.551 Pain in right hip; E11.9 Type 2 diabetes mellitus without complications; E03.9 Hypothyroidism, unspecified

== ENCOUNTER → 2019-10-23 | Outpatient (REF) | payer MEDICARE, MEDICAID ==
[2019-10-23 16:32] LABS: BASO % 0.5 % (0.0-1.0); EOS # 0.2 10^3/uL (0.0-0.5); HEMATOCRIT 32.4 % (36.0-47.0); HEMOGLOBIN 9.9 g/dl (12.0-15.5); LYMPH % 40.1 % (24.0-44.0); MEAN CORPUSCULAR HEMOGLOBIN 27.7 pg (27.0-33.0); MEAN CORPUSCULAR HGB CONC 30.6 g/dl (32.0-36.5); MEAN CORPUSCULAR VOLUME 90.8 fl (80.0-96.0); MONO # 0.8 10^3/uL (0.0-0.8); NEUTROPHILS # 3.5 10^3/uL (1.5-8.5); NEUTROPHILS % 47.1 % (36.0-66.0); PLATELET COUNT, AUTOMATED 247 10^3/uL (150-450); RED BLOOD COUNT 3.57 10^6/uL (4.00-5.40); WHITE BLOOD COUNT 7.5 10^3/uL (4.0-10.0)
[2019-10-23 16:46] LABS: HEMOGLOBIN A1c 6.4 %
[2019-10-23 16:50] LABS: ALBUMIN 3.2 GM/DL (3.2-5.2); ALT/SGPT 17 U/L (12-78); BILIRUBIN,TOTAL 0.3 MG/DL (0.2-1.0); BLOOD UREA NITROGEN 23 MG/DL (7-18); CALCIUM LEVEL 9.4 MG/DL (8.8-10.2); CARBON DIOXIDE LEVEL 30 MEQ/L (21-32); CHLORIDE LEVEL 106 MEQ/L (98-107); CREATININE FOR GFR 0.89 MG/DL (0.55-1.30); FREE T4 1.54 NG/DL (0.76-1.46); GLOMERULAR FILTRATION RATE > 60.0 (>39); GLUCOSE, FASTING 90 MG/DL (70-100); POTASSIUM SERUM 4.8 MEQ/L (3.5-5.1); SODIUM LEVEL 139 MEQ/L (136-145); THYROID STIMULATING HORMONE 0.075 uIU/ML (0.358-3.740); TOTAL PROTEIN 7.5 GM/DL (6.4-8.2)
[2019-10-23 17:21] LABS: ERYTHROCYTE SEDIMENTATION RATE 53 mm/hr (0-30)
== END ==
LOC: M SFHCCLAY 12:50
PROVIDERS: ATTEND Family Medicine
DX: E11.9 Type 2 diabetes mellitus without complications (principal); E03.9 Hypothyroidism, unspecified; M25.551 Pain in right hip

== ENCOUNTER → 2019-11-29 | Outpatient (REF) | payer MEDICARE, MEDICAID | LOC: M SFHCCLAY 11:24 | PROVIDERS: ATTEND Family Medicine | DX: N39.0 Urinary tract infection, site not specified (principal) | CPT/HCPCS: 81002; 87088; 87186; G0463 ==

== ENCOUNTER → 2020-01-01 | Outpatient (REF) | payer MEDICARE, MEDICAID ==
[2020-01-01 16:35] LABS: APPEARANCE, URINE CLOUDY (CLEAR); BACTERIA, URINE AUTO 1+ (NEGATIVE); BILIRUBIN, URINE AUTO NEGATIVE (NEGATIVE); BLOOD, URINE BLOOD 1+ (NEGATIVE); COLOR, URINE YELLOW (YELLOW); GLUCOSE, URINE (UA) AUTO NEGATIVE (NEGATIVE); KETONE, URINE AUTO NEGATIVE (NEGATIVE); LEUKOCYTE ESTERASE, URINE AUTO 3+ (NEGATIVE); NITRITE, URINE AUTO POSITIVE (NEGATIVE); PROTEIN, URINE AUTO NEGATIVE (NEGATIVE); RBC, URINE AUTO 2 /HPF (0-3); SPECIFIC GRAVITY URINE AUTO 1.004 (1.002-1.035); SQUAMOUS EPITHELIAL CELL UR AU 0 /HPF (0-6); UROBILINOGEN, URINE AUTO 0.2 mg/dL (0.0-2.0); WBC, URINE AUTO TNTC /HPF (0-3)
== END ==
LOC: M SFHCCLAY 13:29
PROVIDERS: ATTEND Family Medicine
DX: N39.0 Urinary tract infection, site not specified (principal); M54.12 Radiculopathy, cervical region
CPT/HCPCS: 81001; 81002; 87088; 87186; G0463

== ENCOUNTER → 2020-04-08 | Outpatient (CLI) | payer MEDICARE, MEDICAID ==
--- NOTE | 2020-04-08 15:34 | REPMRS ---
Patient History The patient states she has not had a clinical breast exam in over a year. No known family history of cancer. No Hormone Replacement Therapy 3D TOMOSYNTHESIS WAS PERFORMED. The [facility] lifetime risk for breast cancer is 3.1%. [place] density b. Digital Woman Screen Mammo: April 08, 2020 - Exam #: [id number] Bilateral CC and MLO view(s) were taken. Technologist: Cheryl Houston, RT No prior studies available for comparison. FINDINGS: There are scattered fibroglandular densities. There is a mild amount of residual fibroglandular tissue which is fairly symmetric. There is no dominant mass, architectural distortion, or clustered microcalcification suggestive of malignancy. Assessment: BI-RADS/ACR category 1 mammogram. Negative Mammogram. Recommendation Routine screening mammogram in 1 year (for women over age 40). This mammogram was interpreted with the aid of an FDA-approved computer-aided dectection system. Electronically Signed By: Andrew Mccall MD 04/08/20 [id number]
== END ==
LOC: M WHC 14:22
PROVIDERS: ATTEND Family Medicine
DX: Z12.31 Encounter for screening mammogram for malignant neoplasm of breast (principal)

== ENCOUNTER → 2020-04-09 | Outpatient (REF) | payer MEDICARE, MEDICAID ==
[2020-04-09 21:21] LABS: APPEARANCE, URINE CLOUDY (CLEAR); BACTERIA, URINE AUTO 2+ (NEGATIVE); BILIRUBIN, URINE AUTO NEGATIVE (NEGATIVE); BLOOD, URINE BLOOD NEGATIVE (NEGATIVE); COLOR, URINE YELLOW (YELLOW); GLUCOSE, URINE (UA) AUTO NEGATIVE (NEGATIVE); KETONE, URINE AUTO NEGATIVE (NEGATIVE); LEUKOCYTE ESTERASE, URINE AUTO 3+ (NEGATIVE); MUCUS, URINE SMALL (NEGATIVE); NITRITE, URINE AUTO NEGATIVE (NEGATIVE); PROTEIN, URINE AUTO NEGATIVE (NEGATIVE); RBC, URINE AUTO 4 /HPF (0-3); SPECIFIC GRAVITY URINE AUTO 1.004 (1.002-1.035); SQUAMOUS EPITHELIAL CELL UR AU 3 /HPF (0-6); TRANSITIONAL EPITHELIAL AUTO <1 /HPF; UROBILINOGEN, URINE AUTO 0.2 mg/dL (0.0-2.0); WBC, URINE AUTO TNTC /HPF (0-3)
== END ==
LOC: M LAB REF 21:02
PROVIDERS: ATTEND Physician Assistant
DX: N39.0 Urinary tract infection, site not specified (principal)

== ENCOUNTER → 2020-06-11 | Outpatient (CLI) | payer MEDICARE, MEDICAID ==
[~2020-06-11] MED LIST changes: -MECL12.589 PO; +MECL12.590 PO
--- NOTE | 2020-06-12 07:07 | REP ---
INDICATION: RT SHOULDER PAIN COMPARISON: None. TECHNIQUE: Internal rotation, external rotation, and Y view. FINDINGS: Mild/moderate arthritic changes at the acromioclavicular joint include cortical irregularity osteophytic spurring. The calcified glenoid rim demonstrates subtle cortical irregularity. Small spurring along the inferior margin of the glenoid rim and humeral head are suggested. The subacromial space is normal. There is no evidence for acute or healed injury. IMPRESSION: Age-related osteopenia and mild/early moderate arthritic changes. <Electronically signed by Eric Ko > 06/12/20 [id number]
--- NOTE | 2020-06-12 07:10 | REP ---
INDICATION: CHRONIC PAIN COMPARISON: None. TECHNIQUE: Frontal view of the chest with multiple views of the right hemithorax. FINDINGS: Frontal view of the chest demonstrates apical scarring and subtle ill-defined opacity in the right lung apex along with diffuse chronic changes. Multiple views of the right hemithorax demonstrates relatively normal ribs without evidence for acute or healed injury and no obvious pathology. IMPRESSION: 1. Normal appearance of the ribs without obvious acute injury or pathology. 2. Frontal view of the chest demonstrates biapical scarring and somewhat ill-defined opacity at the right apex. Chest CT may be warranted for further investigation. <Electronically signed by Eric Ko > 06/12/20 0706
== END ==
LOC: M CLY 10:00
PROVIDERS: ATTEND Family Medicine
DX: M85.811 Other specified disorders of bone density and structure, right shoulder (principal); M19.011 Primary osteoarthritis, right shoulder; M25.511 Pain in right shoulder; G89.29 Other chronic pain
CPT/HCPCS: 71101; 73030; 80053; 82550; 84165; 85652; 86200; G0463

== ENCOUNTER → 2020-06-11 | Outpatient (REF) | payer MEDICARE, MEDICAID ==
[2020-06-11 19:25] LABS: ALBUMIN 3.5 GM/DL (3.2-5.2); BILIRUBIN,TOTAL 0.4 MG/DL (0.2-1.0); CALCIUM LEVEL 9.6 MG/DL (8.8-10.2); CREATININE FOR GFR 0.98 MG/DL (0.55-1.30); GLOMERULAR FILTRATION RATE 59.1 (>39); POTASSIUM SERUM 4.6 MEQ/L (3.5-5.1); TOTAL PROTEIN 7.6 GM/DL (6.4-8.2)
== END ==
LOC: M SFHCCLAY 09:36
PROVIDERS: ATTEND Family Medicine
DX: E03.9 Hypothyroidism, unspecified (principal); E11.9 Type 2 diabetes mellitus without complications; M25.511 Pain in right shoulder; G89.29 Other chronic pain

== ENCOUNTER → 2020-07-21 | Outpatient (REF) | payer MEDICARE, MEDICAID | LOC: M SFHCCLAY 12:12 | PROVIDERS: ATTEND Family Medicine | DX: N30.00 Acute cystitis without hematuria (principal); E11.9 Type 2 diabetes mellitus without complications | CPT/HCPCS: 81002; 87088; 87186; G0463 ==

== ENCOUNTER → 2020-09-24 | Outpatient (CLI) | payer MEDICARE, MEDICAID ==
[~2020-09-24] MED LIST changes: -LISI-542 PO; +LISI-898 PO; +LISI10TA22 PO; -LISI10TA4 PO; +MECL-136 PO; -MECL12.590 PO
--- NOTE | 2020-09-29 02:39 | ECWPNPC ---
PATIENT NAME: RALF HUMPHRIES : 1945 GENDER: FEMALE VISIT DATE: 09/24/2020 DISCHARGE DATE: 09/24/20 1231 VISIT LOCKED DATE TIME: PHYSICIAN: ROLA KING PHYSICIAN PAGER NO: ACTIVE RESOURCE: ROLA KING REASON FOR APPOINTMENT 1. CHRONIC PAIN MUSCLE SKELETAL PAIN HISTORY OF PRESENT ILLNESS DEPRESSION SCREENING: PHQ-9 LITTLE INTEREST OR PLEASURE IN DOING THINGSMORE THAN HALF THE DAYS FEELING DOWN, DEPRESSED, OR HOPELESSSEVERAL DAYS TROUBLE FALLING OR STAYING ASLEEP, OR SLEEPING TOO MUCHSEVERAL DAYS FEELING TIRED OR HAVING LITTLE ENERGYNEARLY EVERY DAY POOR APPETITE OR OVEREATING NOT AT ALL FEELING BAD ABOUT YOURSELF-OR THAT YOU ARE A FAILURE OR HAVE LET YOURSELF OR YOUR FAMILY DOWN NOT AT ALL TROUBLE CONCENTRATING ON THINGS, SUCH READING THE NEWSPAPER OR WATCHING TELEVISION NOT AT ALL MOVING OR SPEAKING SO SLOWLY THAT OTHER PEOPLE COULD HAVE NOTICED. OR THE OPPOSITE- BEING SO FIDGETY OR RESTLESS THAT YOU HAVE BEEN MOVING AROUND A LOT MORE THAN USUALNOT AT ALL THOUGHTS THAT YOU WOULD BE BETTER OFF , OR OF HURTING YOURSELF IN SOME WAY?NOT AT ALL TOTAL SCORE:7 INTERPRETATIONMILD DEPRESSION PHQ-2 (2015 EDITION) LITTLE INTEREST OR PLEASURE IN DOING THINGS?NEARLY EVERY DAY FEELING DOWN, DEPRESSED, OR HOPELESS?SEVERAL DAYS TOTAL SCORE4 GENERAL: 74-YEAR-OLD FEMALE BEING REFERRED BY [facility] FOR PERSISTENT RIGHT SHOULDER AND ARM PAIN. PATIENT HAS SEEN [facility] ONLY 1 TIME. SHE WOULD LIKE TO GO BACK TO HER PRIMARY CARE PROVIDER WHO SHE HAS FOLLOWED FOR MANY YEARS, DR. CAMPOS. PATIENT IS A POOR HISTORIAN. STATES PAIN BEGAN SEVERAL YEARS AGO. STATES THAT SHE WAS ON HYDROCODONE 4 TIMES A DAY AND ALSO TAKING XANAX FOR MANY YEARS AND STATES PAIN WAS MUCH BETTER THAN IT IS NOW. WE DID DISCUSS WHY TAKING THOSE MEDICATIONS TOGETHER IS CONTRAINDICATED. DISCUSSED ALTERNATIVES TO MEDICATION I.E. LOOKING INTO INJECTION THERAPY. PATIENT STATES SHE IS NOT GOING TO HAVE ANY NEEDLES. STATES SHE SAW THE [facility] A FEW MONTHS AGO WHO ALSO OFFERED INJECTION THERAPY WHICH PATIENT IS REFUSING. PATIENT P APPEARS COMFORTABLE TODAY. WHEN ASKED TO MOVE HER RIGHT ARM SHE STATES SHE CAN'T. DIRECTOR SHIP STRENGTH IS MILDLY DECREASED IN THE RIGHT COMPARED TO THE LEFT HAND.-. FALL RISK SCREENING: SCREENING HAD ONE FALL BUT DID NOT GO TO THE THE ER. PAIN SCREENING: PATIENT HAS A COMPLAINT OF ACUTE OR CHRONIC PAIN :YES LOCATION OF PAIN:RIGHT SHOULDER INTENSITY OF PAIN (SCALE OF 1 TO 10):8 WHAT DOES YOUR PAIN FEEL LIKE:OTHER IT HURTS DURATION:CONTINOUS, CONSTANT, ALL DAY PAIN IS INCREASED BY:OTHERS LIFTING ARM PAIN IS DECREASED BY:OTHERS NOT DOING ANYTHING NURSING NOTE: -. PAIN CENTER INTAKE QUESTIONS: DO YOU HAVE A HISTORY OF MRSA? :NO DO YOU TAKE A BLOOD THINNERS? :NO DO YOU HAVE ANY BLEEDING DISORDERS? :NO ANY NEW NUMBNESS OR WEAKNESS IN YOUR LEGS OR ARMS? :NO ANY PACEMAKER,DEFIBRILLATOR, OR DORSAL COLUMN STIMULATOR? :NO DO YOU HAVE ANY RASHES OR OPEN SORES? :NO ARE YOU ALLERGIC TO IV DYE? :NO ARE YOU DIABETIC? :YES ANY NEW PROBLEMS WITH YOUR MEDICATIONS? :NO HAVE YOU RECEIVED A VACCINE IN THE PAST 30 DAYS? :NO HAVE NOT MADE UP HER MIND ABOUT IT SHOUD BE GETTING IT 09/25/2020 DO YOU PLAN TO RECEIVE A VACCINE IN THE NEXT 21 DAYS? :NO DO YOU NEED ANY PRESCRIPTION? :NO DO YOU TAKE ANY IMMUNOSUPPRESSIVE MEDICATIONS? :NO CURRENT MEDICATIONS TAKING CLINDAMYCIN PHOSPHATE 1 % GEL 1 APPLICATION EXTERNALLY TWICE A DAY TAKING VOLTAREN 1 % GEL 4 GM TRANSDERMAL QID, PRN PAIN TAKING TACROLIMUS 0.1 % OINTMENT 1 APPLICATION EXTERNALLY ONCE A DAY TAKING MINOCYCLINE HCL 100 MG CAPSULE 1 CAPSULE ORALLY EVERY 12 HRS TAKING CYMBALTA 60 MG CAPSULE DELAYED RELEASE PARTICLES 1 CAPSULE ORALLY ONCE A DAY TAKING MACROBID 100 MG CAPSULE 1 CAPSULE AT BEDTIME WITH FOOD ORALLY ONCE A DAY TAKING LISINOPRIL 5 MG TABLET 1 TABLET ORALLY TWICE DAILY TAKING FISH OIL 1000 MG CAPSULE 1 CAPSULE ORALLY TWICE A DAY TAKING MULTI-VITAMIN 1 TAB TABLET 1 TABLET ORALLY ONCE A DAY TAKING CALCIUM + D3 600-200 MG-UNIT TABLET 1 TAB ORALLY BID TAKING LANSOPRAZOLE 30 MG CAPSULE DELAYED RELEASE 1 CAPSULE ORALLY DAILY TAKING METFORMIN HCL 500 MG TABLET TAKE ONE TABLET BY MOUTH 2 TIMES A DAY WITH MEALS ORALLY BID TAKING MECLIZINE HCL 12.5 MG TABLET TAKE 1 TABLET BY MOUTH TWICE A DAY NEEDED FOR DIZZINESS TAKING XANAX 1 MG TABLET 1 TABLET ORALLY QID PRN MDD=4 TAKING SPIRIVA HANDIHALER 18 MCG CAPSULE INHALE 1 CAPSULE VIA HANDIHALER ONCE DAILY TAKING FLUTICASONE PROPIONATE 50 MCG/ACT SUSPENSION INSTILL TWO SPRAYS IN EACH NOSTRIL ONCE DAILY TAKING ASPIRIN 325 MG TABLET DELAYED RELEASE TAKE ONE TABLET BY MOUTH EVERY MORNING TAKING MULTIVITAMIN - TABLET TAKE ONE TABLET BY MOUTH ONCE DAILY NOT-TAKING LEVOTHYROXINE SODIUM 88 MCG TABLET 1 TABLET IN THE MORNING ON AN EMPTY STOMACH ORALLY ONCE A DAY NOT-TAKING FLONASE ALLERGY RELIEF 50 MCG/ACT SUSPENSION 2 SPRAYS IN EACH NOSTRIL NASALLY ONCE A DAY MEDICATION LIST REVIEWED AND RECONCILED WITH THE PATIENT PAST MEDICAL HISTORY DIABETES MELLITUS LOW BACK PAIN NECK PAIN HEARTBURN CHRONIC DEPRESSION ANXIETY SMOKING DIVERTICULITIS DIVERTICULOSIS ZENKERS DIVERTICULUM HYPOTHYROIDISM NEEDLESTICK EXPOSURE BRACHIAL NEURITIS OR RADICULITIS NOS. PYELONEPHRITIS ALLERGIES CITALOPRAM HYDROBROMIDE: PALPITATIONS - CONTRAINDICATION BACTRIM DS: RASH - ALLERGY SULFA DRUG SURGICAL HISTORY HYSTERECTOMY APPENDECTOMY C SECTION BLADDER SURGERY VOCAL CORD SURGERY 12/2013 NEEDLESTICK- 2016 FAMILY HISTORY FATHER: , STOMACH CANCER MOTHER: , [place], CVA SIBLINGS: , CEREBRAL ANEURYSM, CVA, [place], CAD DAUGHTER(S): ALIVE 1 BROTHER(S) , 2 SISTER(S) . 3DAUGHTER(S) - HEALTHY. DENIES FAMILY HX OF SKIN CANCER AND MELNAOMA. SOCIAL HISTORY GENERAL: TOBACCO USE ARE YOU A:CURRENT SMOKER ARE YOU INTERESTED IN QUITTING?NOT READY TO QUIT COUNSELED THE PATIENT ON SMOKING EFFECTS, EDUCATION [id number]/18/2021 HOW MANY CIGARETTES A DAY DO YOU SMOKE?6-10 ADDITIONAL FINDINGS: TOBACCO USERLIGHT CIGARETTE SMOKER ((1-9 CIGS/DAY) VAPORNO E-CIGARETTENO LATEX QUESTIONNAIRE LATEX ALLERGY : HAVE YOU EVER DEVELOPED ANY TYPE OF REACTION AFTER HANDLING LATEX PRODUCTS SUCH RUBBER GLOVES, CONDOMS, DIAPHRAGMS, BALLOONS, SOCKS, OR UNDERWEAR?NO LATEX ALLERGY : HAVE YOU EVER DEVELOPED ANY TYPE OF REACTION DURING OR AFTER DENTAL APPOINTMENT, VAGINAL/RECTAL EXAMINATION, SURGICAL PROCEDURE, OR ANY OTHER EXPOSURE?NO LATEX RISK : HAVE YOU EVER HAD ANY DIFFICULTY BREATHING OR HIVES AFTER EATING OR HANDLING ANY FRUITS, OR VEGETABLES; SUCH KIWI, BANANAS, STONE FRUITS, OR CHESTNUTSNO LATEX RISK : DO YOU HAVE A PREVIOUS PERSONAL HISTORY OF MORE THAN NINE SURGERIES, SPINA BIFIDA, OR REPEATED CATHERIZATIONS? NO LATEX RISK : ARE YOU FREQUENTLY EXPOSED TO LATEX PRODUCTS IN YOUR OCCUPATION?NO DATE ASKED : 09/24/2020 ALCOHOL USE: NO. BMI CARE GOAL FOLLOW-UP ABOVE NORMAL BMI FOLLOW-UP -22.6-NORMAL ALCOHOL SCREENING DID YOU HAVE A DRINK CONTAINING ALCOHOL IN THE PAST YEAR?NO POINTS0 INTERPRETATIONNEGATIVE RECREATIONAL DRUG USE DRUG USE?NO CAFFEINE CAFFEINE USE?YES HOW OFTEN AND HOW MUCH? COFFEE DAILY SEXUAL HX HAD SEX IN THE LAST 12 MONTHS (VAGINAL, ORAL, OR ANAL)?NO HAVE YOU EVER HAD AN STD?NO HIV / HEP-C SCREENING HIV TEST OFFERED TO PATIENT:NO -N/A DUE TO AGE HEP-C TEST OFFERED TO PATIENT:YES DATE OFFERED:07/21/2020 TEST ACCEPTED:NO REASON:PATIENT DECLINED HINDUISM [id number] CONGREGATIONAL LANGUAGE LANGUAGES SPOKEN:DIVEHI EDUCATION LEVEL OF EDUCATION:FINISHED HIGH SCHOOL LEARNING BARRIERS / SPECIAL NEEDS CHANGE FROM LAST VISIT?NO BARRIERS TO LEARNING?NO HEARING IMPAIRED?NO VISION IMPAIRED?YES :CORRECTIVE LENSES COGNITIVELY IMPAIRED?NO READINESS TO LEARN?YES LEARNING PREFERENCES?NO LEARNING CAPABILITIES PRESENT?YES EMOTIONAL BARRIERS?NO SPECIAL DEVICES?YES :CANE, WALKER NEEDED MANAGER CARD NEEDED?NO DOMESTIC VIOLENCE DO YOU FEEL SAFE IN YOUR ENVIRONMENT?YES OCCUPATION: RETIRED. DIET: REGULAR. EXERCISE: NO REGULAR EXERCISE. MARITAL STATUS: . OTHERS AT HOME: GRANDSON. HOUSING: OWNS HOME. HOSPITALIZATION/MAJOR DIAGNOSTIC PROCEDURE [facility] 08/19/18-08/23/18 [facility] 01/06-01/10/19 [facility] 02/01/19 [facility] 04/26- REVIEW OF SYSTEMS CONSTITUTIONAL: ANY RECENT FEVER NO . CHILLS NO . WEIGHT CHANGE OF UNKNOWN REASONS NO . GASTROENTEROLOGY: NEW UNEXPLAINABLE CHANGES IN BOWEL CONTROL NO . CONSTIPATION NO . GENITOURINARY: ANY NEW CHANGE IN BLADDER CONTROL? NO . NEUROLOGY: NEW ONSET DIZZINESS OR NEUROLOGICAL CHANGES NOT MENTIONED NO . NEW NUMBNESS OR PAIN PATTERNS NOT MENTIONED AND PERTINENT TO TODAY'S VISIT NO . CARDIOLOGY: NEW CHEST PRESSURE NO . PATIENT DENIES NO . RESPIRATORY: UNEXPLAINABLE COUGH NO . NEW SHORTNESS OF BREATH NO . VITAL SIGNS WT 129.8 LBS, HT 5'3 1/2", BMI 22.63 INDEX, BP 185/77 MM HG, HR 93 /MIN, RR 16 /MIN, TEMP 97.9 F, OXYGEN SAT % 95%, SAFE IN ENV? (Y/N) YES, NA INITIALS CT 11:48T.CHUY MITCHELL. EXAMINATION GENERAL EXAMINATION: GENERALNO ACUTE DISTRESS. PSYCHAFFECT IS FLAT , CONSTRICTED . FACE:UNREMARKABLE. NECK:NO LYMPHADENOPATHY, SUPPLE. LUNGS:CLEAR TO AUSCULTATION BILATERALLY, NO WHEEZES, RHONCHI, RALES. HEART:NO MURMURS, REGULAR RATE AND RHYTHM. MUSCULOSKELETAL:PATIENT STATES SHE IS UNABLE TO RAISE HER RIGHT ARM . DIRECTOR SHIP STRENGTH RIGHT HAND SLIGHTLY WEAKER THAN LEFT . EXTREMITIES:PATIENT COMPLAINS OF PAIN WITH LIGHT TOUCH OVER RIGHT ARM IN ITS ENTIRETY. REPORTING NORMAL SENSATION TO LIGHT TOUCH OVER LEFT ARM. . ASSESSMENTS PAIN IN RIGHT SHOULDER - M25.511 (PRIMARY) OTHER CHRONIC PAIN - G89.29 TREATMENT PAIN IN RIGHT SHOULDER NOTES: DISCUSSED INTERVENTIONAL TREATMENT OPTIONS. PATIENT DOES NOT WANT ANY NEEDLES. PATIENT DOES NOT WANT SURGERY. ADVISED TO CONTINUE MEDICATION MANAGEMENT WITH PRIMARY CARE. PRIMARY CARE PROVIDER MAY CONTACT ME TO DISCUSS MEDICATION IF NECESSARY. PROCEDURE CODES FA211 ESTABILISHED PATIENT [facility] CHARGE DISPOSITION & COMMUNICATION FOLLOW UP NO FOLLOW-UP NECESSARY/ENCOURAGED TO MAKE APPOINTMENT WITH PRIMARY CARE (REASON: CHRONIC RIGHT SHOULDER AND ARM PAIN) ELECTRONICALLY SIGNED BY JANE CAMPOS ON 09/28/2020 AT 03:39 PM EDT DISCLAIMER : THIS IS A VISIT SUMMARY EXTRACTED FROM THE [employer] CHART. IT IS NOT A COPY OF THE [employer] PROGRESS NOTE. BETI
== END ==
LOC: M PAIN 11:15
PROVIDERS: ATTEND Nurse Practitioner Family
DX: M25.511 Pain in right shoulder (principal); G89.29 Other chronic pain; E11.9 Type 2 diabetes mellitus without complications; F17.210 Nicotine dependence, cigarettes, uncomplicated; Z86.59 Personal history of other mental and behavioral disorders; Z88.1 Allergy status to other antibiotic agents; Z88.2 Allergy status to sulfonamides; Z88.8 Allergy status to other drugs, medicaments and biological substances; Z79.82 Long term (current) use of aspirin; Z79.84 Long term (current) use of oral hypoglycemic drugs; Z79.899 Other long term (current) drug therapy

== ENCOUNTER → 2020-10-20 | Outpatient (REF) | payer MEDICARE, MEDICAID ==
[2020-10-20 22:03] LABS: APPEARANCE, URINE HAZY (CLEAR); BACTERIA, URINE AUTO NEGATIVE (NEGATIVE); BILIRUBIN, URINE AUTO NEGATIVE (NEGATIVE); BLOOD, URINE BLOOD 1+ (NEGATIVE); COLOR, URINE YELLOW (YELLOW); GLUCOSE, URINE (UA) AUTO NEGATIVE (NEGATIVE); KETONE, URINE AUTO NEGATIVE (NEGATIVE); LEUKOCYTE ESTERASE, URINE AUTO 3+ (NEGATIVE); MUCUS, URINE SMALL (NEGATIVE); NITRITE, URINE AUTO NEGATIVE (NEGATIVE); PROTEIN, URINE AUTO NEGATIVE (NEGATIVE); RBC, URINE AUTO 8 /HPF (0-3); SPECIFIC GRAVITY URINE AUTO 1.002 (1.002-1.035); SQUAMOUS EPITHELIAL CELL UR AU 0 /HPF (0-6); UROBILINOGEN, URINE AUTO 0.2 mg/dL (0.0-2.0); WBC, URINE AUTO 105 /HPF (0-3)
== END ==
LOC: M LAB REF 08:20
PROVIDERS: ATTEND Physician Assistant Medical
DX: R30.0 Dysuria (principal)

== ENCOUNTER → 2020-11-21 | Outpatient (REF) | payer MEDICARE, MEDICAID ==
[2020-11-21 17:21] LABS: APPEARANCE, URINE CLEAR (CLEAR); BACTERIA, URINE AUTO NEGATIVE (NEGATIVE); BILIRUBIN, URINE AUTO NEGATIVE (NEGATIVE); BLOOD, URINE BLOOD NEGATIVE (NEGATIVE); COLOR, URINE STRAW (YELLOW); GLUCOSE, URINE (UA) AUTO NEGATIVE (NEGATIVE); KETONE, URINE AUTO NEGATIVE (NEGATIVE); LEUKOCYTE ESTERASE, URINE AUTO 3+ (NEGATIVE); NITRITE, URINE AUTO NEGATIVE (NEGATIVE); PROTEIN, URINE AUTO NEGATIVE (NEGATIVE); RBC, URINE AUTO 2 /HPF (0-3); SPECIFIC GRAVITY URINE AUTO 1.005 (1.002-1.035); SQUAMOUS EPITHELIAL CELL UR AU 0 /HPF (0-6); UROBILINOGEN, URINE AUTO 0.2 mg/dL (0.0-2.0); WBC, URINE AUTO 34 /HPF (0-3)
== END ==
LOC: M LAB REF 16:16
PROVIDERS: ATTEND Physician Assistant
DX: N39.0 Urinary tract infection, site not specified (principal)

== ENCOUNTER → 2021-02-24 | Outpatient (REF) | payer MEDICARE, MEDICAID | LOC: M SFHCCLAY 16:38 | PROVIDERS: ATTEND Family Medicine | DX: N30.01 Acute cystitis with hematuria (principal) ==

== ENCOUNTER → 2021-04-02 | Outpatient (REF) | payer MEDICARE, MEDICAID ==
[2021-04-02 16:19] LABS: BASO # 0.1 10^3/uL (0.0-0.2); BASO % 0.6 % (0.0-1.0); EOS # 0.1 10^3/uL (0.0-0.5); EOS % 1.6 % (0.0-3.0); HEMATOCRIT 33.9 % (36.0-47.0); HEMOGLOBIN 10.3 g/dl (12.0-15.5); LYMPH # 2.7 10^3/uL (1.5-5.0); LYMPH % 33.1 % (24.0-44.0); MEAN CORPUSCULAR HEMOGLOBIN 25.7 pg (27.0-33.0); MEAN CORPUSCULAR HGB CONC 30.4 g/dl (32.0-36.5); MEAN CORPUSCULAR VOLUME 84.5 fl (80.0-96.0); MONO # 0.7 10^3/uL (0.0-0.8); MONO % 8.7 % (2.0-8.0); NEUTROPHILS # 4.4 10^3/uL (1.5-8.5); NEUTROPHILS % 55.4 % (36.0-66.0); PLATELET COUNT, AUTOMATED 304 10^3/uL (150-450); RED BLOOD COUNT 4.01 10^6/uL (4.00-5.40)
[2021-04-02 16:46] LABS: ALBUMIN 2.8 GM/DL (3.2-5.2); ALT/SGPT 17 U/L (12-78); BILIRUBIN,TOTAL 0.4 MG/DL (0.2-1.0); BLOOD UREA NITROGEN 9 MG/DL (7-18); CARBON DIOXIDE LEVEL 32 MEQ/L (21-32); CHLORIDE LEVEL 104 MEQ/L (98-107); CREATININE FOR GFR 0.69 MG/DL (0.55-1.30); GLOMERULAR FILTRATION RATE > 60.0 (>39); GLUCOSE, FASTING 94 MG/DL (70-100); POTASSIUM SERUM 3.6 MEQ/L (3.5-5.1); SODIUM LEVEL 140 MEQ/L (136-145); TOTAL PROTEIN 7.1 GM/DL (6.4-8.2)
== END ==
LOC: M SFHCCLAY 12:24
PROVIDERS: ATTEND Physician Assistant
DX: R05 Cough (principal)
CPT/HCPCS: 80053; 85025; U0003

== ENCOUNTER → 2021-04-02 | Outpatient (CLI) | payer MEDICARE, MEDICAID ==
[~2021-04-02] MED LIST changes: +AMLO2.5T3 PO; +CLONI1TA PO; +DULO1CAP5 PO; +LEVO88TA3 PO; +MOBI4TAB PO
--- NOTE | 2021-04-02 11:55 | REP ---
INDICATION: R06 COUGH. COMPARISON: Comparison chest x-ray June 11, 2020. TECHNIQUE: Two views.. FINDINGS: There is right apical pleural thickening and a 5.2 cm soft tissue mass effect in the right lung apex. There is destruction of the right lateral and anterior 2nd rib. Findings worrisome for apical lung mass with chest wall invasion. Remaining lung busby are clear. Heart is not enlarged. There are degenerative changes in the thoracic spine. No pleural effusion is seen. IMPRESSION: The large mass in the right lung apex with pleural thickening and right 2nd rib destruction consistent with malignancy. Recommend chest CT. Preferably with IV contrast. <Electronically signed by Laith Dahl > 04/02/21 [id number]
== END ==
LOC: M CLY 11:26
PROVIDERS: ATTEND Physician Assistant
DX: R91.8 Other nonspecific abnormal finding of lung field (principal); M51.34 Other intervertebral disc degeneration, thoracic region; R05 Cough
CPT/HCPCS: 71046; 80053; 85025; 87426; G0463; U0003

== ENCOUNTER → 2021-04-05 | Outpatient (CLI) | payer MEDICARE, OTHER ==
[~2021-04-05] MED LIST changes: -AMLO2.5T3 PO; -CLONI1TA PO; -DULO1CAP5 PO; +ISOVUE-370 76% 100ML VIAL As Ordered ONE; -LEVO88TA3 PO; -MOBI4TAB PO
--- NOTE | 2021-04-05 12:14 | REP ---
INDICATION: MASS OF RT LUNG. COMPARISON: Comparison is made with chest x-ray from April 02, 2021. TECHNIQUE: Helical scanning is acquired following the intravenous injection of 75 cc of Isovue 370. 3 mm axial images re-formatted. Coronal and sagittal MPR and coronal MIP images are provided. FINDINGS: CT imaging confirms the presence of a large right upper lobe lung mass extending into the chest wall and destroying the right 2nd and 3rd ribs. The 1st and 4th ribs border the lesion but appear to be intact. The dimensions of the mass are 5.8 cm right to left by 3.7 cm anterior to posterior by 5.4 cm cranial to caudal. There are hypertrophied adjacent lymph nodes in the right axilla. No supraclavicular adenopathy is appreciated. there is a lymph node in the right hilus with short axis dimension of 10 mm. There is a precarinal mediastinal lymph node with short axis dimension of 8 mm. These are not enlarged by CT criteria. There is a subcarinal lymph node with 10 mm short axis dimension. No pleural or pericardial effusion is seen. No endobronchial abnormality is seen. There is emphysematous change and some linear fibrosis in both upper lobes. Emphysematous changes are noted in the lower lobes bilaterally as well. There are mild subpleural fibrotic areas in the right lower lobe. There is a granulomatous calcification in the left upper lobe. No adrenal mass lesion is seen. There is parenchymal scarring in the upper poles of the kidneys bilaterally. Gallbladder surgically absent. There is a right upper quadrant abdominal wall hernia trans Ackerman a portion of the anterior wall of the gastric antrum. No other bony destructive lesion is seen. IMPRESSION: There is a large malignant-appearing spiculated mass in the right upper lobe peripherally extending through the right chest wall and destroying portions the right 2nd and 3rd ribs. There is evidence of adjacent adenopathy. Depending on the patient's ability to position her right shoulder, lesion does appear to be amenable to CT-guided needle aspiration if this is desired. <Electronically signed by Laith Dahl > 04/05/21 [id number]
== END ==
LOC: M RAD 11:20
PROVIDERS: ATTEND Physician Assistant
DX: R91.8 Other nonspecific abnormal finding of lung field (principal)
CPT/HCPCS: 71260; Q9967

== ENCOUNTER → 2021-04-14 | Outpatient (CLI) | payer MEDICARE, OTHER ==
[~2021-04-14] MED LIST changes: -ISOVUE-370 76% 100ML VIAL As Ordered ONE
[2021-04-14 12:47] LABS: INR 0.94; PROTHROMBIN TIME 12.9 SECONDS (12.7-14.5)
== END ==
LOC: M LAB 10:51
PROVIDERS: ATTEND Physician Assistant
DX: R91.8 Other nonspecific abnormal finding of lung field (principal)

== ENCOUNTER → 2021-04-16 | Outpatient (CLI) | payer MEDICARE, OTHER ==
[~2021-04-16] MED LIST changes: +AMLO2.5T3 PO; +CLONI1TA PO; +DULO1CAP5 PO; +HOME MED LIST COMPLETE! XX SCH; +LEVO88TA3 PO; +LIDOCAINE 1% MDV 20ML VIAL As Ordered ONE; +MOBI4TAB PO; +OXYC1TAB23 PO; +SODIUM BICARBONATE 8.4% INJ 50MEQ 50 ML VIAL As Ordered ONE
--- NOTE | 2021-04-16 09:26 | REP ---
INDICATION: POST LUNG BX RIGHT, PA INSPIRATION COMPARISON: 04/02/2021 TECHNIQUE: Portable AP view of the chest FINDINGS: Mediastinum and cardiac silhouette are within normal limits and stable. Lung busby demonstrate stable chronic interstitial changes. Right upper lobe mass/consolidation is again identified and unchanged. No obvious effusion or pneumothorax. No effusion. IMPRESSION: Stable examination. Right upper lobe mass/consolidation again noted. <Electronically signed by Eric Ko > 04/16/21 [id number]
[2021-04-16 11:15] VITALS: BP 118/50
--- NOTE | 2021-04-16 16:18 | REP ---
INDICATION: RT UPPER LOBE LUNG MASS. COMPARISON: None. TECHNIQUE: The procedure is performed by Sarah Worley [facility], under the direct supervision of Dr. Dahl. The risks and benefits of the procedure were explained to the patient and informed consent was obtained both orally and written. Directly prior to the start of the procedure, a formal timeout was done in the exam room. The right upper lobe lung mass was localized using CT guidance. Skin was prepped and draped in the usual sterile fashion. Eight ml of 1% lidocaine 10 mg/ml was used as a local anesthetic. FINDINGS: Using CT guidance a 19/20 gauge coaxial needle biopsy system was inserted and advanced into the nodule. Seven core biopsy samples were obtained and sent to the lab. CT images obtained directly after the biopsy show no evidence of pneumothorax. After the appropriate amount of monitored convalescence the patient was discharged from the department. IMPRESSION: CT-guided right lung mass biopsy. <Electronically signed by Sarah Worley > 04/16/21 1232 <Electronically signed by Laith Dahl > 04/16/21 [id number]
== END ==
LOC: M IRPRO 07:14
PROVIDERS: ATTEND Physician Assistant
DX: C34.11 Malignant neoplasm of upper lobe, right bronchus or lung (principal)

== ENCOUNTER 2021-05-05 10:40 | Observation (INO) | payer MEDICARE, OTHER ==
[~2021-05-05] VITALS: Ht 160 cm; Wt 50.4 kg
[~2021-05-05 10:40] MED LIST changes: -HOME MED LIST COMPLETE! XX SCH; -LIDOCAINE 1% MDV 20ML VIAL As Ordered ONE; -SODIUM BICARBONATE 8.4% INJ 50MEQ 50 ML VIAL As Ordered ONE
[2021-05-05 11:45] VITALS: BP 104/45
[2021-05-05] MEDS ORDERED: AZO1CAP PO (12:29)
[2021-05-05] MEDS ORDERED: MM S100C PO (12:29)
[2021-05-05] MEDS ORDERED: ASPI81TA26 PO (12:29)
[2021-05-05] MEDS ORDERED: OXYC1TAB23 PO (12:29)
[2021-05-05] MEDS ORDERED: FISH1000 PO (12:29)
[2021-05-05] MEDS ORDERED: HOME MED LIST COMPLETE! XX SCH (12:30)
[2021-05-05] MEDS ORDERED: PERCOCET 5MG/325MG TAB PO PRN (12:45)
[2021-05-05] MEDS ORDERED: IPRATROPIUM 0.5MG/ALBUTEROL 2.5MG INH SOL UD 3ML (DUONEB) NEB PRN (12:45)
[2021-05-05] MEDS ORDERED: ALPRAZolam 0.5 MG TAB PO PRN (12:45)
[2021-05-05] MEDS ORDERED: GLUCAGON INJ 1MG VIAL SC PRN (13:35)
[2021-05-05] MEDS ORDERED: GLUCOSE 4GM CHEW TABLET PO PRN (13:35)
[2021-05-05] MEDS ORDERED: DEXTROSE 50% 50 ML SYRINGE IV PRN (13:35)
--- NOTE | 2021-05-05 13:35 | REP ---
INDICATION: sob. COMPARISON: 04/16/2021. TECHNIQUE: Single portable AP view of the chest was performed. FINDINGS: Right upper lobe consolidative opacity is stable. There is no new infiltrate in either lung. The heart is normal in size. The mediastinal silhouette is unchanged. IMPRESSION: No acute pulmonary disease.Stable exam right upper lobe consolidative opacity. <Electronically signed by Andrew Mccall > 05/05/21 [id number]
[2021-05-05 13:45] LABS: HEMATOCRIT 32.4 % (36.0-47.0); HEMOGLOBIN 9.7 g/dl (12.0-15.5); MEAN CORPUSCULAR HEMOGLOBIN 25.6 pg (27.0-33.0); MEAN CORPUSCULAR HGB CONC 29.9 g/dl (32.0-36.5); MEAN CORPUSCULAR VOLUME 85.5 fl (80.0-96.0); PLATELET COUNT, AUTOMATED 256 10^3/uL (150-450); RED BLOOD COUNT 3.79 10^6/uL (4.00-5.40); WHITE BLOOD COUNT 9.8 10^3/uL (4.0-10.0)
[2021-05-05] MEDS ORDERED: ISOVUE-370 76% 100ML VIAL As Ordered ONE (13:56)
[2021-05-05] MEDS ORDERED: cefTRIAXone SOD 2 GM in D5W MINI-BAG PLUS 50 ML IV SCH (14:00)
[2021-05-05 14:09] LABS: ALBUMIN 3.1 GM/DL (3.2-5.2); ALT/SGPT 18 U/L (12-78); BILIRUBIN,TOTAL 0.4 MG/DL (0.2-1.0); BLOOD UREA NITROGEN 52 MG/DL (7-18); CALCIUM LEVEL 10.5 MG/DL (8.8-10.2); CARBON DIOXIDE LEVEL 30 MEQ/L (21-32); CHLORIDE LEVEL 103 MEQ/L (98-107); CK-MB VALUE MASS 1.1 NG/ML (<3.6); CPK CREATINE PHOSPHOKINASE 42 U/L (26-192); CREATININE FOR GFR 1.06 MG/DL (0.55-1.30); GLOMERULAR FILTRATION RATE 53.8 (>39); GLUCOSE, FASTING 97 MG/DL (70-100); MB/CK RELATIVE INDEX 2.62 (< OR =4); POTASSIUM SERUM 5.5 MEQ/L (3.5-5.1); SODIUM LEVEL 134 MEQ/L (136-145); TOTAL PROTEIN 8.4 GM/DL (6.4-8.2); TROPONIN I < 0.02 NG/ML (< 0.10)
[2021-05-05 14:10] LABS: CK-MB VALUE MASS 1.2 NG/ML (<3.6); CPK CREATINE PHOSPHOKINASE 49 U/L (26-192); MB/CK RELATIVE INDEX 2.45 (< OR =4); TROPONIN I < 0.02 NG/ML (< 0.10)
--- NOTE | 2021-05-05 14:57 | HPEPDOC ---
[facility] Medical History & Physical Date of Admission May 05, 2021 Date of Service: May 05, 2021 History and Physical CHIEF COMPLAINT: "We were at my mom's palliative care appointment, and her oxygen saturation was 75 to 80%. 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 Cantu with plans for palliative chemotherapy and by Dr. Pavon for palliative radiation, port placement today with interventional radiology, was sent for direct admission due to hypoxia with oxygen saturation is 75 to 80% on room air while at her palliative care clinic appointment. Per the daughter and the patient, her hands have been very cold and pale. [facility] supervisor electron tube processing was called for direct admission to further evaluate her hypoxia. Patient denies any dyspnea on exertion, dyspnea at rest, pleuritic chest pain, pressure, tightness, tachycardia, near syncope, lightheadedness, dizziness, fever, nausea, vomiting, or abdominal pain. She admits to feeling cold, occasional chills, cough productive of white-yellow sputum. Per the daughter, ad hansen has been eating well and uses Ensure in the days that her appetite is low. She has been increasingly tired and weak with weight loss, noticing that her clothes are fitting loosely, from a large sized to medium size clothing. On arrival, pt's fingers were cold, and upon warming , pulse ox was 99% on room air, CXR: no infiltrate, effusion. chronic right upper lobe opacity. Per Dr. Saleem, IR, pt will need to be re-scheduled for port placement as outpt due to high infection rate if done inhouse. Dr. King has been consulted for Radiation, and Dr. Bonilla, [facility], has been consulted to discuss chemo as outpt. 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 Hypertension Diabetes Hypothyroidism Anxiety Gastroesophageal reflux disease Dyslipidemia COPD Allergic rhinitis Depression Chronic neck and low back pain Diverticulitis/diverticulosis Zenker's diverticulum Brachial neuritis Pyelonephritis [place] exposure PAST SURGICAL HISTORY: Hysterectomy appendectomy Bladder surgery Vocal cord surgery 12/2013 SOCIAL HISTORY: Previous smoker 1-1/2 packs a day quit 04/02/2021 Denies alcohol use Denies recreational drug use Retired DO NOT RESUSCITATE DO NOT INTUBATE Healthcare proxy is the daughter FAMILY HISTORY: Noncontributory due to advanced age ALLERGIES: Please see below. REVIEW OF SYSTEMS: 10 point review of systems negative aside from positive findings in HPI HOME MEDICATIONS: Please see below. PHYSICAL EXAMINATION: VITAL SIGNS: See below GENERAL APPEARANCE: Cachectic with bitemporal wasting no cyanosis icterus jaundice speaks in full sentences without conversational dyspnea HEENT: Edentulous dry mucous membranes pupils equally round reactive to light accommodation extract muscles are intact face is symmetric tongue is midline CARDIOVASCULAR: S1-S2 sinus rhythm no S3 nondisplaced point of maximal impulse no murmurs noted no carotid bruit LUNGS: Diminished but clear to auscultation no wheezing rales or rhonchi inspiratory expiratory ratio 1:2 ABDOMEN: Positive bowel sounds soft nontender nondistended no rebound or guarding no CVA tenderness. EXTREMITIES: No cyanosis no edema LABORATORY DATA: See below. IMAGING: See below MICROBIOLOGY: Please see below. ASSESSMENT: 75-year-old female with history of COPD not oxygen or steroid- dependent actively smoking until March when she was diagnosed with squamous cell cancer of the right upper lobe with metastatic lesions to the ribs seen at the [facility] with plans for palliative chemotherapy, and referred to radiation oncology for palliative radiation, was at her palliative care clinic appointment today when she was found to be hypoxic saturating 75% on room air. She was sent to [facility] for direct admission for evaluation of hypoxia rule out pneumonia, malignant pleural effusion, and pulmonary embolism. She was negative for coronavirus. She was found to be 99% oxygen saturation on room air on arrival, without tachypnea, fever, and tachycardia. Stage IV right upper lobe squamous cell lung cancer with metastatic lesions to the ribs -Patient was sent for direct admission due to oxygen saturation in 75% on room air during her palliative care clinic appointment, but on warming her fingers and hands oxygen saturation at [facility] on admission was 99% on room air. -Chest x-ray had no acute infiltrate effusion or pulmonary edema. Coronavirus 19 was negative patient has chronic right upper lobe mass secondary to squamous cell lung CA. Patient did not have any tachycardia tachypnea or pleuritic chest pain, but will be evaluated for pulmonary embolism with a CT angio of the chest. -Patient missed her port placement today by interventional radiology, and per Dr. Saleem's recommendation patient should be discharged home in order to reschedule her port placement for palliative chemotherapy -Medical oncologist Dr. Bonilla tombstone carver from the [facility] will be seeing the patient on consult today. -Radiation oncologist Dr. Pavon will see the patient for palliative radiation. -Patient does not have any inpatient criteria to remain more than 2 days in the hospital. After she is ruled out for pulmonary embolism with CT angio of the chest, she may be discharged in the morning after radiation. Hypertension, controlled -Holding parameters have been placed for her Norvasc and clonidine Cancer cachexia /protein calorie malnutrition BMI of 19.7 -Patient is continued on Ensure [address] Inspector has been consulted. Diabetes -On fingersticks [facility] with [facility] protocol coverage. Due to cancer cachexia patient will be kept on supplemental Ensure Hypothyroidism -Resume Synthroid Anxiety -Resumed home meds Gastroesophageal reflux disease -On PPI Dyslipidemia -Chronic COPD, compensated -Continue bronchodilators Tobacco abuse -Tobacco cessation counseling Patient quit smoking March 2021 Allergic rhinitis -Chronic Depression -Chronic, resume home meds Chronic neck and low back pain -Chronic History of diverticulitis/diverticulosis History of Zenker's diverticulum History of brachial neuritis CODE STATUS: DO NOT RESUSCITATE DO NOT INTUBATE Healthcare proxy: Daughter. Vital Signs Vital Signs Date Time Temp Pulse Resp B/P (MAP) Pulse Ox O2 Delivery O2 Flow Rate FiO2 05/05/21 11:45 96.0 58 17 104/45 (64) 96 Room Air Laboratory Data Labs 24H Laboratory Tests 2 05/05/21 11:48: Coronavirus (COVID-19)(PCR) NEGATIVE 05/05/21 13:11: Nucleated Red Blood Cells % (auto) 0.0, Anion Gap 1L, Glomerular Filtration Rate 53.8, Lactic Acid Level 1.2, Calcium Level 10.5H, Total Bilirubin 0.4, Aspartate Amino Transf (AST/SGOT) 17, Alanine Aminotransferase (ALT/SGPT) 18, Alkaline Phosphatase 76, Total Creatine Kinase 49, Creatine Kinase MB 1.2, Creatine Kinase MB Relative Index 2.45, Troponin I < 0.02, C-Reactive Protein, Quantitative 4.69H, ZN-Ufx-H-Type Natriuretic Peptide 266, Total Protein 8.4H, Albumin 3.1L, Albumin/Globulin Ratio 0.6L 05/05/21 13:35: CBC/BMP Laboratory Tests 05/05/21 13:11 Home Medications Scheduled Amlodipine Besylate (Amlodipine Besylate) 2.5 Mg Tablet, 2.5 MG PO QHS Aspirin (Aspirin EC) 81 Mg Tablet.dr, 81 MG PO DAILY Clonidine Hcl (Clonidine HCl) 0.1 Mg Tablet, 0.1 MG PO BID Cranberry Fruit Extract/Vit C (Azo Cranberry Softgel) 1 Each Capsule, 2 CAP PO BID Docusate Sodium (Stool Softener) 100 Mg Capsule, 100 MG PO DAILY Fluticasone Propionate (Flonase Allergy Relief) 9.9 Ml [place].susp, 2 SPRAY NARES DAILY Lansoprazole (Prevacid) 30 Mg Cap, 30 MG PO DAILY Levothyroxine Sodium (Levothyroxine Sodium) 88 Mcg Tablet, 88 MCG PO QAM Meclizine HCl (Meclizine HCl) 12.5 Mg Tab, 12.5 MG PO BID Meloxicam (Mobic) 7.5 Mg Tablet, 7.5 MG PO DAILY WITH FOOD Metformin HCl (Metformin HCl) 500 Mg Tab, 500 MG PO BID Multivitamin (Daily Chapo) 1 Tab Tab, 1 TAB PO DAILY [place]-3 Fatty Acids/Fish Oil (Fish Oil 1,000 mg Capsule) 1 Each Capsule, 1,000 MG PO BID Tiotropium [place] (Spiriva) 18 Mcg Cap, 18 MCG INH DAILY Scheduled PRN Alprazolam (Alprazolam) 1 Mg Tablet, 1 MG PO QID PRN for ANXIETY Oxycodone HCl/Acetaminophen (Oxycodone-Acetaminophen 5-325) 1 Each Tablet, 1 TAB PO Q6H PRN for PAIN LEVEL 1-6 Allergies Coded Allergies: Scallop (Verified Allergy, Unknown, UNKNOWN, 04/28/19) Sulfa (Sulfonamide Antibiotics) (Verified Allergy, Unknown, RASH, 04/16/21) citalopram (Verified Adverse Reaction, Intermediate, racing heart, 04/28/19) A-FIB/CHADSVASC A-FIB History Current/History of A-Fib/PAF?: No Current PO Anticoag Therapy: No Age/Risk Factor Scoring CHADSVASC: CHADSVASC Response (Comments) Value Age Risk Factor Age >/= 75 years old 2 Gender Risk Factor Female 1 Hx of CHF No 0 Hx of HTN Yes 1 Hx of Stroke/TIA/or VTE No 0 Hx of Diabetes Yes 1 Hx of Vascular Disease No 0 Total 5 Treatment Treatment ordered: NONE TRENT STEWART MD May 05, 2021 14:34
[2021-05-05] MEDS ORDERED: DOXYCYCLINE HYCLATE 100 MG in D5W MINI-BAG PLUS 100 ML IV SCH (15:00)
[2021-05-05] MEDS ORDERED: CALCIUM GLUCONATE 1,000 MG in D5W MINI-BAG PLUS 100 ML IV ONE (15:00)
[2021-05-05] MEDS ORDERED: SOD POLYSTYRENE SULFONATE SUSP 15 GM/60 ML UD PO ONE (16:00)
[2021-05-05] MEDS: IPRATROPIUM 0.5MG/ALBUTEROL 2.5MG INH SOL UD 3ML (DUONEB) NEB SCH ×2 (16:00→20:56)
[2021-05-05 16:27] LABS: ERYTHROCYTE SEDIMENTATION RATE 82 mm/hr (0-30)
[2021-05-05] MEDS: HumaLOG INSULIN (NovoLOG) PER UNIT SC SCH (16:53)
[2021-05-05] MEDS: NS 1,000 ML IV SCH (17:01)
--- NOTE | 2021-05-05 17:54 | REPVR ---
PROCEDURE INFORMATION: Exam: CTA Chest With Contrast Exam date and time: 05/05/2021 4:22 PM Age: 75 years old Clinical indication: Shortness of breath; Additional info: R/O pe lung CA w mets to bone TECHNIQUE: Imaging protocol: Computed tomographic angiography of the chest with contrast. 3D rendering (Not supervised by radiologist): MIP and/or 3D reconstructed images were created by the technologist. Radiation optimization: All CT scans at this facility use at least one of these dose optimization techniques: automated exposure control; mA and/or kV adjustment per patient size (includes targeted exams where dose is matched to clinical indication); or iterative reconstruction. Contrast material: ISOVUE 370; Contrast volume: 75 ml; Contrast route: INTRAVENOUS (IV); COMPARISON: CT Chest with contrast 04/05/2021 11:49 AM FINDINGS: Pulmonary arteries: Normal. No pulmonary emboli. Aorta: Unremarkable. No aortic aneurysm. No aortic dissection. Lungs: Extensive emphysematous changes. New lie in Pleural spaces: There is a pleural based mass in the right upper lobe measuring 5.2 x 6.3 x 7.9 cm(APxTxCC). Destruction of right 2nd 3rd ribs. It previously measured the high 5.0 x 4.9 x 6.1 cm. Right axillary lymph measuring 1 cm unchanged. Heart: Unremarkable. No cardiomegaly. No pericardial effusion. Lymph nodes: Unremarkable. No enlarged lymph nodes. Bones/joints: See "Pleural spaces" finding. Soft tissues: Unremarkable. IMPRESSION: Pleural based right upper lobe mass increased in size with destruction of 2nd and 3rd ribs. No pulmonary embolism. Electronically signed by: Mario Canela On 05/05/2021 17:53:35 PM
--- NOTE | 2021-05-05 19:36 | CR.PDOC ---
General Date of Consultation: May 05, 2021 Referring Provider: TRENT STEWART MD Consultation REASON FOR CONSULTATION/CHIEF COMPLAINT: [Hypoxemia, metastatic lung cancer]. HISTORY OF PRESENT ILLNESS: [75-year-old woman with chronic history of cigarette smoking diagnosed with right upper lobe squamous cell lung cancer with metastasis to the ribs on 04/21/2021. Patient is getting work-up done to assess disease extent with PET CT scan and also possible chemotherapy treatment with carboplatin and Taxol with radiation. She is due for chemotherapy port placement. She was noted to have desaturated on room air to 75 to 80% while she was at the palliative care clinic. She was sent to the hospital for evaluation. She did report having cough productive of white to yellow-colored phlegm and occasional chills but no fevers. She has had significant weight loss and feeling tired. Her fingers and hands were cold and on warming oxygen saturation was rechecked and was 99% on room air. Chest x-ray was obtained and there was evidence of chronic right upper lobe opacification and no other infiltrate and effusion was seen. pt has had ct angiogram of the chest to assess for PE, and this was done today. No PE, but large mass which has increased in size from 6.1 cm 04/05/21 to 7.9 cm in RUL involving the right 2nd and 3rd ribs. this has been causing discomfort to pt. ]. ALLERGIES: Please see below. HOME MEDICATIONS: Please see below. PAST MEDICAL HISTORY: Stage IV squamous cell carcinoma of the right upper lung with metastasis to the ribs., COPD, hypertension, diabetes, hypothyroidism, anxiety, gastroesophageal reflux, diverticulosis, history of diverticulitis, brachial neuritis pyelonephritis Zenker's diverticulum PAST SURGICAL HISTORY: Patient has history of vocal cord surgery, bladder surgery appendectomy and hysterectomy FAMILY HISTORY: Not significant SOCIAL HISTORY: Excigarette smoker 1 and half packs per day quit in March 2021. No history of alcohol abuse, no history of IV drug abuse. Patient's healthcare proxy is daughter. REVIEW OF SYSTEMS: All systems reviewed. Pertinent positive and negative findings included in the history of present illness and interval history. Rest of the review of systems was normal. PHYSICAL EXAMINATION: VITAL SIGNS: Please see below. General: Alert awake oriented x3, not in acute distress, Elderly White woman, patient appears to have significant muscle wasting Skin: No rashes, no petechiae, no bruises, no ecchymosis HEENT: Head-normocephalic, atraumatic, eyes-PERRLA EOMI, oral exam-edentulous, no oral thrush or lesions seen Neck: Supple, no JVD Chest: Decreased air entry, but clear to auscultation bilaterally. Heart: S1-S2 positive, no murmurs rubs or gallops heard Abdomen: Bowel sounds positive, nondistended, nontender, no hepatosplenomegaly Extremities: No pedal edema bilaterally, full range of movement of all the large joints. Neurological exam: No focal motor neurological deficits bilaterally, cranial nerves II to XII normal bilaterally LABORATORY DATA: Please see below. ASSESSMENT/PLAN: 75-year-old woman with a metastatic squamous cell carcinoma from the right upper lobe of the lung with involvement of the ribs. Mass now measure 7.9cm (T4). Patient was referred to radiation oncology and is also scheduled for palliative chemoradiation with carboplatin and Taxol. Chemotherapy port to be placed and t his can be done while in the hospital. Presently oxygen saturation is at 99% on room air. Previous decline is likely related to poor peripheral perfusion as evidenced by cold extremities. With warming the oxygen saturation has gone up. 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 CT angiogram Chest shows no PE, large mass invading ribs. Labs reviewed hemoglobin at 9.7 g normal white count and normal platelet counts. Patient possibly dehydrated with elevated BUN at 52. Serum creatinine was at 1.06 with GFR of 53 mL/min. Once patient is discharged, to get PET/CT scan and then chemotherapy can be given at the cancer center concurrent with RT. Vital Signs/I&O Vital Signs Date Time Temp Pulse Resp B/P (MAP) Pulse Ox O2 Delivery O2 Flow Rate FiO2 05/05/21 11:45 96.0 58 17 104/45 (64) 96 Room Air Laboratory Data Labs 24H Laboratory Tests 2 05/05/21 11:48: Coronavirus (COVID-19)(PCR) NEGATIVE 05/05/21 13:11: Nucleated Red Blood Cells % (auto) 0.0, Erythrocyte Sedimentation Rate 82H, Anion Gap 1L, Glomerular Filtration Rate 53.8, Lactic Acid Level 1.2, Calcium Level 10.5H, Total Bilirubin 0.4, Aspartate Amino Transf (AST/SGOT) 17, Alanine Aminotransferase (ALT/SGPT) 18, Alkaline Phosphatase 76, Total Creatine Kinase 49, Creatine Kinase MB 1.2, Creatine Kinase MB Relative Index 2.45, Troponin I < 0.02, C-Reactive Protein, Quantitative 4.69H, CH-Cvv-A-Type Natriuretic Peptide 266, Total Protein 8.4H, Albumin 3.1L, Albumin/Globulin Ratio 0.6L, Procalcitonin <0.05 05/05/21 13:35: Methicillin-Resist S.aureus DNA PCR DETECTEDA 05/05/21 16:42: Bedside Glucose (Misc Panel) 89 CBC/BMP Laboratory Tests 05/05/21 13:11 Microbiology Microbiology 05/05/21 Gram Stain, Received Pending 05/05/21 Sputum Culture, Received Pending Allergies Coded Allergies: Scallop (Verified Allergy, Unknown, UNKNOWN, 04/28/19) Sulfa (Sulfonamide Antibiotics) (Verified Allergy, Unknown, RASH, 04/16/21) citalopram (Verified Adverse Reaction, Intermediate, racing heart, 04/28/19) Home Medications Scheduled Amlodipine Besylate (Amlodipine Besylate) 2.5 Mg Tablet, 2.5 MG PO QHS, (Reported) Aspirin (Aspirin EC) 81 Mg Tablet.dr, 81 MG PO DAILY, (Reported) Clonidine Hcl (Clonidine HCl) 0.1 Mg Tablet, 0.1 MG PO BID, (Reported) Cranberry Fruit Extract/Vit C (Azo Cranberry Softgel) 1 Each Capsule, 2 CAP PO BID, (Reported) Docusate Sodium (Stool Softener) 100 Mg Capsule, 100 MG PO DAILY, (Reported) Fluticasone Propionate (Flonase Allergy Relief) 9.9 Ml [place].susp, 2 SPRAY NARES DAILY, (Reported) Lansoprazole (Prevacid) 30 Mg Cap, 30 MG PO DAILY, (Reported) Levothyroxine Sodium (Levothyroxine Sodium) 88 Mcg Tablet, 88 MCG PO QAM, (Reported) Meclizine HCl (Meclizine HCl) 12.5 Mg Tab, 12.5 MG PO BID, (Reported) Meloxicam (Mobic) 7.5 Mg Tablet, 7.5 MG PO DAILY, (Reported) WITH FOOD Metformin HCl (Metformin HCl) 500 Mg Tab, 500 MG PO BID, (Reported) Multivitamin (Daily Chapo) 1 Tab Tab, 1 TAB PO DAILY, (Reported) [place]-3 Fatty Acids/Fish Oil (Fish Oil 1,000 mg Capsule) 1 Each Capsule, 1,000 MG PO BID, (Reported) Tiotropium [place] (Spiriva) 18 Mcg Cap, 18 MCG INH DAILY, (Reported) Scheduled PRN Alprazolam (Alprazolam) 1 Mg Tablet, 1 MG PO QID PRN for ANXIETY, (Reported) Oxycodone HCl/Acetaminophen (Oxycodone-Acetaminophen 5-325) 1 Each Tablet, 1 TAB PO Q6H PRN for PAIN LEVEL 1-6, (Reported) Jimmy Bonilla MD May 05, 2021 19:36
[2021-05-05] MEDS ORDERED: HumaLOG INSULIN (NovoLOG) PER UNIT SC SCH (21:00)
[2021-05-05] MEDS: cloNIDine 0.1MG TABLET PO SCH (21:56)
[2021-05-05] MEDS: MECLIZINE 12.5 MG TAB PO SCH (21:57)
[2021-05-05 22:00] VITALS: BP 166/63
[2021-05-06] MEDS: IPRATROPIUM 0.5MG/ALBUTEROL 2.5MG INH SOL UD 3ML (DUONEB) NEB SCH ×4 (00:08→11:12)
[2021-05-06] MEDS: NS 1,000 ML IV SCH (05:34)
[2021-05-06 06:00] VITALS: BP 114/59
[2021-05-06] MEDS ORDERED: LEVOTHYROXINE 88MCG TABLET (0.088 MG) PO SCH (06:00)
[2021-05-06 06:42] LABS: BASO % 0.4 % (0.0-1.0); EOS # 0.3 10^3/uL (0.0-0.5); EOS % 2.6 % (0.0-3.0); HEMOGLOBIN 9.1 g/dl (12.0-15.5); LYMPH # 2.1 10^3/uL (1.5-5.0); LYMPH % 22.4 % (24.0-44.0); MEAN CORPUSCULAR HEMOGLOBIN 26.3 pg (27.0-33.0); MEAN CORPUSCULAR HGB CONC 31.4 g/dl (32.0-36.5); MEAN CORPUSCULAR VOLUME 83.8 fl (80.0-96.0); MONO % 10.4 % (2.0-8.0); NEUTROPHILS % 63.6 % (36.0-66.0); PLATELET COUNT, AUTOMATED 235 10^3/uL (150-450); RED BLOOD COUNT 3.46 10^6/uL (4.00-5.40); WHITE BLOOD COUNT 9.5 10^3/uL (4.0-10.0)
[2021-05-06 07:10] LABS: BLOOD UREA NITROGEN 35 MG/DL (7-18); CALCIUM LEVEL 9.2 MG/DL (8.8-10.2); CARBON DIOXIDE LEVEL 26 MEQ/L (21-32); CHLORIDE LEVEL 106 MEQ/L (98-107); CREATININE FOR GFR 0.92 MG/DL (0.55-1.30); GLOMERULAR FILTRATION RATE > 60.0 (>39); GLUCOSE, FASTING 93 MG/DL (70-100); POTASSIUM SERUM 4.4 MEQ/L (3.5-5.1); SODIUM LEVEL 135 MEQ/L (136-145)
[2021-05-06] MEDS: HumaLOG INSULIN (NovoLOG) PER UNIT SC SCH ×2 (07:30→12:00)
[2021-05-06] MEDS: MECLIZINE 12.5 MG TAB PO SCH (08:10)
[2021-05-06 08:12] VITALS: BP 136/59
[2021-05-06] MEDS: cloNIDine 0.1MG TABLET PO SCH (08:12)
[2021-05-06] MEDS ORDERED: FLUTICASONE PROP 0.05% NASAL SPRAY 16 GM (FLONASE) NARES SCH (09:00)
[2021-05-06] MEDS ORDERED: MELOXICAM (MOBIC) 7.5 MG TAB PO SCH (09:00)
[2021-05-06] MEDS ORDERED: ASPIRIN 81MG ENTERIC TABLET PO SCH (09:00)
[2021-05-06] MEDS ORDERED: DOCUSATE SODIUM 100MG CAPSULE PO SCH (09:00)
--- NOTE | 2021-05-06 11:01 | RADONC.CN ---
Radiation Oncology Hx/Consult Radiation Oncology Consult Date of Service: May 06, 2021 Pt Identifier Helen Alexandre is a 75 year old female former smoker with a recently diagnosed NSCLC of the RUL [id number] stage IIIA with chest wall/2nd-3rd rib local invasion causing pain. She is seen for consideration of chemoradiation. Diagnosis/Treatment History Oncologic History Per Dr. Cantu's recent note: Initially her PCP retired in 2019. She told the PCP she had a significant pain in her right shoulder for over 1 year. She had an X-ray ordered and was told she possibly had rheumatoid arthritis. An insurance nurse was checking on her once a year ago at her house 3-4 months ago. The nurse asked for further imaging. They then found out that her pain is from a mass in her lungs. Further investigations show the 2nd and 3rd ribs are involved which is likely causing her pain. She was admitted from the palliative care clinic on 05/05/21 for concern of refractory pain and hypoxia, which was later found to be due to cold fingers rather than true hypoxia. While admitted she had repeat CT chest on 05/05/21 which show only a large destructive RUL apical lesion ~8 cm in greatest extent and eroding through the 2nd and 3rd ribs and abutting the brachial plexus. No enlarged LN by size criteria. PET-CT and MRI brain are pending. Interval History Helen reports terrible aching pain in the right shoulder. She cannot abduct her arm. She is able to bend her arm at the elbow and use the right hand. She denies tingling in the fingers. She is persistently tired and does not ambulate much because of fatigue and her pain. She has been losing weight. She does not currently smoke. She is from [facility] originally, has 3 supportive daughters. Past Medical History: Depression DMII Hypothyroidism Past Surgical History: Appendectomy Ventral hernia C section x 2 Cholecystecomy Hysterectomy Family History: Father- lung cancer Social History: 55 pack year former smoker Never drinker Allergies / Meds Allergies: Coded Allergies: Scallop (Verified Allergy, Unknown, UNKNOWN, 04/28/19) Sulfa (Sulfonamide Antibiotics) (Verified Allergy, Unknown, RASH, 04/16/21) citalopram (Verified Adverse Reaction, Intermediate, racing heart, 04/28/19) Home Meds Reported Medications Docusate Sodium (Stool Softener) 100 Mg Capsule, 100 MG PO DAILY 10/27/21 Cranberry Fruit Extract/Vit C (Azo Cranberry Softgel) 1 Each Capsule, 2 CAP PO BID, CAP 05/05/21 [place]-3 Fatty Acids/Fish Oil (Fish Oil 1,000 mg Capsule) 1 Each Capsule, 1000 MG PO BID, CAP 05/05/21 Oxycodone HCl/Acetaminophen (Oxycodone-Acetaminophen 5-325) 1 Each Tablet, 1 TAB PO Q6H PRN for PAIN LEVEL 1-6 05/05/21 Aspirin (Aspirin EC) 81 Mg Tablet.dr, 81 MG PO DAILY 05/05/21 Meloxicam (Mobic) 7.5 Mg Tablet, 7.5 MG PO DAILY WITH FOOD 04/16/21 Amlodipine Besylate (Amlodipine Besylate) 2.5 Mg Tablet, 2.5 MG PO QHS 04/16/21 Clonidine Hcl (Clonidine HCl) 0.1 Mg Tablet, 0.1 MG PO BID, TAB 04/16/21 Levothyroxine Sodium (LEVOTHYROXINE SODIUM) 88 Mcg Tablet, 88 MCG PO QAM, TAB 04/16/21 Alprazolam (Alprazolam) 1 Mg Tablet, 1 MG PO QID PRN for ANXIETY, TAB 01/06/19 Fluticasone Propionate (Flonase Allergy Relief) 9.9 Ml Mobile.susp, 2 SPRAY NARES DAILY 01/06/19 Meclizine HCl (Meclizine HCl) 12.5 Mg Tab, 12.5 MG PO BID 08/19/18 Tiotropium [place] (Spiriva) 18 Mcg Cap, 18 MCG INH DAILY 08/19/18 Multivitamin (Daily Chapo) 1 Tab Tab, 1 TAB PO DAILY, TAB 08/18/18 Metformin HCl (Metformin HCl) 500 Mg Tab, 500 MG PO BID 08/18/18 Lansoprazole (Prevacid) 30 Mg Cap, 30 MG PO DAILY 08/18/18 Discontinued Reported Medications Duloxetine Hcl (Duloxetine HCl) 30 Mg Capsule.dr, 30 MG PO DAILY, CAP 04/16/21 Aspirin (Aspirin) 325 Mg Tab, 325 MG PO DAILY, TAB 08/19/18 Lisinopril (Lisinopril) 10 Mg Tablet, 10 MG PO BID, TAB 04/16/21 Discontinued Scripts Oxycodone HCl/Acetaminophen (Oxycodone-Acetaminophen 5-325) 1 Each Tablet, 1 TAB PO QIDP PRN for pain MDD 4 Tablet(s) for 30 Days, #120 TAB Prov:MARV CANTU MD 04/30/21 Review of Systems Constitutional: Reports: Weakness, Fatigue, Weight Loss; Denies: Fever Eyes: Denies: Pain HEENT: Denies: Head Aches Skin: Denies: Rash Pulmonary: Reports: Cough; Denies: Dyspnea Cardiovascular: Denies: Chest Pain, Edema Gastrointestinal: Denies: Abdominal Pain Musculoskeletal: Reports: Shoulder pain, Arm pain; Denies: Back pain, Leg pain Neurological: Reports: Weakness; Denies: Numbness Psych: Reports: Mood Normal Vital Signs Vital Signs Date Time Temp Pulse Resp B/P (MAP) Pulse Ox O2 Delivery O2 Flow Rate FiO2 05/06/21 08:12 136/59 05/06/21 06:00 98.9 75 16 93 Room Air General Exam: Alert, Cooperative, No Acute Distress Eye Exam: PERRLA, EOMI ENT EXAM: Atraumatic Neck Exam: Supple Chest Exam: Clear to auscultation, Normal air movement Heart Exam: Rate Normal, Regular Rhythm Abdomen Exam: Soft, Hernia (Large ventral); Negative: Tenderness Extremity Exam: Tenderness (Exquisite tenderness right shoulder and anteriro chest); Negative: Edema Neuro Exam: Normal Speech, Cranial Nerves 3-12 NL, Other (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 20-30 degree abduction at right shoulder limited by pain. ) Psych Exam: Mental status NL Diagnostic and Laboratory Diagnostic Review Radiologic images, relevant labs and pathology reports were personally reviewed and discussed with Ms. Alexandre. Laboratory Tests 05/05/21 13:11 05/05/21 22:16 05/06/21 05:38 Laboratory Tests 05/05/21 11:48: Coronavirus (COVID-19)(PCR) NEGATIVE 05/05/21 13:11: White Blood Count 9.8, Red Blood Count 3.79L, Hemoglobin 9.7L, Hematocrit 32.4L, Mean Corpuscular Volume 85.5, Mean Corpuscular Hemoglobin 25.6L, Mean Corpuscular Hemoglobin Concent 29.9L, Red Cell Distribution Width 15.9H, Platelet Count 256, Nucleated Red Blood Cells % (auto) 0.0, Erythrocyte Sedimentation Rate 82H, Sodium Level 134L, Potassium Level 5.5H, Chloride Level 103, Carbon Dioxide Level 30, Anion Gap 1L, Blood Urea Nitrogen 52H, Creatinine 1.06, Glomerular Filtration Rate 53.8, Fasting Glucose 97, Lactic Acid Level 1.2, Calcium Level 10.5H, Total Bilirubin 0.4, Aspartate Amino Transf (AST/SGOT) 17, Alanine Aminotransferase (ALT/SGPT) 18, Alkaline Phosphatase 76, Total Creatine Kinase 49, Creatine Kinase MB 1.2, Creatine Kinase MB Relative Index 2.45, Troponin I < 0.02, C-Reactive Protein, Quantitative 4.69H, CT-Kuf-T-Type Natriuretic Peptide 266, Total Protein 8.4H, Albumin 3.1L, Albumin/Globulin Ratio 0.6L, Procalcitonin <0.05 05/05/21 13:35: Methicillin-Resist S.aureus DNA PCR DETECTEDA 05/05/21 16:42: Bedside Glucose (Misc Panel) 89 05/05/21 21:27: Bedside Glucose (Misc Panel) 95 05/05/21 22:16: Potassium Level 4.3# 05/06/21 05:38: Potassium Level 4.4, White Blood Count 9.5, Red Blood Count 3.46L, Hemoglobin 9.1L, Hematocrit 29.0L, Mean Corpuscular Volume 83.8, Mean Corpuscular Hemoglobin 26.3L, Mean Corpuscular Hemoglobin Concent 31.4L, Red Cell Distribution Width 15.8H, Platelet Count 235, Immature Granulocyte % (Auto) 0.6, Neutrophils (%) (Auto) 63.6, Lymphocytes (%) (Auto) 22.4L, Monocytes (%) (Auto) 10.4H, Eosinophils (%) (Auto) 2.6, Basophils (%) (Auto) 0.4, Neutrophils # (Auto) 6.0, Lymphocytes # (Auto) 2.1, Monocytes # (Auto) 1.0H, Eosinophils # (Auto) 0.3, Basophils # (Auto) 0.0, Nucleated Red Blood Cells % (auto) 0.0, Sodium Level 135L, Chloride Level 106, Carbon Dioxide Level 26, Anion Gap 3L, Blood Urea Nitrogen 35H, Creatinine 0.92, Glomerular Filtration Rate > 60.0, Fasting Glucose 93, Calcium Level 9.2 Assessment and Plan Impression Ms. Alexandre is a 75 year old female former smoker with a recently diagnosed NSCLC of the RUL [id number] stage IIIA with chest wall/2nd-3rd rib local invasion causing pain. She is seen for consideration of chemoradiation. Stage RUL NSCLC [id number] stage IIIA Performance Status ECOG 2 Plan We had an extensive discussion with Ms. Alexandre regarding the diagnosis at hand and available therapeutic options. She has a large destructive T4 primary lesion in the RUL. She seeming has no enlarged hilar or mediastinal adenopathy, which renders her at this point N0. She will need to undergo PET-CT to clarify her phyllis status. She also has some adjacent enlarged axillary level II adenopathy, which may or may not be cancerous, but would easily be incorporated in any RT field. For her treatment given her exquisite pain, I favor an expedited start to her RT. The marginal benefit of added weekly chemotherapy could start after her RT course commences. She would undoubtedly be eligible for adjuvant chemotherapy and/or immunotherapy based on her stage. I have no concerns about definitive RT toxicities in this setting. She should experience pain relief promptly, she may however be neurovascularly compromised with respect to the right brachial plexus, thus her weakness in the right arm may or may not improve. I discussed this with her and she understands the caveat. For treatment I will give 60 Gy in 30 fractions to the primary mass with VMAT and a 4DCT/ITV planning approach. We discussed the logistics of receiving radiation therapy in detail including the need for a 1-time planning session. This will occur today. We reviewed the side effects of treatment, fatigue, skin reaction and neuropathy. After discussing the risks, benefits and alternatives to radiation therapy, Ms. Alexandre was amenable to pursuing radiotherapy. All questions were answered to the patient's satisfaction. We instructed the patient that if there were any questions,concerns or changes in clinical status in the interim to contact us. I also called her daughter Kirsty Deleon and discussed our plans, she is in agreement as well. Recommendations 60 Gy in 30 fractions with VMAT/4DCT/ITV to the primary mass Simulation today PET-CT as previously scheduled, can adjust volumes based on result if nodes involved Chemotherapy per Dr. Cantu Will likely start RT in advance of chemotherapy due to her pain Billing Statement Total time of [50] minutes was spent preparing for the visit [5], obtaining HPI [5], examining the patient [5], reviewing diagnostic tests [6], discussing management options [13], coordinating care [8], and writing this note [8]. NORMAN TOURE MD May 06, 2021 11:00
--- NOTE | 2021-05-07 08:56 | DSES ---
DISCHARGE SUMMARY DATE OF ADMISSION: 05/05/2021 DATE OF DISCHARGE: 05/06/2021 PRIMARY DISCHARGE DIAGNOSIS: 1. 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 2. Hypertension. 3. Failure to thrive with protein calorie malnutrition. 4. Diabetes. 5. Cancer cachexia. 6. Hypothyroidism. 7. Anxiety. 8. GERD. 9. COPD, compensated. 10.Dyslipidemia. 11.Allergic rhinitis. 12.Depression. 13.History of Zenker's diverticulum, diverticulitis and diverticulosis. 14.History of chronic neck and low back pain. 15.History of brachial neuritis. 16.History of pyelonephritis. DISCHARGE MEDICATIONS: 1. Xanax 1 mg q.i.d. as needed. 2. Norvasc 2.5 mg q.h.s. 3. Aspirin 81 mg daily. 4. Clonidine 0.1 b.i.d. 5. Cranberry capsules, two capsules b.i.d. 6. Colace 100 daily. 7. Fluticasone, two sprays in nares daily. 8. Prevacid 30 daily. 9. Synthroid 88 mcg daily. 10.Meclizine 12.5 b.i.d. 11.Meloxicam 7.5 daily. 12.Metformin 500 b.i.d. 13.Multivitamin one tablet daily. 14.[place]-3 one gram p.o. b.i.d. 15.Percocet 5/325 one tablet q. 6 as needed for pain. 16.Spiriva 18 mcg daily. DISCHARGE INSTRUCTIONS: Patient is to follow-up with Dr. Saleem for port placement for chemotherapy, Dr. Pavon for radiation oncology within a week of discharge, medical oncology, Dr. Cantu within a week of discharge for PET scan and chemotherapy, PCP within seven days. HOSPITAL COURSE: This is a 75-year-old female with a history of tobacco abuse, 1 1/2 packs per day, quit April 02, recently diagnosed with right upper lobe squamous cell lung cancer with metastatic lesions to the ribs on April 21, 2021, previously seen by Dr. Cantu with plans for PET scan and chemotherapy and referral to Dr. Pavon for palliative radiation. Patient was at her palliative care clinic appointment when she was found to be hypoxic on pulse oximetry, on routine vital signs 75 to 80% and was sent to the hospital for direct admission for further evaluation. Patient states that her fingers were cold and her hands were cold prior to checking the vital signs. On arrival to [facility], oxygen saturation was 99% on room air. Patient was not tachypneic. Chest x-ray was negative. CT of chest showed no pulmonary embolism or effusion. Right upper lobe mass is noted. EKG was sinus rhythm. Dr. Pavon was consulted for radiation to the ribs. She was marked and due to have radiation next Monday. Dr. Paniagua, of Medical Oncology covering for Dr. Cantu was consulted regarding patient's new diagnosis of squamous cell carcinoma to the right upper lobe and metastatic lesions to the ribs. CT of the chest showed no pulmonary embolism or pleural effusion. Patient was kept overnight, given Morphine and antiemetics. She had no other complaints and was discharged in stable condition. Tobacco cessation counseling was provided for her and she was referred to a fiber worker and encouraged to continue her Ensure one can t.i.d. with her meals. PHYSICAL EXAMINATION ON DISCHARGE: VITAL SIGNS: Temperature is 98.9, pulse is 75, respiratory rate is 16, blood pressure is 136/59, 93% on room air. GENERAL: Patient is awake, alert and oriented to person, place and time, cachetic with bitemporal wasting. Dry mucous membranes. Disheveled appearing. NECK: No JVD, thyromegaly, cervical lymphadenopathy or use of respiratory accessory muscles. LUNGS: Diminished but clear to auscultation. No wheezes, rales or rhonchi. HEART: S1 and S2, sinus rhythm. No murmurs, rubs or gallops. ABDOMEN: Soft, nontender and nondistended. Positive bowel sounds. EXTREMITIES: No cyanosis, clubbing or pitting edema. LABORATORY DATA/MICROBIOLOGY/IMAGING STUDIES: Please see the chart. TIME SPENT ON DISCHARGE: 30 minutes
[2021-05-13] MEDS ORDERED: PROC10TA4 PO (15:03)
[2021-05-13] MEDS ORDERED: ONDA8TAB10 PO (15:03)
== END 2021-05-06 12:17 | disposition home or self-care (01) ==
LOC: M MSPAV 11:26 → UNDOADMOB 11:26 → INTOOBSV 11:26 → UNDODISOB 05-06 12:17
PROVIDERS: ADMIT Internal Medicine; ATTEND General Practice
DX: C34.11 Malignant neoplasm of upper lobe, right bronchus or lung (principal); C79.51 Secondary malignant neoplasm of bone; R62.7 Adult failure to thrive; E46 Unspecified protein-calorie malnutrition; R64 Cachexia; E11.9 Type 2 diabetes mellitus without complications; I10 Essential (primary) hypertension; J44.9 Chronic obstructive pulmonary disease, unspecified; E03.9 Hypothyroidism, unspecified; K21.9 Gastro-esophageal reflux disease without esophagitis; E78.5 Hyperlipidemia, unspecified; J30.9 Allergic rhinitis, unspecified; F32.9 Major depressive disorder, single episode, unspecified; F41.9 Anxiety disorder, unspecified; Z79.82 Long term (current) use of aspirin; Z79.899 Other long term (current) drug therapy; Z79.84 Long term (current) use of oral hypoglycemic drugs; Z79.51 Long term (current) use of inhaled steroids; Z87.891 Personal history of nicotine dependence; Z91.013 Allergy to seafood; Z88.2 Allergy status to sulfonamides; Z88.8 Allergy status to other drugs, medicaments and biological substances
CPT/HCPCS: 36415; 71045; 71275; 77334; 80048; 80053; 82550; 82553; 83605; 83880; 84132; 84145; 84484; 85025; 85027; 85652; 86140; 87070; 87077; 87185; 87205; 87641; 94640; 96374; 97161; 97165; 97530; 97535; G0378; J0610; Q9967; U0002

== ENCOUNTER 2021-05-06 11:18 | Outpatient (RCR) | payer MEDICARE, OTHER ==
[~2021-05-06 11:18] MED LIST changes: +ASPI81TA26 PO; +AZO1CAP PO; +FISH1000 PO; +MM S100C PO
== END 2021-05-09 ==
LOC: EEVIPCON 11:18 → M ONCR 11:18
PROVIDERS: ATTEND General Practice
DX: C34.11 Malignant neoplasm of upper lobe, right bronchus or lung (principal)

== ENCOUNTER → 2021-05-10 | Outpatient (CLI) | payer MEDICARE, OTHER ==
[~2021-05-10] MED LIST changes: +LIDOCAINE 1% MDV 20ML VIAL As Ordered ONE; +MIDAZOLAM INJ 2MG/2ML VIAL (J2250 PER 1MG) As Ordered ONE; +NS 1,000 ML IV SCH; +ONDA8TAB10 PO; +PROC10TA4 PO; +ceFAZolin 2 GM/D5W 50 ML IV BAG (J0690 PER 500MG) As Ordered ONE; +ceFAZolin SOD 2 GM in IV 1 EA IV ONE; +diphenhydrAMINE 50MG/ML VIAL (J1200) As Ordered ONE; +fentaNYL 100 MCG/2 ML INJECTION (J3010) As Ordered ONE
[2021-05-10 13:10] VITALS: BP 126/56
--- NOTE | 2021-05-13 13:29 | IRHP ---
[facility] IR Pre-Procedure H & P General Date of Service: May 10, 2021 Procedure: Same Day Surgery Interval History and Physical I have seen the patient and reviewed last H & P performed within 30 days. There is no significant interval change. History of Present Illness Chief Complaint The patient is a 75-year-old female admitted with a reason for visit of Lung Ca. PRE-PROCEDURE DIAGNOSIS: Lung cancer HEART: Normal rate. LUNGS: Normal breathing at rest. ASA Classification ASA Classification: III-Severe systemic dis. Mallampati Score: II NPO: Yes Problems with prior sedation: No Obstructive Sleep Apnea: No Plan moderate sedation Allergies Coded Allergies: Scallop (Verified Allergy, Unknown, UNKNOWN, 04/28/19) Sulfa (Sulfonamide Antibiotics) (Verified Allergy, Unknown, RASH, 04/16/21) citalopram (Verified Adverse Reaction, Intermediate, racing heart, 04/28/19) Home Medications Scheduled Amlodipine Besylate (Amlodipine Besylate), 2.5 MG PO QHS, (Reported) Aspirin (Aspirin EC), 81 MG PO DAILY, (Reported) Clonidine Hcl (Clonidine HCl), 0.1 MG PO BID, (Reported) Cranberry Fruit Extract/Vit C (Azo Cranberry Softgel), 2 CAP PO BID, (Reported) Docusate Sodium (Stool Softener), 100 MG PO DAILY, (Reported) Fluticasone Propionate (Flonase Allergy Relief), 2 SPRAY NARES DAILY, (Reported) Lansoprazole (Prevacid), 30 MG PO DAILY, (Reported) Levothyroxine Sodium (Levothyroxine Sodium), 88 MCG PO QAM, (Reported) Meclizine HCl (Meclizine HCl), 12.5 MG PO BID, (Reported) Meloxicam (Mobic), 7.5 MG PO DAILY, (Reported) Metformin HCl (Metformin HCl), 500 MG PO BID, (Reported) Multivitamin (Daily Chapo), 1 TAB PO DAILY, (Reported) [place]-3 Fatty Acids/Fish Oil (Fish Oil 1,000 mg Capsule), 1,000 MG PO BID, (Reported) Tiotropium [place] (Spiriva), 18 MCG INH DAILY, (Reported) Scheduled PRN Alprazolam (Alprazolam), 1 MG PO QID PRN for ANXIETY, (Reported) Oxycodone HCl/Acetaminophen (Oxycodone-Acetaminophen 5-325), 1 TAB PO Q6H PRN for PAIN LEVEL 1-6, (Reported) VS, I&O, 24H, Fishbone Vital Signs/I&O Vital Signs Date Time Temp Pulse Resp B/P (MAP) Pulse Ox O2 Delivery O2 Flow Rate FiO2 05/10/21 13:10 63 18 96 Room Air 05/10/21 11:00 2.0 05/10/21 09:30 98.2 JOHNNY ROQUE MD May 13, 2021 13:28
--- NOTE | 2021-05-13 13:29 | IRPON ---
IR Postoperative Note Date Of Procedure: May 10, 2021 Time Of Procedure: 16:00 IR Postoperative Note IR Ultrasound and fluoroscopy guided port placement IR Ultrasound of the neck. IR Moderate sedation. Clinical indication: Lung cancer. Physician: Dr. Saleem. Procedure: The patient was advised of the benefits, risks, and alternatives of the procedure and informed consent was obtained. A time-out was performed with verification of the patient's name, MRN, site of procedure and type of procedure to be performed. The patient was positioned in the supine position on the angiographic table. The site was prepped and draped in the usual sterile fashion. Moderate sedation was performed by the physician including the presence of an independent trained RN who assisted and monitored the patient's level of consciousness and physiologic status. Following the administration of fentanyl and Versed , the physician spent 45 minutes of continuous face to face time with the patient. Ultrasound of the neck reveals a patent and compressible right internal jugular vein. A commercial representative radiograph reveals right apical mass. The neck and anterior chest wall were anesthetized with lidocaine. The right internal jugular vein was accessed using a microintroducer needle under ultrasound guidance, via a lateral approach. An 018 wire was advanced into the superior vena cava, the needle was removed and a microsheath was placed. An Amplatz wire was then passed into the inferior vena cava. An incision at the internal jugular vein access site and anterior chest wall were made using a scalpel. An incision was made at the anterior chest wall. A small pocket was created using a combination of blunt and sharp dissection. A tunneling device was then used to pass the catheter from the pocket to the neck puncture site. An 8- [place] Angio Vovici Smart power port was then positioned in the pocket. The catheter was then measured and cut. The introducer sheath was exchanged for a peel-away sheath. The catheter was passed through the peel-away sheath into the internal jugular vein and the peel-away sheath was removed. The port tip was positioned at the cavoatrial junction. The port was then accessed with a Cameron needle. The port flushes and aspirates well. The puncture site in the neck was closed. The chest wall incision was then closed with 2-0 Vicryl and 4-0 Monocryl. Glue and Steri- Strips were applied. A sterile dressing was then applied. The patient tolerated the procedure well and was returned to the PRU in stable condition. Estimated blood loss: <5 ml. Complications: None. Conclusion: 1. Successful placement of an 8-[place] Angio dynamics Smart power port via the right internal jugular vein. The port is ready for immediate use. 2. Patient to follow up in IR clinic in 2 weeks. Thank you for this referral. JOHNNY SALEEM MD May 13, 2021 13:29
== END ==
LOC: M IRPRO 09:10
PROVIDERS: ATTEND Specialist
DX: C34.11 Malignant neoplasm of upper lobe, right bronchus or lung (principal)
CPT/HCPCS: 36561; 99152; 99153; C1769; C1788; C1894; J0690; J1642; J1644; J2250; J3010

== ENCOUNTER → 2021-05-17 | Outpatient (CLI) | payer MEDICARE, OTHER ==
[~2021-05-17] MED LIST changes: -LIDOCAINE 1% MDV 20ML VIAL As Ordered ONE; -MIDAZOLAM INJ 2MG/2ML VIAL (J2250 PER 1MG) As Ordered ONE; -NS 1,000 ML IV SCH; -ceFAZolin 2 GM/D5W 50 ML IV BAG (J0690 PER 500MG) As Ordered ONE; -ceFAZolin SOD 2 GM in IV 1 EA IV ONE; -diphenhydrAMINE 50MG/ML VIAL (J1200) As Ordered ONE; -fentaNYL 100 MCG/2 ML INJECTION (J3010) As Ordered ONE
--- NOTE | 2021-05-18 16:09 | REP ---
INDICATION: STAGING RUL LUNG CANCER C34.11. COMPARISON: None. TECHNIQUE: Following the injection of 7.9 mCi of FDG-18 scans were obtained from the head through the mid thighs. FINDINGS: The right upper lobe mass has a maximum SUV of 12.39 and is consistent with tumor. There also is a focus of abnormal uptake in the right hilus with a maximum SUV of 8.36 consistent with an abnormal node. This is in phyllis station 7 R. No other abnormal areas of uptake are identified. IMPRESSION: Abnormal uptake in the right upper lobe and right hilar node lymph node as above. <Electronically signed by Kannan Wright > 05/18/21 [id number]
== END ==
LOC: M PLARAD 09:10
PROVIDERS: ATTEND Specialist
DX: C34.11 Malignant neoplasm of upper lobe, right bronchus or lung (principal)
CPT/HCPCS: 78815; A9552

== ENCOUNTER → 2021-06-08 | Outpatient (RCR) | payer MEDICARE, OTHER ==
[~2021-06-08] MED LIST changes: +AUGM12TA11 PO; +AZIT-12 PO; -CEFD1CAP8 PO; +CEFD300C41 PO; +LIDO1CRE42 TOP; -LISI-898 PO; +LISI5TAB11 PO; +LOPE2TAB12 PO; +MUCI120T PO; +ONDA-84 PO; -ONDA8TAB10 PO; -PROC10TA4 PO; +PROC10TA5 PO
== END ==
LOC: M ONCR 05-10 13:33
PROVIDERS: ATTEND General Practice
DX: C34.11 Malignant neoplasm of upper lobe, right bronchus or lung (principal)

== ENCOUNTER 2021-07-07 14:11 | Outpatient (RCR) | payer MEDICARE, OTHER ==
[~2021-07-07 14:11] MED LIST changes: -AUGM12TA11 PO; -AZIT-12 PO; +CEFD1CAP8 PO; -CEFD300C41 PO; -LIDO1CRE42 TOP; +LISI-898 PO; -LISI5TAB11 PO; -MUCI120T PO; -ONDA-84 PO; +ONDA8TAB10 PO; +PROC10TA4 PO; -PROC10TA5 PO
[2021-07-12] MEDS ORDERED: MUCI120T PO (17:46)
== END 2021-07-09 ==
LOC: M ONCR 14:11
PROVIDERS: ATTEND General Practice
DX: C34.11 Malignant neoplasm of upper lobe, right bronchus or lung (principal)

== ENCOUNTER → 2021-07-16 | Outpatient (CLI) | payer MEDICARE, OTHER ==
[~2021-07-16] MED LIST changes: +AUGM12TA11 PO; +AZIT-12 PO; -CEFD1CAP8 PO; +CEFD300C41 PO; -LISI-898 PO; +LISI5TAB11 PO; +MUCI120T PO; +ONDA-84 PO; -ONDA8TAB10 PO; -PROC10TA4 PO; +PROC10TA5 PO
== END ==
LOC: M RAD 14:49
PROVIDERS: ATTEND General Practice
DX: R91.8 Other nonspecific abnormal finding of lung field (principal); C34.11 Malignant neoplasm of upper lobe, right bronchus or lung

== ENCOUNTER 2021-07-20 14:15 | Outpatient (RCR) | payer MEDICARE, OTHER ==
[2021-07-16 15:42] LABS: APPEARANCE, URINE HAZY (CLEAR); BACTERIA, URINE AUTO NEGATIVE (NEGATIVE); BILIRUBIN, URINE AUTO NEGATIVE (NEGATIVE); BLOOD, URINE BLOOD NEGATIVE (NEGATIVE); COLOR, URINE YELLOW (YELLOW); GLUCOSE, URINE (UA) AUTO NEGATIVE (NEGATIVE); KETONE, URINE AUTO NEGATIVE (NEGATIVE); LEUKOCYTE ESTERASE, URINE AUTO 2+ (NEGATIVE); NITRITE, URINE AUTO NEGATIVE (NEGATIVE); PROTEIN, URINE AUTO 1+ mg/dL (NEGATIVE); RBC, URINE AUTO 2 /HPF (0-3); SQUAMOUS EPITHELIAL CELL UR AU 0 /HPF (0-6); WBC, URINE AUTO 100 /HPF (0-3)
[2021-08-04] MEDS ORDERED: LIDO1CRE42 TOP (13:53)
== END 2021-08-09 ==
LOC: M ONCR 14:15
PROVIDERS: ATTEND General Practice
DX: C34.11 Malignant neoplasm of upper lobe, right bronchus or lung (principal)

== ENCOUNTER → 2021-07-29 | Outpatient (CLI) | payer MEDICARE, OTHER | LOC: M ONCR 14:14 | PROVIDERS: ATTEND General Practice | DX: C34.11 Malignant neoplasm of upper lobe, right bronchus or lung (principal); Z92.3 Personal history of irradiation ==

== ENCOUNTER → 2021-08-12 | Outpatient (CLI) | payer MEDICARE, OTHER ==
[~2021-08-12] MED LIST changes: +LIDO1CRE42 TOP
== END ==
LOC: M ONCR 11:41
PROVIDERS: ATTEND General Practice
DX: C34.11 Malignant neoplasm of upper lobe, right bronchus or lung (principal); M79.601 Pain in right arm

== ENCOUNTER → 2021-08-19 | Outpatient (CLI) | payer MEDICARE, OTHER ==
[~2021-08-19] MED LIST changes: +ISOVUE-370 76% 100ML VIAL As Ordered ONE
== END ==
LOC: M RAD 14:14
PROVIDERS: ATTEND Specialist
DX: C34.11 Malignant neoplasm of upper lobe, right bronchus or lung (principal)
CPT/HCPCS: 71260; Q9967

== ENCOUNTER → 2021-09-09 | Outpatient (CLI) | payer MEDICARE, MEDICAID ==
[~2021-09-09] MED LIST changes: -ISOVUE-370 76% 100ML VIAL As Ordered ONE; +MIRT1TAB16 PO
== END ==
LOC: M ONCR 11:06
PROVIDERS: ATTEND General Practice
DX: C34.11 Malignant neoplasm of upper lobe, right bronchus or lung (principal); R41.0 Disorientation, unspecified